=== PATIENT | female | born 1940 | race Caucasian/White ===

== ENCOUNTER 2022-11-15 08:52 | Outpatient (OUT) | payer MEDICARE, SELFPAY ==
--- NOTE | 2022-11-15 09:01 | MM_ITS ---
Patient: SURAJ LEWIS Exam Date: 11/15/2022 : 1940 Gender:F Ordering : MRS. WEI RIVER . Admission #: [id number] Family : Order #: [id number] CLICK HERE TO VIEW EXAM RADIOLOGY REPORT PROCEDURE: MM TOMOSYNTHESIS SCREENING BI COMPARISON: MG MAMM SCREEN FARIBA W CAD, 02/26/2020. MG MAMM SCREEN FARIBA W CAD, 05/29/2017. INDICATIONS: Screening Calculator Name NCI Breast Cancer Risk Assessment Tool 5 Year Breast Cancer Risk 1.10% Lifetime Breast Cancer Risk 1.30% Personal Breast Cancer No Personal Ovarian Cancer No Treatments None Family Cancers None LOCATION: [facility] BREAST COMPOSITION: Heterogeneously dense,which may obscure small masses. FINDINGS: DIAGNOSTIC CATEGORY 2--BENIGN FINDING: RIGHT BREAST: No significant suspicious finding. Scattered benign-appearing calcifications are present. No significant change has occurred. LEFT BREAST: No significant suspicious finding. Scattered benign-appearing calcifications are present. No significant change has occurred. RECOMMENDATIONS: ROUTINE MAMMOGRAM AND CLINICAL EVALUATION IN 12 MONTHS. PLEASE NOTE: A NORMAL MAMMOGRAM DOES NOT EXCLUDE THE POSSIBILITY OF BREAST CANCER. A CLINICALLY SUSPICIOUS PALPABLE LUMP SHOULD BE BIOPSIED. Dictated by: Juan Antonio Montes De Oca M.D. on 11/15/2022 at 14:09 Approved by: Juan Antonio Montes De Oca M.D. on 11/15/2022 at 14:23
--- NOTE | 2022-11-15 09:40 | XR_ITS ---
[address] [address] Patient Name: SURAJ LEWIS MRN: [id number] date: 1940 Sex: F Assigned Patient Location: [facility] Current Patient Location: [facility] Accession/Order Number: [id number] Exam Date: 11/15/2022 09:30 Report Date: 11/15/2022 09:46 At the request of: WEI RIVER Procedure: XR DEXA axial skeleton EXAMINATION: XR DEXA axial skeleton HISTORY: Primary Ovarian Failure Z00.0 COMPARISON: DEXA bone densitometry 02/26/2020 TECHNIQUE: Dual-energy X-ray absorptiometry (DXA) was performed. FINDINGS: SPINE ANALYSIS: Average bone mineral density is 1.440 g/cm2. T-score (standard deviation relative to young adult mean): 2.2 . +6.8% change since prior study. HIP ANALYSIS: Lowest bone mineral density is within the left femoral neck, 0.759 g/cm2. T-score (standard deviation relative to young adult mean): -2.0 . -1.7% change since prior study. XR/XR DEXA axial skeleton IMPRESSION: [employer] Classification: Osteopenia - Moderate Fracture Risk Electronically authenticated by: JANE CHERRY Date: 11/15/2022 09:46
== END 2022-11-15 08:53 | disposition home or self-care (01) ==
LOC: MAMMO 08:52
PROVIDERS: PCP Nurse Practitioner; Visit Provider Nurse Practitioner
DX: E28.39 Other primary ovarian failure (principal); Z12.31 Encounter for screening mammogram for malignant neoplasm of breast; M85.80 Other specified disorders of bone density and structure, unspecified site
CPT/HCPCS: 77063; 77067; 77080

== ENCOUNTER 2024-04-06 11:38 | Outpatient (OUT) | payer MEDICARE, SELFPAY ==
--- OUTSIDE RECORDS SUMMARY | 2024-04-06 12:00 | XMS_ITS | CCD ---
Author Organization [facility] Care Team Providers Care Meter Reading Clerk Name Role Phone Fior Collins Unavailable Jacob Finley Unavailable PENNY, DR INDIA Mccullough Attending Unavailable LINDA, DR INDIA Mccullough Admitting Unavailable LINDA, DR INDIA Mccullough Primary Care Unavailable LINDA, DR INDIA Mccullough Consulting Unavailable LINDA, DR INDIA Mccullough Consulting Unavailable LINDA, DR INDIA Mccullough Primary Care Unavailable LINDA, DR INDIA Mccullough Attending Unavailable LINDA, DR INDIA Mccullough Admitting Unavailable LINDA, DR INDIA Mccullough Attending Unavailable LINDA, DR INDIA Mccullough Primary Care Unavailable LINDA, DR INDIA Mccullough Admitting Unavailable LINDA, DR INDIA Mccullough Consulting Unavailable WEST, DR SADE Aceves Consulting Unavailable LINDA, DR INDIA Mccullough Admitting Unavailable LINDA, DR INDIA Mccullough Primary Care Unavailable LINDA, DR INDIA Mccullough Attending Unavailable LINDA, DR INDIA Mccullough Consulting Unavailable LINDA, DR INDIA Mccullough Attending Unavailable LINDA, DR INDIA Mccullough Primary Care Unavailable LINDA, DR INDIA Mccullough Admitting Unavailable LINDA, DR INDIA Mccullough Consulting Unavailable LINDA, DR INDIA Mccullough Admitting Unavailable LINDA, DR INDIA Mccullough Primary Care Unavailable LINDA, DR INDIA Mccullough Attending Unavailable LINDA, DR INDIA Mccullough Consulting Unavailable PENNY, DR INDIA Mccullough Admitting Unavailable LINDA, DR INDIA Mccullough Primary Care Unavailable LINDA, DR INDIA Mccullough Consulting Unavailable PENNY, DR INDIA Mccullough Attending Unavailable WEST, DR SADE Aceves Consulting Unavailable PENNY, DR INDIA Mccullough Admitting Unavailable LINDA, DR INDIA Mccullough Primary Care Unavailable LINDA, DR INDIA Mccullough Consulting Unavailable LINDA, DR INDIA Mccullough Attending Unavailable DILIP, DR JANE Alcala Consulting Unavailable PENNY, DR INDIA Mccullough Admitting Unavailable LINDA, DR INDIA Mccullough Primary Care Unavailable LINDA, DR INDIA Mccullough Consulting Unavailable PENNY, DR INDIA Mccullough Referring Unavailable LINAD, DR INDIA Mccullough Attending Unavailable LINDA, DR INDIA Mccullough Admitting Unavailable LINDA, DR INDIA Mccullough Primary Care Unavailable PENNY, DR INDIA Mccullough Consulting Unavailable PENNY, DR INDIA Mccullough Attending Unavailable MELCHOR FISH Consulting Unavailable MD India Linda Primary Care Provider DO Jacob Finley Attending Provider [phone] INDIA LINDA Primary Care Physician SHENDGE, VITHAL Referring Unavailable SHENDGE, VITHAL Attending Unavailable SHENDGE, VITHAL Attending Unavailable SHENDGE, VITHAL Attending Unavailable SHENDGE, VITHAL Admitting Unavailable SHENDGE, VITHAL Attending Unavailable SHENDGE, VITHAL Attending Unavailable SHENDGE, VITHAL Referring Unavailable SHENDGE, VITHAL Referring Unavailable SHENDGE, VITHAL Referring Unavailable Alejandro, Winter Da Silva Primary Care Physician [phone] Alejandro, Winter Da Silva Attending Unavailable Alejandro, Winter L Admitting Unavailable Alejandro, Winter L Attending Unavailable Alejandro, Winter L Attending Unavailable Alejandro Winter RUT[place]ORD Unavailable Unallocated , [place] Provider Primary Care Provi hari Alejandro, Winter L Admitting Unavailable Alejandro, Winter L Attending Unavailable Alejandro, Winter L Attending Unavailable Alejandro, Winter L Attending Unavailable Alejandro, Winter L Attending Unavailable Dolce, Marky D Admitting Unavailable Dolce, Marky Kiel Attending Unavailable Dolce, Marky D Referring Unavailable Unallocated MD, Noms Provider Primary Care Provi hari DOLCE, MARKY Kiel Attending Unavailable DOLCE, MARKY Kiel Attending Unavailable DOLCE, MARKY Kiel Attending Unavailable DOLCE, MARKY D Attending Unavailable CONCEPCIÓN, HAYLEY A Attending Unavailable DOLCE, MARKY D Attending Unavailable CONCEPCIÓN, HAYLEY A Attending Unavailable DOLCE, MARKY D Attending Unavailable Allergies Allergy Classification Reported Allergen(s) Allergy Type Date of Onset Reaction(s) Facility (4 sources) Aspirin; Translations: [ASPIRIN] Drug Allergy 0 [facility] Repository (1 source) Cotton Seed extract Drug Allergy 0 [facility] Repository (7 sources) Azithromycin; Translations: [azithromycin] Drug Allergy 3 Unknown (qualifier value) [facility] (2 sources) Aspirin; Translations: [aspirin] Drug Allergy 0 Unknown [facility] (2 sources) Bee/Wasp/Ant venom; Translations: [Bee Stings] Allergy to substance Anaphylaxis (disorder) [facility] Medications Current Medications Medication Drug Class(es) Dates Sig (Normalized) Sig (Original) albuterol 0.83 mg/ml inhalation solution (20 sources) beta2-Adrenergic Agonist Start: 06-11-2023 End: 06-11-2023 take 2.5 mg by inhalation four times daily Albuterol Sulfate Active 2.5 MG INHALATION Four times daily 360 30 June 11, 2023 11:57am J44.9 Start: 06-04-2023 take 1 puff(s) by in halation every four hours as needed Albuterol Sulfate Active 1 PUFF INHALATION Every 4 hours June 04, 2023 12:00am FreeTextSi puff as needed Inhalation every 4 hrs; Note: Source Status: Refill; Refills: 11; Provider: Dennis Ramirez Start: 06-04-2023 End: 06-11-2023 take 1 mg by inhalation four times daily Albuterol Sulfate Discontinued MG INHALATION June 04, 2023 12:00am June 11, 2023 11:51am FreeTextSig: as directed Inhalation Four times daily DX COPD J44.9; Note: Source Status: Continue; Provider: Dennis Childress ( ) Start: 11-27-2022 take 1 puff(s) by in halation every four hours as needed albuterol HFA 90 mcg/act inhaler INHALE 1 PUFF EVERY 4 HOURS NEEDED 11/27/2022 Active Albuterol Sulfat e (2.5 MG/3ML) 0.083% as directed Inhalation Four times daily DX COPD J44.9 Active take 1 puff(s) by in halation every four hours as needed Albuterol Sulfate HFA 108 (90 Base) MCG/ACT 1 puff as needed Inhalation every 4 hrs for 30 days Active take 1 puff(s) by in halation every four hours as needed Albuterol Sulfate HFA 108 (90 Base) MCG/ACT 1 puff as needed Inhalation every 4 hrs Active alendronic acid 35 mg oral tablet (13 sources) Bisphosphonate Start: 12-18-2023 take 35 mg by mouth every week Alendronate Active 35 MG PO every week December 18, 2023 12:00am Start: 11-15-2022 alendronate (F osamax) 35 MG tablet TAKE ONE TABLET BY MOUTH ONCE WEEKLY (EVERY 7 DAYS) 11/15/2022 Active Allergy (2 sources) Start: 07-16-2022 Allergy Refill s(s) 0 Start Date: 07/16/22 Status: Ordered atorvastatin 10 mg oral tablet (6 sources) HMG-CoA Reductase Inhibitor Start: 12-23-2023 take 1 tablet by mouth at bedtime atorvastatin 10 mg Tab 10 mg = 1 tab(s), Oral, Bedtime, # 90 tab(s), Refills(s) 0, [facility], 164.5, cm, 12/23/23 11:31:00 EDT, Height/Length Dosing, 69.8, kg, 12/23/23 11:31:00 EDT, Weight Dosing Start Date: 12/23/23 Status: Ordered Start: 07-02-2022 take 10 mg by mouth every other day Atorvastatin Active 10 MG PO .qod June 11, 2023 12:00am B-Complex with B-12 oral tablet (2 sources) Start: 07-16-2022 B-Complex with B-12 oral tablet 1 tab(s), Oral, Daily, 30 tab(s), Refill(s) 0 Start Date: 07/16/22 Status: Ordered Breo Ellipta 100-25 MCG/INH (1 source) take 1 puff(s) by inhalation once daily Breo Ellipta 100-25 MCG/INH 1 puff Inhalation Once a day for 90 days Active cetirizine hydrochloride 10 mg oral capsule (2 sources) Histamine-1 Receptor Antagonist Start: 06-11-2023 take 1 capsule by mouth once daily Cetirizine (Allergy Relief (Cetirizine)) 10 mg capsule Active 10 MG PO Daily June 11, 2023 12:00am dorzolamide / Timolol (1 source) Carbonic Anhydrase Inhibitor, beta-Adrenergic Bambi Start: 12-18-2023 take 1 drop(s) into the eye(s) once Dorzolamide-Timol ol Active 1 DROPS OPHTHALMIC Once December 18, 2023 12:00am fluticasone / salmeterol (2 sources) Corticosteroid, beta2-Adrenergic Agonist Start: 07-02-2022 Advair Diskus 500 mcg-50 mcg inhalation powder See Instructions, Refill(s) 0, one inhalation daily Start Date: 07/02/22 Status: Ordered 30 actuat fluticasone furoate 0.1 mg/actuat / vilanterol 0.025 mg/actuat dry powder inhaler (19 sources) Corticosteroid, beta2-Adrenergic Agonist Start: 06-12-2023 take 1 puff(s) by mouth once daily Fluticasone Furoate-Vilantero l (Breo Ellipta) 100-25 mcg/dose blister with device Active 0 .ROUTE .COMPLEX 360 June 12, 2023 11:58am inhale 1 puff by mouth and INTO THE LUNGS once daily Start: 06-04-2023 End: 06-12-2023 take 1 puff(s) by inhalation once daily Fluticasone Furoate-Vilanterol (Breo Ellipta) 100-25 mcg/dose blister with device Discontinued 1 PUFF INHALATION Daily June 04, 2023 12:00am June 12, 2023 11:59am FreeTextSi puff Inhalation Once a day; Note: Source Status: Refill; Refills: 11; Provider: Dennis Childress take 1 puff(s) by mo [facility] once daily Breo Ellipta 100-25 MCG/ACT aerosol powder INHALE 1 PUFF BY MOUTH DAILY Active hydroCHLOROthiazide 12.5 mg oral capsule (20 sources) Thiazide Diuretic Start: 07-16-2022 End: 12-18-2023 take 1 capsule by mouth once daily hydrochlorothiazide 12.5 mg Cap 12.5 mg = 1 cap(s), Oral, Daily, Refills(s) 0 Start Date: 07/16/22 Status: Ordered Start: 10-06-2020 take 1 tablet by [facility] every twenty-four hours hydroCHLOROthiazide 12.5 MG 1 tablet in the morning Orally Once a day for 90 days Sep, Active magnesium oxide 250 mg oral tablet (2 sources) Start: 06-11-2023 take 1 tablet by mouth once daily Magnesium Oxide Active 1 TAB PO Daily June 11, 2023 12:00am FreeTextSi tablet with a meal Orally Once a day; Note: Source Status: Not-Taking\PRN; Provider: Dennis Childress ( ) meloxicam 7.5 mg oral tablet (2 sources) Nonsteroidal Anti-inflammatory Drug Meloxicam 7.5 MG Ora l for 30 Days Active Misc Medication (2 sources) Start: 2022 Misc Medication collagen, Daily Start Date: 11/08/22 Status: Ordered Multi For Her - (7 sources) Multi For Her - as directed Orally Active Multivitamin (Daily Multi-Vitamin) tablet (2 sources) Start: 06-04-2023 take 1 tablet by mouth once daily Multivitamin (Daily Multi-Vitamin) tablet Active 1 TAB PO Daily June 04, 2023 12:00am Oxygen (2 sources) Start: 06-04-2023 Oxygen Active 0 .Route June 04, 2023 12:00am 2 liters at night and prn Opendisc Oxygen - for Home (2 sources) Start: 07-16-2022 Oxygen - for Home 2 L/min, Daily, Refill(s) 0, Oxygen - At HS Start Date: 07/16/22 Status: Ordered Oxygen 2 liters (3 sources) Oxygen 2 liters at night AND PRN with long activity Active Oxygen 3 liters (4 sources) Oxygen 3 liters at night Active Potassium gluconate (6 sources) take 1 tablet by mouth once daily Potassium Gluconate 595 (99 K) MG 1 tablet Orally Once a day Active predniSONE (1 source) Start: 10-23-2023 predniSONE 10 mg Tab 0 Refill(s), Refills(s) 0 Start Date: 10/23/23 Status: Ordered Ventolin HFA 90 mcg/inh Aerosol-Adpt (4 sources) Start: 07-02-2022 Ventolin HFA 90 mcg/inh Aerosol-Adpt See Instructions, Refill(s) 0, 1-2 puffs inhaled 4 times a day when needed Start Date: 07/02/22 Status: Ordered Vitamin B-12 ER 1000 MCG (4 sources) take 1 tablet by mouth once daily Vitamin B-12 ER 1000 MCG 1 tablet Orally Once a day Active vitamin b12 1 mg oral tablet (5 sources) Vitamin B12 Start: 06-04-2023 take 1 tablet by mouth once daily Cyanocobalamin (Vitamin B-12) (Vitamin B-12) 1,000 mcg tablet Active 1000 MCG PO Daily June 04, 2023 12:00am take 1 tablet by angy th every twenty-four hours Vitamin B-12 ER 1000 MCG 1 tablet Orally Once a day Active Completed/Discontinued Medications Medication Drug Class(es) Dates Sig (Normalized) Sig (Original) Magnesium (7 sources) take 1 tablet by angy th once daily Magnesium 250 MG 1 tablet with a meal Orally Once a day Not-Taking take 1 tablet by mouth once tavon y Magnesium 250 MG 1 tablet with a meal Orally Once a day Active One A Day Women's Complete (2 sources) Start: 07-16-2022 One A Day Wome n's Complete Refill(s) 0 Start Date: 07/16/22 Status: Ordered Problems Active Problems Problem Classification Problem Date Documented Da te Episodic/Chronic Acquired foot deformities (5 sources) Hallux valgus (acquired), left foot; Translations: [Hallux valgus (acquired)] 01-18-2024 Chronic Asthma (18 sources) Asthma; Translations: [Asthma-chronic obstructive pulmonary disease overlap syndrome] Onset: 01-28-2023 07-02-2022 Chronic Comment on above: extrinisc without st atus asthmaticus Chronic obstructive pulmonary disease and bronchiectasis (20 sources) Chronic obstructive lung disease; Translations: [Chronic obstructive pulmonary disease, unspecified] Onset: 01-12-2021 Resolved: 12-12-2021 Chronic Coagulation and hemorrhagic disorders (2 sources) Coagulation defect, unspecified; Translations: [Coagulation defect, unspecified] Onset: 09-07-2022 Chronic Diabetes mellitus with complications (1 source) Disorder of nervous system due to type 2 diabetes mellitus; Translations: [Type 2 diabetes mellitus with other diabetic neurological complication] 01-18-2024 Chronic Disorders of lipid metabolism (19 sources) Pure hypercholesterolemia , unspecified; Translations: [Hyperlipidemia, unspecified] Onset: 01-16-2021 Chronic Fracture of lower limb (3 sources) Nondisplaced fracture of fifth metatarsal bone, left foot, initial encounter for closed fracture; Translations: [Nondisplaced fracture of fifth metatarsal bone, left foot, subsequent encounter for fracture with routine healing] Onset: 09-20-2021 Resolved: 10-27-2021 Episodic Mycoses (1 source) Onychomycosis; Translations: [Tinea unguium] 01-18-2024 Episodic Osteoarthritis (7 sources) Unilateral primary osteoarthritis, right hip; Translations: [Osteoarthritis of hip] Onset: 11-15-2021 07-02-2022 Chronic Other acquired deformities (2 sources) Unequal limb length (acquired), right femur; Translations: [Unequal limb length (acquired), right femur] Onset: 01-18-2023 Episodic Other and ill-defined heart disease (7 sources) Heart disease; Translations: [Heart disease, unspecified] Chronic Other and ill-defined heart disease (4 sources) Heart disease, unspecified; Translations: [Diastolic dysfunction without heart failure I51.9] Onset: 01-12-2021 Resolved: 12-12-2021 Chronic Other and ill-defined heart disease (2 sources) Diastolic dysfunction; Translations: [Other ill-defined heart diseases] 06-10-2023 Chronic Other and ill-defined heart disease (2 sources) Other ill-defined heart diseases; Translations: [Heart disease, unspecified] 06-11-2023 Chronic Other bone disease and musculoskeletal deformities (2 sources) Osteopenia 10-23-2023 Episodic Other connective tissue disease (2 sources) Presence of right artificial hip joint; Translations: [Presence of right artificial hip joint] Onset: 01-18-2023 Chronic Other connective tissue disease (1 source) Pain in left foot; Translations: [PAIN IN LEFT FOOT] Onset: 09-20-2021 Episodic Other connective tissue disease (1 source) Pain of toe of right foot; Translations: [Pain in right toe(s)] 01-18-2024 Episodic Other connective tissue disease (1 source) Pain of toe of left foot; Translations: [Pain in left toe(s)] 01-18-2024 Episodic Other ear and sense organ disorders (3 sources) Sensorineural hearing loss, bilateral; Translations: [Sensorineural hearing loss, bilateral] 12-19-2023 Chronic Other lower respiratory disease (12 sources) Hypoxia; Translations: [Hypoxemia] 07-02-2022 Episodic Other lower respiratory disease (7 sources) Dyspnea on exertion; Translations: [Dyspnea, unspecified] Episodic Other non-traumatic joint disorders (4 sources) Pain in left ankle and joints of left foot; Translations: [PAIN IN LEFT ANKLE] Onset: 09-15-2021 Episodic Other non-traumatic joint disorders (4 sources) Disorder of shoulder 07-02-2022 Episodic Other non-traumatic joint disorders (4 sources) Hip pain 07-02-2022 Episodic Other nutritional; endocrine; and metabolic disorders (1 source) Overweight in adulthood with body mass index of 25 or more but less than 30 12-23-2023 Episodic Peripheral and visceral atherosclerosis (3 sources) Peripheral vascular disease, unspecified; Translations: [Peripheral vascular disease, unspecified] 01-18-2024 Chronic Residual codes; unclassified (7 sources) Sleep apnea; Translations: [Sleep apnea, unspecified] Chronic Respiratory failure; insufficiency; arrest (adult) (1 source) Chronic hypoxemic respiratory failure 10-24-2023 Chronic Comment on above: added per 10/22/2023 query response. Unclassified (3 sources) COUGH, UNSPECIFIED; Translations: [COUGH, UNSPECIFIED] Onset: 07-20-2021 Unclassified (3 sources) CONTACT W/AND (SUSP) EXPOS COVID-19; Translations: [CONTACT W/AND (SUSP) EXPOS COVID-19] Onset: 12-07-2020 Unclassified (2 sources) Patient encounter status 10-23-2023 Viral infection (4 sources) COVID-19; Translations: [COVID-19] Onset: 12-21-2020 Past or Other Problems Problem Classification Problem Date Documented Da te Episodic/Chronic Deficiency and other anemia (1 source) Anemia, unspecified; Translations: [ANEMIA UNSPECIFIED] Onset: 06-21-2021 Episodic Deficiency and other anemia (4 sources) Iron deficiency anemia, unspecified; Translations: [IRON DEFICIENCY ANEMIA UNSPECIFIED] Onset: 01-10-2021 Episodic Deficiency and other anemia (11 sources) Iron deficiency anemia; Translations: [Iron deficiency anemia, unspecified] Onset: 07-06-2022 Resolved: 01-18-2024 07-02-2022 Episodic Glaucoma (9 sources) Glaucoma; Translations: [Unspecified glaucoma] Onset: 01-18-2024 Resolved: 01-18-2024 10-22-2023 Chronic Comment on above: noted in 08/30/2023 [facility] Consult Note page 1. added per OP CDI. Immunizations and screening for infectious disease (1 source) Encounter for immunization; Translations: [ENCOUNTER FOR IMMUNIZATION] Onset: 12-23-2020 Episodic Malaise and fatigue (1 source) Other fatigue; Translations: [OTHER FATIGUE] Onset: 01-16-2021 Episodic Other lower respiratory disease (1 source) Hypoxemia; Translations: [Hypoxia R09.02] Onset: 01-12-2021 Resolved: 01-12-2021 Episodic Other lower respiratory disease (4 sources) Cough; Translations: [COUGH] Onset: 12-13-2020 Episodic Other non-traumatic joint disorders (6 sources) Pain in right hip; Translations: [PAIN IN RIGHT HIP] Onset: 11-13-2021 Episodic Retinal detachments; defects; vascular occlusion; and retinopathy (13 sources) Exudative age-related macular degeneration; Translations: [Nonexudative age-related macular degeneration] Onset: 01-18-2024 Resolved: 01-18-2024 10-22-2023 Chronic Comment on above: noted in 08/30/2023 [facility] Consult Note page 1. added per OP CDI. Spondylosis; intervertebral disc disorders; other back problems (2 sources) Radiculopathy, lumbosacral region; Translations: [Radiculopathy, lumbosacral region] Onset: 09-07-2022 Episodic Unclassified (6 sources) Post COVID-19 condition, unspecified; Translations: [Post COVID-19 condition, unspecified] Unclassified (1 source) Post COVID-19 condition, unspecified U09.9; Translations: [Post COVID-19 condition, unspecified U09.9] Onset: 01-12-2021 Resolved: 01-12-2021 Unclassified (1 source) COUGH, UNSPECIFIED; Translations: [COUGH, UNSPECIFIED] Onset: 07-18-2021 Unclassified (1 source) CONTACT W/AND (SUSP) EXPOS COVID-19; Translations: [CONTACT W/AND (SUSP) EXPOS COVID-19] Onset: 12-15-2020 Unclassified (1 source) Post-acute COVID-19 (disorder); Translations: [Post COVID-19 condition, unspecified] Unclassified (1 source) PAD (peripheral artery disease) ([facility]) 01-17-2024 Results Test Name Value Interpretation Reference Range Facility US PVR Lower EXT Complete Bi laton 02-27-2024 US PVR Lower EXT Complete Bilat Exam Date/Time: 02/27/2024 12:43 EST Reason for Exam: I73.9 Report IMPRESSION: EVIDENCE OF MILD ARTERIAL STENOTIC DISEASE INVOLVING THE LEFT LOWER EXTREMITY. NO EVIDENCE OF SIGNIFICANT ARTERIAL STENOTIC DISEASE INVOLVING THE RIGHT LOWER EXTREMITY. CLINICAL HISTORY: I73.9. COMPARISON: None available. FINDINGS: On the right, the brachial systolic pressure is 164 the high thigh pressure is 250 , index 1.52 the low thigh pressure is 234 , index 1.43 the calf pressure is 175 , index 1.07 the posterior tibial ankle pressure is 184 , index 1.12 the dorsalis pedis ankle pressure is 184 , index 1.12 and the digit pressure is 100 , index 0.61 (with normal 0.7 or greater). The plethysmography waveforms are mild to moderately abnormal. On the left, the brachial systolic pressure is 156 the high thigh pressure is 184 , index 1.12 the low thigh pressure is 183 , index 1.12 the calf pressure is 150 , index 0.91 the posterior tibial ankle pressure is 144 , index 0.88 the dorsalis pedis ankle pressure is 156 , index 0.95 and the digit pressure is 70, index 0.43 (with normal 0.7 or greater). The plethysmography waveforms are mild to moderately abnormal. Ordering Provider: Marky Bell FINAL REPORT Dictated: 02/27/2024 1:17 pm Timi Oswald MD Signed (Electronic Signature): 02/27/2024 1:17 pm Signed by: Timi Oswald MD Transcribed by: SHANNAN Technologist: ROSE Butts [facility] Ambulatory Visit Summaryon 0 12-23-2023 Ambulatory Visit Summary Ambulatory Visit Summary SURAJ HUYNH :1940 Visit Date:12/23/2023 Ambulatory Visit Instructions Your Diagnosis Encounter for general adult medical examination with abnormal findings Asthma Pulmonary emphysema Hyperlipidemia Osteopenia Immunization refused Overweight Your Care Team Attending Physician - iWnter Noriega Primary Care Physician - Winter Noriega This Is Your Medications List Non-Formulary Medication (Misc Medication) Oxygen (Oxygen - for Home) albuterol (Ventolin HFA 90 mcg/inh Aerosol-Adpt) alendronate (alendronate 35 mg Tab) atorvastatin (atorvastatin 10 mg Tab) diphenhydrAMINE (Allergy) hydrochlorothiazide (hydrochlorothiazide 12.5 mg Cap) multivitamin (B-Complex with B-12 oral tablet) multivitamin with minerals (One A Day Women's Complete) Procedures Performed Biopsy of breast, Colonoscopy, IH - Inguinal hernia, LILLIAN BSO - Total abdominal hysterectomy and bilateral salpingo-oophorectomy, Tonsillectomy and adenoidectomy. Discharge Vitals Heart Rate (Peripheral) 60 Respiratory Rate 14 Blood Pressure 136/58 Height 65 in Height 164.5 cm Weight 153.56 lb Weight 69.8 kg BMI 25.79 What to do next Scheduled Follow-Up Appointments Saturday 10:20 AM EST With: Winter Noriega Where: [address] [id number]- Saturday 11:00 AM EDT With: Where: [address] [id number]- Medications What How Much When Instructions Unchanged albuterol (Ventolin HFA 90 mcg/ inh Aerosol-Adpt) See instructions 1-2 puffs inhaled 4 times a day when needed Unchanged alendronate (alendronate 35 mg Tab) 1 Tablets By Mouth Every 7 days Unchanged atorvastatin (atorvastatin 10 mg Tab) 1 Tablets By Mouth At bedtime Unchanged diphenhydrAMINE (Allergy) Unchanged hydrochlorothiazide (hydrochlorothiazide 12.5 mg Cap) 1 Capsules By Mouth Every day Unchanged multivitamin (B-Complex with B-12 oral tablet) 1 Tablets By Mouth Every day Unchanged multivitamin with minerals (One A Day Women's Complete) Unchanged Non-Formulary Medication (Misc Medication) collagen Every day Unchanged Oxygen (Oxygen - for Home) 2 Liter/minute Every day Oxygen - At Medications and Immunizations Administered Not Given influenza virus vaccine, inactivated, Patient Refuses Allergies Bee Stings (Anaphylactic reaction) aspirin (Unknown) azithromycin (Unknown) Problems Ongoing - Any problem that you are currently receiving treatment for. 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 Macular degeneration, wet Patient Survey You may receive a survey via text or e-mail asking about your office visit. Please share your experience with us by completing your survey. We appreciate your feedback and thank you for choosing us for your care. Education Materials BMI for Adults Body mass index (BMI) is a number found using a person's weight and height. BMI can help tell how much of a person's weight is made up of fat. BMI does not measure body fat directly. It is used instead of tests that directly measure body fat, which can be difficult and expensive. What are BMI measurements used for? BMI is useful to: ? Find out if your weight puts you at higher risk for medical problems. ? Help recommend changes, such as in diet and exercise. This can help you reach a healthy weight. BMI screening can be done again to see if these changes are working. How is BMI calculated? Your height and weight are measured. The BMI is found from those numbers. This can be done with U.S. or metric measurements. Note that charts and online BMI calculators are available to help you find your BMI quickly and easily without doing these calculations. To calculate your BMI in U.S. measurements: 1. Measure your weight in pounds (lb). 2. Multiply the number of pounds by 703. ? So, for an adult who weighs 150 lb, multiply that number by 703: 150 x 703, which equals 105,450. 3. Measure your height in inches. Then multiply that number by itself to get a measurement called inches squared. ? So, for an adult who is 70 inches tall, the inches squared measurement is 70 inches x 70 inches, which equals 4,900 inches squared. 4. Divide the total from step 2 (number (more content not included)... Normal [facility] Family Medicine Office/Clini c Noteon 12-23-2023 Family Medicine Office/Clinic Note Family Medicine Office/Clinic Note Chief Complaint Subsequent Medicare Wellness Review of Systems PHQ Score Initial Depression Screen Score: 0 SCORE Physical Exam Vitals & Measurements HR: 60(Peripheral) RR: 14 BP: 136/58 SpO2: 93% HT: 164.5 cm HT: 65 in WT: 69.8 kg WT: 153.56 lb BMI: 25.79 Assessment/Plan 1. Encounter for general adult medical examination with abnormal findings (Z00.01: Encounter for general adult medical examination with abnormal findings) The patient was given a customized and personalized print out of all the current AHRQ USPSTF?s recommendations for preventative services and all current CDC recommended immunizations, relevant risk recommendations and the following patient brochures were given. Reviewed Medicare Prevention Services checklist. CDC-Falls Prevention and home safety screening reviewed. Patient reports one fall in last 12 months, voices no worry about falling. Patient reports wearing the wrong shoes, tripped and fell in kitchen with coffee mug breaking and cutting left index finger. Patient reports it is in the bend of the finger. Patient reports finger is still bleeding some when bending finger. Recommended new skin with lidocaine or no suture suture (spoke with MAN Max and Dr. Heredia). Exhibits no problems with sitting, standing or ambulation. Patient aware with keeping walk way area free of clutter to prevent tripping and/or falling. [place] Advance Directives reviewed. Documents remain at home, encouraged to bring in for scanning into chart. Patient is not an organ donor. Patient denies any problems with ADL?s and Instrumental ADL?s. Cognitive screening completed with memory and clock face drawing. Patient did not complete clock correctly and did not remember any of the 3 memory words. Completed the MMSE screening, score 30. Immunization record reviewed, discussed Shingrix vaccine with educational handout and availability. 2 COVID vaccines have been administered. Allergies and medications reviewed and up to date. No concerns with taking medication as prescribed. Reviewed OTC medications, medication list up to date. Blood tests were reviewed: Up to date. No concerns with bowel/ bladder. Patient no longer does colonoscopy screenings due to age. Reviewed pain symptoms : back pain in the last month, rates pain as a 3 out of 10. Patient reports pain has subsided, no pain today. Reviewed all outside providers that patient follows. Last visit summary notes available in chart and/or have been requested. Patient declines any signs or symptoms of depression at this time. 8 minutes spent with screening and documentation. PHQ2 screening score 0. Patient drinks alcohol every day 1 drinks in the evening, denies concerns. 8 minutes spent with screening and documentation. Audit score 4. Follow up scheduled with PCP, 04/06/2024 AWV has been scheduled, 12/22/2024 Medicare provides yearly screening for alcohol and depression concerns. This is completed during our Medicare wellness visit for those who do not have a current diagnosis of depression or concerns with alcohol use. I spent a total of 17 minutes on this date of service which included preparing to see the patient, face to face patient care, completing clinical documentation, obtaining and/or reviewing separately obtained history, counseling and educating the patient with handouts. Explanations were provided with reviewing questionnaires. AUDIT risk assessment screening completed, risk score 4 with patient denying concerns with use. Completed PHQ-2 risk assessment for depression with risk score 0, negative findings. Patient has been reminded to notify the provider if there would be a change or concerns with symptoms with fear, unable to sleep, worrying too much or feeling down and/or sad with lost of interest with daily activities. Will continue to monitor with screening yearly during Medicare wellness visits. 2. Asthma (J45.909: Unspecified asthma, uncomplicated) Patient has albuterol rescue inhaler, denies using it on a regular basis. Patient is unsure when she used it last. Patient follows with Dr Irene, Pulmonology. 3. Pulmonary emphysema (J43.9: Emphysema, unspecified) see #2 Patient pulse ox initially today 91% room air, about 10 minutes later it was increased to 93%. Patient denies shortness of breath. Patient does not show labored breathing. Patient reports that she uses 2 liters of oxygen at night while sleeping. 4. Hyperlipidemia (E78.5: Hyperlipidemia, unspecified) Reviewed healthy lifestyle with low fat diet and exercise regimen. When you are overweight our body produces more lipids. Risk also increases with family history of hyperlipidemia and with monitoring alcohol use and avoid smoking. Pt voices understanding with importance of monitoring dietary intake to reduce risk factors associated with CVA. Taking statin medications daily as directed. Will continue to follow up with office visits with updated labs as directed. 5. Osteopenia (M85.80: Other (more content not included)... Normal [facility] Comment on above: Result Comment: Elec tronically Signed By: Winter Noriega\.br\Date and Time Signed: 12/23/23 13:36 EDT\.br\Electronically Co-Signed By: Nina Quiroz\.br\Date and Time Co-Signed: 12/23/23 13:18 EDT Auditory function testson Right Ear: Mild sloping to profound sensorineural hearing loss above 250 Hz Left Ear: Mild sloping to severe sensorineural hearing loss [facility] Pre-Visit Planningon 024 Pre-Visit Planning Pre-Visit Planning From: Agustina Hernandez To: Winter Noriega; Sent: 10/22/2023 11:49:37 EDT Subject: Pre-Visit Planning Due Date/Time: 10/22/2023 11:49:00 EDT Caller Name: SURAJ HUYNH; Caller Number: Kamlesh , Ashely Luis Max. During a pre-visit planning chart review, I noted the following documentation in the medical record: Current Problem List: Asthma, COPD, Hypoxia, and Pulmonary emphysema. Current Medication List: albuterol, albuterol-ipratropium, Breo Ellipta, fluticasone-vilanterol , diphenhydramine, and Oxygen. 2022 Medicare Wellness Visit: COPD (chronic obstructive pulmonary disease) (J44.9: Chronic obstructive pulmonary disease, unspecified) Patient takes albuterol and Advair as prescribed with effectiveness. Patient wears 2 liters of O2 at HS. Patient using inhalers daily as directed with effectiveness. Neck measurement 11.8 inches with today's visit. Encouraged to remain active, reviewed Pulmonary nutritional recommendations handout during visit. Will continue to monitor for changes and/or concerns with office visits. Pulse ox today was 92%. Patient follows with Dr. Irene every 6 months for symptom and medication management. Based on your medical judgment, can you please clarify which, if any, of the following conditions are present? I can update the Chronic Problem List with your response if you would like. -Chronic respiratory failure with hypoxia -Other: In responding to this request, please exercise your independent professional judgment. The fact that a question is asked does not imply that any particular answer is desired or expected. If you have any questions, please feel free to contact me at extension [phone]. Thank you! Agustina Hernandez LPN Clinical Orthopedic Mechanic [place] [address] Extension: [phone] [email or web address] From: Winter Noriega To: Agustina Hernandez; Sent: 10/24/2023 11:14:03 EDT Subject: RE: Pre-Visit Planning Caller Name: SURAJ HUYNH; Caller Number: Kamlesh , Ashley chronic resp failure with hypoxia Normal [facility] Reminderson 10-24-2023 Reminders Reminders From: Winter Noriega To: [facility] - Clinical; Sent: 10/24/2023 08:04:15 EDT Show up: 10/24/2023 08:05:00 EDT Subject: Ambulatory Reminder Due Date/Time: 10/25/2023 08:04:00 EDT labs look good Results: Date Result Name Ind Value Ref Range 10/23/2023 10:17 WBC 6.0 E9/L (4.0 - 11.0) 10/23/2023 10:17 RBC 4.5 E12/L (4.3 - 5.9) 10/23/2023 10:17 HGB 12.3 gm/dL (12.0 - 16.0) 10/23/2023 10:17 Hct 38.2 % (34.0 - 46.0) 10/23/2023 10:17 MCV 85.8 fL (80.0 - 100.0) 10/23/2023 10:17 MCH 27.7 pg (27.0 - 34.0) 10/23/2023 10:17 MCHC 32.3 gm/dL (31.4 - 36.0) 10/23/2023 10:17 RDW 14.2 % (10.9 - 14.2) 10/23/2023 10:17 Platelet 340.0 E9/L (150.0 - 500.0) 10/23/2023 10:17 MPV 8.2 fL (6.4 - 10.8) 10/23/2023 10:17 Neutro Auto 58.4 % (36.0 - 75.0) 10/23/2023 10:17 Lymph Auto 30.7 % (14.0 - 50.0) 10/23/2023 10:17 Humphreys Auto 8.1 % (4.0 - 14.0) 10/23/2023 10:17 Eos Auto 2.2 % (0.0 - 8.0) 10/23/2023 10:17 Basophil Auto 0.6 % (0.0 - 2.0) 10/23/2023 10:17 Neutro Absolute 3.5 E9/L (2.0 - 7.5) 10/23/2023 10:17 Lymph Absolute 1.8 E9/L (1.0 - 4.0) 10/23/2023 10:17 Humphreys Absolute 0.5 E9/L (0.2 - 1.0) 10/23/2023 10:17 Eos Absolute 0.1 E9/L (0.0 - 0.5) 10/23/2023 10:17 Basophil Absolute 0.0 E9/L (0.0 - 0.2) 10/23/2023 10:17 Glucose Lvl 128 mg/dL (55 - 199) 10/23/2023 10:17 BUN 20 mg/dL (5 - 21) 10/23/2023 10:17 Creatinine 0.7 mg/dL (0.5 - 1.3) 10/23/2023 10:17 eGFR 85 mL/min/1.73 m2 (>=59 - ) 10/23/2023 10:17 BUN/Creat Ratio ((H)) 29 (10 - 20) 10/23/2023 10:17 Sodium Lvl 140 mmol/L (135 - 145) 10/23/2023 10:17 Potassium Lvl 3.8 mmol/L (3.5 - 5.3) 10/23/2023 10:17 Chloride 101 mmol/L (101 - 111) 10/23/2023 10:17 CO2 ((H)) 33 mmol/L (21 - 31) 10/23/2023 10:17 AGAP 10 mEq/L (6 - 16) 10/23/2023 10:17 Calcium Lvl 9.6 mg/dL (8.9 - 11.1) 10/23/2023 10:17 Alk Phos 69 Int._Unit/L (21 - 98) 10/23/2023 10:17 ALT 18 Int._Unit/L (6 - 46) 10/23/2023 10:17 AST 23 Int._Unit/L (5 - 43) 10/23/2023 10:17 Total Protein 7.0 gm/dL (6.0 - 7.8) 10/23/2023 10:17 Albumin Lvl 4.3 gm/dL (3.3 - 5.0) 10/23/2023 10:17 Globulin 2.7 gm/dL (1.4 - 4.0) 10/23/2023 10:17 A/G Ratio 1.6 (1.1 - 2.2) 10/23/2023 10:17 Bili Total 0.5 mg/dL (0.0 - 1.1) 10/23/2023 10:17 Iron 67 mcg/dL (35 - 153) 10/23/2023 10:17 Chol 195 mg/dL (120 - 200) 10/23/2023 10:17 Trig 87 mg/dL ( - <=149) 10/23/2023 10:17 HDL 73 mg/dL 10/23/2023 10:17 LDL Direct 105 mg/dL ( - <=129) 10/23/2023 10:17 VLDL 17 mg/dL (7 - 40) 10/23/2023 10:17 TSH 2.53 mcIU/mL (0.34 - 5.60) Normal [facility] Ambulatory Visit Summaryon 0 10-23-2023 Ambulatory Visit Summary Ambulatory Visit Summary SURAJ HUYNH :1940 Visit Date:10/23/2023 Ambulatory Visit Instructions Your Diagnosis Former smoker Wellness examination Hyperlipidemia Iron deficiency anemia Your Care Team Attending Physician - Winter Noriega Primary Care Physician - Winter Noriega This Is Your Medications List Non-Formulary Medication (Misc Medication) Oxygen (Oxygen - for Home) albuterol (Ventolin HFA 90 mcg/inh Aerosol-Adpt) alendronate (alendronate 35 mg Tab) atorvastatin (atorvastatin 10 mg Tab) diphenhydrAMINE (Allergy) hydrochlorothiazide (hydrochlorothiazide 12.5 mg Cap) multivitamin (B-Complex with B-12 oral tablet) multivitamin with minerals (One A Day Women's Complete) predniSONE (predniSONE 10 mg Tab) Procedures Performed Biopsy of breast, Colonoscopy, IH - Inguinal hernia, LILLIAN BSO - Total abdominal hysterectomy and bilateral salpingo-oophorectomy, Tonsillectomy and adenoidectomy. Discharge Vitals Temperature (Temporal Artery) 37.2 ?C Heart Rate (Peripheral) 60 Respiratory Rate 18 Blood Pressure 116/78 Height 164.5 cm Height 65 in Weight 70.2 kg Weight 154.44 lb BMI 25.94 What to do next Scheduled Follow-Up Appointments 2023 11:00 AM EDT Where: [place] [id number]- Medications What How Much When Instructions New predniSONE (predniSONE 10 mg Tab) 0 Refill(s) Unchanged albuterol (Ventolin HFA 90 mcg/ inh Aerosol-Adpt) See instructions 1-2 puffs inhaled 4 times a day when needed Unchanged alendronate (alendronate 35 mg Tab) 1 Tablets By Mouth Every 7 days Unchanged atorvastatin (atorvastatin 10 mg Tab) 1 Tablets By Mouth At bedtime Unchanged diphenhydrAMINE (Allergy) Unchanged hydrochlorothiazide (hydrochlorothiazide 12.5 mg Cap) 1 Capsules By Mouth Every day Unchanged multivitamin (B-Complex with B-12 oral tablet) 1 Tablets By Mouth Every day Unchanged multivitamin with minerals (One A Day Women's Complete) Unchanged Non-Formulary Medication (Misc Medication) collagen Every day Unchanged Oxygen (Oxygen - for Home) 2 Liter/minute Every day Oxygen - At HS Allergies aspirin (Unknown) azithromycin (Unknown) Problems Ongoing - Any problem that you are currently receiving treatment for. 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 Macular degeneration, wet Patient Survey You may receive a survey via text or e-mail asking about your office visit. Please share your experience with us by completing your survey. We appreciate your feedback and thank you for choosing us for your care. Normal [facility] CBC w/ Auto Diffon 4 Basophils/100 WBC (Bld) 0.6 % Normal 0.0-2.0 [facility] Comment on above: Performed By: #### 2 [id number] #### [facility] [address] [place] [address] Basophils/Leukocytes Auto (Bld) [Pure # fraction] 0.0 E9/L Normal 0.0-0.2 [facility] Comment on above: Performed By: #### 2 [id number] #### [facility] [address] [place] [address] Eosinophils (Bld) [#/Vol] 0.1 E9/L Normal 0.0-0.5 [facility] Comment on above: Performed By: #### 2 [id number] #### [facility] [address] [place] [address] Eosinophils/100 WBC (Bld) 2.2 % Normal 0.0-8.0 [facility] Comment on above: Performed By: #### 2 [id number] #### [facility] [address] [place] [address] Erythrocyte distribution width (RBC) [Ratio] 14.2 % Normal 10.9-14.2 [facility] Comment on above: Performed By: #### 2 [id number] #### [facility] [address] [place] [address] Hematocrit (Bld) [Volume fraction] 38.2 % Normal 34.0-46.0 [facility] Comment on above: Performed By: #### 2 [id number] #### [facility] [address] [place] [address] Hemoglobin (Bld) [Mass/Vol] 12.3 g/dL Normal 12.0-16.0 [facility] Comment on above: Performed By: #### 2 [id number] #### [facility] [address] [place] [address] Lymphocytes (Bld) [#/Vol] 1.8 E9/L Normal 1.0-4.0 [facility] Comment on above: Performed By: #### 2 [id number] #### [facility] [address] [place] [address] Lymphocytes/100 WBC (Bld) 30.7 % Normal 14.0-50.0 [facility] Comment on above: Performed By: #### 2 [id number] #### [facility] [address] [place] [address] MCH (RBC) [Entitic mass] 27.7 pg Normal 27.0-34.0 [facility] Comment on above: Performed By: #### 2 [id number] #### [facility] [address] [place] [address] MCHC (RBC) [Mass/Vol] 32.3 g/dL Normal 31.4-36.0 [facility] Comment on above: Performed By: #### 2 [id number] #### [facility] [address] [place] [address] MCV (RBC) [Entitic vol] 85.8 fL Normal 80.0-100.0 [facility] Comment on above: Performed By: #### 2 [id number] #### [facility] [address] [place] [address] Monocytes (Bld) [#/Vol] 0.5 E9/L Normal 0.2-1.0 [facility] Comment on above: Performed By: #### 2 [id number] #### [facility] [address] [place] [address] Neutrophils (Bld) [#/Vol] 3.5 E9/L Normal 2.0-7.5 [facility] Comment on above: Performed By: #### 2 [id number] #### [facility] [address] [place] [address] Neutrophils/100 WBC (Bld) 58.4 % Normal 36.0-75.0 [facility] Comment on above: Performed By: #### 2 [id number] #### [facility] [address] [place] [address] Platelet 340.0 E9/L Normal 150.0-500.0 [facility] Comment on above: Performed By: #### 2 [id number] #### [facility] [address] [place] [address] Platelet mean volume (Bld) [Entitic vol] 8.2 fL Normal 6.4-10.8 [facility] Comment on above: Performed By: #### 2 [id number] #### [facility] [address] [place] [address] RBC (Bld) [#/Vol] 4.5 E12/L Normal 4.3-5.9 [facility] Comment on above: Performed By: #### 2 [id number] #### [facility] [address] [place] [address] WBC corrected for nucl RBC Auto (Bld) [#/Vol] 6.0 E9/L Normal 4.0-11.0 [facility] Comment on above: Performed By: #### 2 [id number] #### [facility] [address] [place] [address] CHEMISTRYOrdered By: SYSTEM SYSTEM on 10-23-2023 Albumin [Mass/Vol] 4.3 g/dL Normal 3.3 - 5.0 gm/dL [facility] Albumin/Globulin [Mass ratio] 1.6 {ratio} Normal 1.1 - 2.2 [facility] ALP [Catalytic activity/Vol] 69 [iU]/d Normal 21 - 98 Int._Unit/L [facility] ALT No additional P-5'-P [Catalytic activity/Vol] 18 [iU]/d Normal 6 - 46 Int._Unit/L [facility] Anion gap [Moles/Vol] 10 mmol/L Normal 6 - 16 mEq/L [facility] AST [Catalytic activity/Vol] 23 [iU]/d Normal 5 - 43 Int._Unit/L [facility] Bilirubin [Mass/Vol] 0.5 mg/dL Normal 0.0 - 1 .1 mg/dL [facility] Calcium [Mass/Vol] 9.6 mg/dL Normal 8.9 - 11. 1 mg/dL [facility] Chloride [Moles/Vol] 101 mmol/L Normal 101 - 1 11 mmol/L [facility] Cholesterol [Mass/Vol] 195 mg/dL Normal 120 - 200 mg/dL [facility] Cholesterol in HDL [Mass/Vol] 73 mg/dL Invalid Interpretation Code [facility] Comment on above: Result Comment: '>= 60 LOW RISK' '<= 40 HIGH RISK' Cholesterol in LDL [Mass/Vol] 105 mg/dL Normal <=129mg/dL [facility] Cholesterol in VLDL [Mass/Vol] 17 mg/dL Normal 7 - 40 mg/dL [facility] CO2 [Moles/Vol] 33 mmol/L High 21 - 31 mmol/L [facility] Creatinine [Mass/Vol] 0.7 mg/dL Normal 0.5 - 1.3 mg/dL [facility] eGFR 85 mL/min/1.73 m2 Normal >=59mL/min /1. 73 m2 [facility] Globulin (S) [Mass/Vol] 2.7 g/dL Normal 1.4 - 4.0 gm/dL [facility] Glucose [Mass/Vol] 128 mg/dL Normal 55 - 199 mg/dL [facility] Iron [Mass/Vol] 67 ug/dL Normal 35 - 153 mcg/dL [facility] Potassium [Moles/Vol] 3.8 mmol/L Normal 3.5 - 5.3 mmol/L [facility] Protein [Mass/Vol] 7.0 g/dL Normal 6.0 - 7.8 gm/dL [facility] Sodium [Moles/Vol] 140 mmol/L Normal 135 - 145 mmol/L [facility] Triglyceride [Mass/Vol] 87 mg/dL Normal <=149mg/dL [facility] TSH Qn 2.53 m[IU]/L Normal 0.34 - 5.60 mcIU/mL [facility] Urea nitrogen [Mass/Vol] 20 mg/dL Normal 5 - 21 mg/dL [facility] Urea nitrogen/Creatinine [Mass ratio] 29 mg/mg High 10 - 20 [facility] CMPon 10-23-2023 Albumin [Mass/Vol] 4.3 g/dL Normal 3.3-5.0 [facility] Comment on above: Performed By: #### 2 [id number] #### [facility] [address] [place] [address] Albumin/Globulin (S) [Mass conc ratio] 1.6 Normal 1.1-2.2 [facility] Comment on above: Performed By: #### 2 [id number] #### [facility] [address] [place] [address] ALP [Catalytic activity/Vol] 69 Int._Unit/L Normal 21-98 [facility] Comment on above: Performed By: #### 2 [id number] #### [facility] [address] [place] [address] ALT No additional P-5'-P [Catalytic activity/Vol] 18 Int._Unit/L Normal 6-46 [facility] Comment on above: Performed By: #### 2 [id number] #### [facility] [address] [place] [address] Anion gap [Moles/Vol] 10 mmol/L Normal 6-16 [facility] Comment on above: Performed By: #### 2 [id number] #### [facility] [address] [place] [address] AST [Catalytic activity/Vol] 23 Int._Unit/L Normal 5-43 [facility] Comment on above: Performed By: #### 2 [id number] #### [facility] [address] [place] [address] Bilirubin [Mass/Vol] 0.5 mg/dL Normal 0.0-1.1 [facility] Comment on above: Performed By: #### 2 [id number] #### [facility] [address] [place] [address] Calcium [Mass/Vol] 9.6 mg/dL Normal 8.9-11.1 [facility] Comment on above: Performed By: #### 2 [id number] #### [facility] [address] [place] [address] Chloride [Moles/Vol] 101 mmol/L Normal 101-111 [facility] Comment on above: Performed By: #### 2 [id number] #### [facility] [address] [place] [address] CO2 [Moles/Vol] 33 mmol/L High 21-31 [facility] Comment on above: Performed By: #### 2 [id number] #### [facility] [address] [place] [address] Creatinine [Mass/Vol] 0.7 mg/dL Normal 0.5-1.3 [facility] Comment on above: Performed By: #### 2 [id number] #### [facility] [address] [place] [address] Globulin (S) [Mass/Vol] 2.7 g/dL Normal 1.4-4.0 [facility] Comment on above: Performed By: #### 2 [id number] #### [facility] [address] [place] [address] Glucose [Mass/Vol] 128 mg/dL Normal 55-199 [facility] Comment on above: Performed By: #### 2 [id number] #### [facility] [address] [place] [address] Potassium [Moles/Vol] 3.8 mmol/L Normal 3.5-5.3 [facility] Comment on above: Performed By: #### 2 [id number] #### [facility] [address] [place] [address] Protein [Mass/Vol] 7.0 g/dL Normal 6.0-7.8 [facility] Comment on above: Performed By: #### 2 [id number] #### [facility] [address] [place] [address] Sodium [Moles/Vol] 140 mmol/L Normal 135-145 [facility] Comment on above: Performed By: #### 2 [id number] #### [facility] [address] [place] [address] Urea nitrogen [Mass/Vol] 20 mg/dL Normal 5-21 [facility] Comment on above: Performed By: #### 2 [id number] #### [facility] [address] [place] [address] Urea nitrogen/Creatinine [Mass ratio] 29 No Units High 10-20 [facility] Comment on above: Performed By: #### 2 [id number] #### [facility] [address] [place] [address] Family Medicine Office/Clini c Noteon 10-23-2023 Family Medicine Office/Clinic Note Family Medicine Office/Clinic Note HPI Staff Suraj is a 82 year old female presenting with Onset: Location: both legs pain Duration: Characteristics:_ Aggravated by: Relieved by: Timing:_ Associated Symptoms:_ wants to know when she had last Pneumonia shot, When she can have a bone scan.. She doesn't remember when the last one was History of Present Illness pt presents today for wellness physical. Review of Systems PHQ Score Initial Depression Screen Score: 0 SCORE Physical Exam Vitals & Measurements T: 37.2 ?C(Temporal Artery) HR: 60(Peripheral) RR: 18 BP: 116/78 SpO2: 96% HT: 65 in HT: 164.5 cm WT: 70.2 kg WT: 154.44 lb BMI: 25.94 General: alert, no acute distress ENMT: oral mucosa moist, no pharyngeal erythema or exudate Cardiovascular: regular rate and rhythm, normal peripheral perfusion Respiratory: Lungs CTA, respirations non labored Extremities: no deformity, no trauma Neurological: oriented x 4, LOC appropriate for age, CN II-XII intact, motor strength equal & normal bilaterally, speech normal Assessment/Plan 1. Wellness examination (Z00.00: Encounter for general adult medical examination without abnormal findings) pt presents for wellness physical. pt is doing well. will check labs today. denies needs for refills at this time. has many questions about her bone density test. all questions answered. RTC as needed Ordered: CBC w/ Auto Diff Comprehensive Metabolic Panel Est Preventative 65+ years 63596 Iron Level Lipid Panel Thyroid Stimulating Hormone 2. Hyperlipidemia (E78.5: Hyperlipidemia, unspecified) lipid panel drawn in office Ordered: CBC w/ Auto Diff Comprehensive Metabolic Panel Est Preventative 65+ years 57723 Iron Level Lipid Panel Thyroid Stimulating Hormone 3. Iron deficiency anemia (D50.9: Iron deficiency anemia, unspecified) iron drawn Ordered: CBC w/ Auto Diff Comprehensive Metabolic Panel Est Preventative 65+ years 35659 Iron Level Lipid Panel Thyroid Stimulating Hormone 4. Osteopenia (M85.80: Other specified disorders of bone density and structure, unspecified site) pt is questioning if she is due for a dexa scan. informed her she is not due for one next summer Ordered: Est Preventative 65+ years 12532 5. Former smoker (Z87.891: Personal history of nicotine dependence) continue not smoking Ordered: Body Mass Index (BMI) documented 3008F CBC w/ Auto Diff Comprehensive Metabolic Panel Current tobacco non-user 1036F Depression Screening Negative 3352F Discharge medications reconciled with current medications in outpatient record 1111F Est Preventative 65+ years 28489 Influenza immunization status assessed 1030F Iron Level Lipid Panel Medication list documented in medical record 1159F Most recent diastolic blood pressure 80-89 mm Hg 3079F Patient screen for fall risk: no falls in last year or 1 fall with no injury in last year 1101F Systolic BP <130 mm Hg (Most Recent) 3074F Thyroid Stimulating Hormone Follow-up No qualifying data available Problem List/Past Medical History Ongoing Asthma COPD (chronic obstructive pulmonary disease) Exudative age-related macular degeneration, right eye, with inactive choroidal neovascularization Glaucoma of both eyes Hyperlipidemia Hypoxia Impingement of shoulder 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 Medications alendronate 35 mg Tab, 35 mg= 1 tab(s), Oral, q7day, 3 refills Allergy atorvastatin 10 mg Tab, 10 mg= 1 tab(s), Oral, Bedtime B-Complex with B-12 oral tablet, 1 tab(s), Oral, Daily hydrochlorothiazide 12.5 mg Cap, 12.5 mg= 1 cap(s), Oral, Daily Misc Medication, collagen, Daily One A Day Women's Complete Oxygen - for Home, 2 L/min, Daily predniSONE 10 mg Tab Ventolin HFA 90 mcg/inh Aerosol-Adpt, See Instructions Allergies aspirin (Unknown) azithromycin (Unknown) Social History Alcohol Wine, 1-2 times per year, Household alcohol concerns: No., 2022 Tobacco - Low Risk, 10/23/2023 Former smoker, quit more than 30 days ago, quit 1991 Tobacco Use:. Never Smokeless Tobacco Use:. Cigarettes, Household tobacco concerns: No., 10/23/2023 Family History Dementia: Mother. Immunizations Vaccine Date Status SARS-CoV-2 (COVID-19) mRNA-1273 vaccine 05/31/2020 Recorded SARS-CoV-2 (COVID-19) mRNA-1273 vaccine 05/02/2020 Recorded pneumococcal 23-valent vaccine 05/16/2015 Recorded Normal [facility] Comment on above: Result Comment: Elec tronically Signed By: Alejandro CONWAY, Winter Da Silva\.br\Date and Time Signed: 10/23/23 09:59 EDT HEMATOLOGYOrdered By: SYSTEM SYSTEM on 10-23-2023 Basophils/100 WBC (Bld) 0.6 % Normal 0.0 - 2.0 % Remisol Heme Basophils/Leukocytes Auto (Bld) [Pure # fraction] 0.0 E9/L Normal 0.0 - 0.2 E9/L Remisol Heme Eosinophils (Bld) [#/Vol] 0.1 E9/L Normal 0.0 - 0.5 E9/L Remisol Heme Eosinophils/100 WBC (Bld) 2.2 % Normal 0.0 - 8.0 % Remisol Heme Erythrocyte distribution width (RBC) [Ratio] 14.2 % Normal 10.9 - 14.2 % Remisol Heme Hematocrit (Bld) [Volume fraction] 38.2 % Normal 34.0 - 46.0 % Remisol Heme Hemoglobin (Bld) [Mass/Vol] 12.3 g/dL Normal 12.0 - 16.0 gm/dL Remisol Heme Lymphocytes (Bld) [#/Vol] 1.8 E9/L Normal 1.0 - 4.0 E9/L Remisol Heme Lymphocytes/100 WBC (Bld) 30.7 % Normal 14.0 - 50.0 % Remisol Heme MCH (RBC) [Entitic mass] 27.7 pg Normal 27.0 - 34.0 pg Remisol Heme MCHC (RBC) [Mass/Vol] 32.3 g/dL Normal 31.4 - 36.0 gm/dL Remisol Heme MCV (RBC) [Entitic vol] 85.8 fL Normal 80.0 - 100.0 fL Remisol Heme Monocytes (Bld) [#/Vol] 0.5 E9/L Normal 0.2 - 1.0 E9/L Remisol Heme Monocytes/100 WBC (Bld) 8.1 % Normal 4.0 - 14.0 % Remisol Heme Neutrophils (Bld) [#/Vol] 3.5 E9/L Normal 2.0 - 7.5 E9/L Remisol Heme Neutrophils/100 WBC (Bld) 58.4 % Normal 36.0 - 75.0 % Remisol Heme Platelet 340.0 E9/L Normal 150.0 - 500.0 E9/L Remisol Heme Platelet mean volume (Bld) [Entitic vol] 8.2 fL Normal 6.4 - 10.8 fL Remisol Heme RBC (Bld) [#/Vol] 4.5 E12/L Normal 4.3 - 5.9 E12/L Remisol Heme WBC corrected for nucl RBC Auto (Bld) [#/Vol] 6.0 E9/L Normal 4.0 - 11.0 E9/L Remisol Heme Ironon 10-23-2023 Iron [Mass/Vol] 67 microgram/dL Normal 35-153 [facility] Comment on above: Performed By: #### 2 [id number] #### [facility] [address] [place] [address] Lipid Panelon 10-23-2023 Cholesterol [Mass/Vol] 195 mg/dL Normal 120-200 [facility] Comment on above: Performed By: #### 2 [id number] #### [facility] [address] [place] [address] Cholesterol in HDL [Mass/Vol] 73 mg/dL Invalid Interpretation Code [facility] Comment on above: Result Comment: '>= 60 LOW RISK' '<= 40 HIGH RISK' Performed By: #### 2 [id number] #### [facility] [address] [place] [address] Cholesterol in LDL [Mass/Vol] 105 mg/dL Normal <=129 [facility] Comment on above: Performed By: #### 2 [id number] #### [facility] [address] [place] [address] Cholesterol in VLDL [Mass/Vol] 17 mg/dL Normal 7-40 [facility] Comment on above: Performed By: #### 2 [id number] #### [facility] [address] [place] [address] Triglyceride [Mass/Vol] 87 mg/dL Normal <=149 [facility] Comment on above: Performed By: #### 2 [id number] #### [facility] [address] [place] [address] TSHon 10-23-2023 TSH Qn 2.53 m[IU]/L Normal 0.34-5.60 [facility] Comment on above: Performed By: #### 2 [id number] #### [facility] [address] [place] [address] eGFRon 10-23-2023 eGFR 85 mL/min/1.73 m2 Normal >=59 [facility] Comment on above: Order Comment: Order added by Discern Expert. Performed By: #### 1 [id number] #### [facility] [address] [place] [address] Consultation Noteon 08-30-19 24 Consultation Note [id number] 0TIFF Normal [facility] Consultation Noteon 06-24-19 24 Consultation Note [id number] 0TIFF Normal [facility] Consultation Noteon 06-21-19 24 Consultation Note [id number] 0TIFF Normal [facility] Office Visiton 01-18-2023 Follow-up visit [id number] Suraj Huynh 1940 F Date Provider Department Center 01/18/2023 RUDY [place] [facility] Family History Family history unknown: Yes Level of Service:35870 DC OFFICE/OUTPATIENT ESTABLISHED LOW MDM 20-29 MIN (GC) Reason for Visit and Comments: Post-op [483] Normal [facility] Outside Mammographyon 2022 Outside Mammography [id number]#1.00 CD:127 Normal [facility] Office Visiton 10-12-2022 Follow-up visit [id number] Suraj Huynh 1940 F Date Provider Department Center 10/12/2022 RUDY MCMULLEN MP ORTHO [facility] Family History Family history unknown: Yes Level of Service:16586 DC POSTOP FOLLOW UP VISIT RELATED TO ORIGINAL PX (GC) Reason for Visit and Comments: Post-op [483] [facility] 10-08-2022 36 Hi there. My name is Edda and I work for [employer] at the [facility]. This patient, Suraj Huynh, was scheduled with us today for a hospital follow up. I wasn't able to find anything cardiac related in her chart. I called her to see if she knew why she was scheduled with us. She told me she thought it was because someone saw something during my surgery . I'm assuming she means something on telemetry while under anesthesia. I couldn't find any notes about this, or telemetry strips. Trying to figure out if this apt made by the discharge staff at [facility] was a mistake?? But Suraj told me she already sees cardiology in [place]. If someone did see something concerning, please have your staff inform that office. Or contact me here at the [facility] at [phone]. Thanks for your help in trying to figure this out for the patient. :) [facility] 10-04-2022 36 Ora scheduled this patient with you on Sunday 10/08 for follow up [facility] . I tried to do some digging and I can't find any cardiac reason why we're seeing her. I also can't find any recent cardiac testing at [facility]. Do you know why we're seeing her? Is this a mistake? I'd ask Ora but she's on vacation. Thanks! [facility] 36on 10-01-2022 36 Refill narcotics postop x 1 additional week, sent to pharmacy [facility] 36 Patients daughter in law Amanda Huynh called following up on patients OT and DMEs that she has not heard anything regarding either of these. She stated she does not know why the hospital discharged her home as she cannot care for herself. I stated that if she feels that she cannot care for Ms Huynh to take her to the nearest ER. She stated that it was too late for that . I stated I would look into the [facility] and DME situation and call her back. I reached out to [employer] in [place] they stated that Medicare will not cover the shower chair or commode and that the shower chair would cost 40-60 dollars and the commode would cost 125 dollars. I updated Amanda on this stating Medicare does not cover these items and updated her on how much it would cost from the DME shop. I looked these items up on [employer] and updated her that they are 30-40 dollars a piece. I spoke to [employer] [facility] company regarding when the start of care would be for OT. They stated they had just received the order and it is not processed over the weekend. I asked if they knew when the start date would be and she could not give me an exact date just sometime this week. I updated Amanda on this as well, gave her their number if she had any questions and instructed her if she did not hear anything by Saturday to give us a call and we would be happy to assist. She had no other questions or concerns. [facility] Telephoneon 10-01-2022 Telephone [id number] Suraj Huynh 1940 F Date Provider Department Center 10/01/2022 Irineo-NATALIIA JAEGER MP [facility] Family History Family history unknown: Yes Reason for Visit and Comments: Med Refill [267882] - Pt called requesting an refill on her oxyCODONE. [facility] 36on 09-28-2022 36 The patient's daught er called me back and explained her concerns about how to complete ADLs with the patient (specifically showering and getting to the toilet). I explained the role of OT to the daughter and she was interested in their help. I called [employer] and left a voicemail with the patient's career services coordinator to have OT eval the patient ROSANA. Patient was seen by PT today. I also offered a bedside commode and the daughter felt that it would be helpful. Shower chair script and bedside commode script were sent to the [facility] in [place]. [facility] 36 I received a voice message forwarded the social work department to me from the patient's daughter regarding her concerns about her mothers discharge to home. I called and left a voicemail with the daughter with my contact information so we could discuss her concerns. [facility] 36 I was unable to complete a follow up call. I left the patient a voicemail with my contact information. [facility] Erroneous Telephone Encounte kb 09-28-2022 Erroneous Telephone Encounter [id number] Suraj Huynh 1940 F Date Provider Department [place] 09/28/2022 874-JOON PALAFOX [facility]THO [facility]THO Family History Family history unknown: Yes Reason for Visit and Comments: Post-op Problem [785512] Error (VOID this visit) [77] [facility] Social Workon 09-28-2022 Social Work [id number] Suraj Huynh 1940 F Date Provider Department [place] 09/28/2022 214COSME JIMENEZ [facility] Medical C Family History Family history unknown: Yes [facility] 30on 09-27-2022 30 Problem: Pain - Adul t Goal: Verbalizes/displays adequate comfort level or baseline comfort level Outcome: Progressing Problem: Safety - Adult Goal: Free from fall injury Outcome: Progressing Problem: Discharge Planning Goal: Discharge to home or other facility with appropriate resources Outcome: Progressing Problem: Chronic Conditions and Co-morbidities Goal: Patient's chronic conditions and co-morbidity symptoms are monitored and maintained or improved Outcome: Progressing Problem: Musculoskeletal - Adult Goal: Return mobility to safest level of function Outcome: Progressing Goal: Maintain proper alignment of affected body part Outcome: Progressing Goal: Return ADL status to a safe level of function Outcome: Progressing The patient is Moderately Stable - Low risk of patient condition declining or worsening The patient's goals for the shift include go home The clinical goals for the shift include VSS Normal [facility] BASIC METABOLIC PANELon 07-0 Anion gap [Moles/Vol] 10 mmol/L Normal 7-20 [facility] Comment on above: Performed By: #### L AB15 ####[facility] [place] [address] Calcium [Mass/Vol] 9.1 mg/dL Normal 8.6-10.3 [facility] Comment on above: Performed By: #### L AB15 ####[facility] ([facility])[address] [place] [address] Chloride [Moles/Vol] 99 mmol/L Normal 98-107 [facility] Comment on above: Performed By: #### L AB15 ####[facility] [place] [address] CO2 [Moles/Vol] 31 mmol/L Normal 21-31 [facility] Comment on above: Performed By: #### L AB15 ####[facility] [place] [address] Creatinine [Mass/Vol] 0.61 mg/dL Normal 0.60-1.20 [facility] Comment on above: Performed By: #### L AB15 ####[facility] ([facility])[address] [place] [address] GLOMERULAR FILTRATION RATE ML/MIN/1.73 SQ M.PREDICTED 88.7 mL/min/1.73m*2 Normal >60.0 [facility] Comment on above: Result Comment: The [facility]???s estimated glomerular filtration rate (eGFR) will no longer include consideration of race in its calculation. The National Kidney Foundation???s eGFR Task Force developed new recommendations for the estimation of the glomerular filtration rate in the [place] They recommend immediate implementation of the new equation refit without the race variable in all laboratories because the calculation does not include race. In addition to not including race in the calculation and reporting, it included diversity in its development, and has acceptable performance characteristics and potential consequences that do not disproportionately affect any one group of individuals. Performed By: #### L AB15 ####[facility] ([facility])[address] [place] [address] Glucose [Mass/Vol] 133 mg/dL High 70-100 [facility] Comment on above: Performed By: #### L AB15 ####[facility] ([facility])[address] [place] [address] Potassium [Moles/Vol] 3.5 mmol/L Normal 3.5-5.1 [facility] Comment on above: Performed By: #### L AB15 ####[facility] ([facility])[address] [place] [address] Sodium [Moles/Vol] 136 mmol/L Normal 136-145 [facility] Comment on above: Performed By: #### L AB15 ####[facility] ([facility])[address] [place] [address] Urea nitrogen [Mass/Vol] 17 mg/dL Normal 7-25 [facility] Comment on above: Performed By: #### L AB15 ####[facility] ([facility])[address] [place] [address] UREA NITROGEN/CREATININE (MASS RATIO) IN SER/PLAS 27.9 Normal [facility] Comment on above: Performed By: #### L AB15 ####[facility] ([facility])[address] [place] [address] CBCon 09-27-2022 Erythrocyte distribution width (RBC) [Ratio] 13.6 % Normal 11.5-15.0 [facility] Comment on above: Performed By: #### L [id number] ####[facility] ([facility])[address] [place] [address] ERYTHROCYTE MEAN CORPUSCULAR HEMOGLOBIN CONCENTRATION (G/DL) BY AUTOMATED 30.7 g/dL Low 32.0-35.0 [facility] Comment on above: Performed By: #### L [id number] ####[facility] ([facility])[address] [place] [address] Hematocrit (Bld) [Volume fraction] 33.5 % Low 36.0-48.0 [facility] Comment on above: Performed By: #### L [id number] ####[facility] ([facility])[address] [place] [address] Hemoglobin (Bld) [Mass/Vol] 10.3 g/dL Low 12.0-15.0 [facility] Comment on above: Performed By: #### L [id number] ####[facility] ([facility])[address] [place] [address] MCH (RBC) [Entitic mass] 27.2 pg Normal 27.0-33.0 [facility] Comment on above: Performed By: #### L [id number] ####[facility] ([facility])[address] [place], [place] [address] MCV (RBC) [Entitic vol] 88.4 fL Normal 82.0-98.0 [facility] Comment on above: Performed By: #### L [id number] ####[facility] ([facility])[address] [place] [address] PLATELETS (10*3/UL) IN BLOOD AUTOMATED COUNT 286 10*3/uL Normal 150-400 [facility] Comment on above: Performed By: #### L [id number] ####[facility] ([facility])[address] [place] [address] RBC (Bld) [#/Vol] 3.79 10*6/uL Low 3.80-5.00 [facility] Comment on above: Performed By: #### L [id number] ####[facility] ([facility])[address] [place] [address] WBC (Bld) [#/Vol] 9.67 10*3/uL Normal 4.00-10.60 [facility] Comment on above: Performed By: #### L [id number] ####[facility] ([facility])[address] [place] [address] DSon 09-27-2022 DS -- Attestation signed by Rudy Richardson MD at 09/27/2022 2:04 PM I did not personally examine the patient. I discussed the case with the resident/fellow Dr Jani Ceja MD. Teaching Physician's Revisions: NONE Admission Admitted 09/26/2022 for Primary osteoarthritis of right hip Discharge Diagnosis Osteoarthritis of hip Discharge Disposition Home-Health Care [facility] Discharge Medications Your medication list START taking these medications Instructions Last Dose Given Next Dose Due cephalexin 500 mg capsule Commonly known as: Keflex Take 1 capsule (500 mg) by mouth in the morning, at noon, in the evening, and at bedtime for 5 days. enoxaparin 40 mg/0.4 mL syringe Commonly known as: Lovenox Inject 0.4 mL (40 mg) under the skin in the morning for 14 days. oxyCODONE-acetaminophe n 5-325 mg tablet Commonly known as: Percocet Take 1 tablet by mouth every 6 (six) hours if needed for severe pain (8-10 pain score) for up to 5 days. CONTINUE taking these medications Instructions Last Dose Given Next Dose Due albuterol 90 mcg/actuation inhaler Allergy Relief (cetirizine) 10 mg tablet Generic drug: cetirizine atorvastatin 10 mg tablet Commonly known as: Lipitor Breo Ellipta 100-25 mcg/dose inhaler Generic drug: fluticasone furoate-vilanteroL dorzolamide-timoloL 22.3-6.8 mg/mL ophthalmic solution Commonly known as: Cosopt hydroCHLOROthiazide 12.5 mg tablet Commonly known as: HYDRODiuril ipratropium-albuteroL 0.5-2.5 mg/3 mL nebulizer solution Commonly known as: Duo-Neb meloxicam 7.5 mg tablet Commonly known as: Mobic Take 1 tablet (7.5 mg) by mouth in the morning. Where to Get Your Medications These medications were sent to [facility] - [place], [place] - [address] [place] [address] [place] [address], [facility] [address] cephalexin 500 mg capsule enoxaparin 40 mg/0.4 mL syringe oxyCODONE-acetaminophe n 5-325 mg tablet Activity Do not drive or drink alcohol while taking narcotic pain medications. No tub baths, swimming, or submerging your incision. Keep clean and dry until your follow-up visit Allergies Aspirin and Azithromycin Hospital Course Patient underwent the above-mentioned procedure, which they tolerated well, and was subsequently admitted to the hospital for routine postoperative monitoring, pain control, IV antibiotics, and evaluation by PT/OT. Hospital courses was otherwise unremarkable and they were discharged in stable condition. Patient will follow-up with Dr. Richardson in the outpatient orthopedic clinic on 10/12. Pertinent Physical Exam At Time of Discharge Please see most recent progress note on day of discharge for physical exam. Lab Results Labs Reviewed BASIC METABOLIC PANEL - Abnormal Result Value Sodium 136 Potassium 3.5 Chloride 99 CO2 31 BUN 17 Creatinine 0.61 Glucose 133 (*) Calcium 9.1 Anion Gap 10 eGFR 88.7 BUN/Creatinine Ratio 27.9 CBC - Abnormal Auto WBC 9.67 RBC 3.79 (*) Hemoglobin 10.3 (*) Hematocrit 33.5 (*) MCV 88.4 MCH 27.2 MCHC 30.7 (*) RDW 13.6 Platelets 286 POCT GLUCOSE METER UNSOLICITED RESULTS - Normal Glucose POC 101 Narrative: Waived Testing in the ED is performed under the ED CLIA certificate #[id number]. Outpatient Follow-Up Future Appointments Date Time Provider Department Center 10/12/2022 1:30 PM Rudy Richardson [place] [facility] [place] Jani Ceja MD Orthopaedic Surgery, PGY-1 Ortho Pager [phone] 09/27/22 10:42 AM I am available via [employer] 6a-6p. May contact the on-call resident with any concerns via the Orthopaedic pager at any time. [facility] NURSNOTEon 09-27-2022 NURSNOTE Patient signed discharge instructions, received medications, paper script for shower chair, and took abductor pillow. Pt and family denies further questions at this time. [facility] 29on 09-26-2022 29 Addendum created 09/26/22 1552 by Alessandra Johnson MD Order list changed, Pharmacy for encounter modified [facility] Anesthesiaon 09-26-2022 Anesthesia [id number] Suraj Huynh 1940 F Date Provider Department Center 09/26/2022 DELVIS COON [facility] OR [place] Medical C Family History Family history unknown: Yes [facility] HPon 09-26-2022 HP H&P reviewed. The patient was examined and there are no changes to the H&P. [facility] NURSNOTEon 09-26-2022 NURSNOTE Report called to Yarely Purvis CUPOLA LINER HELPER [facility] OPNOTEon 09-26-2022 OPNOTE Total Hip Arthroplasty, Posterolateral (R) Operative Note Date: 09/26/2022 Location: [facility] OR Name: Suraj Huynh, : 1940, Diagnosis Pre-op Diagnosis * Primary osteoarthritis of right hip [M16.11] Post-op Diagnosis * Primary osteoarthritis of right hip [M16.11] * Age-related osteoporosis without fracture [M81.8] Procedures Total Hip Arthroplasty, Posterolateral 65430 - DC ARTHRP ACETBLR/PROX FEM PROSTC AGRFT/ALGRFT 01 Right primary posterolateral total hip arthroplasty using Timpson dual mobility implants #2 Superficial and deep complex primary closure for right hip arthrotomy Hardware used: #1 Trident 2 TriTanium cluster hole acetabular shell, size 52 mm, alpha code E #2 MDM liner cementless, Timpson orthopedics, inner diameter 42 mm, alpha code E #3 low-profile exertional screw, 6.5 mm diameter, 30 mm length #4 low-profile hexagonal screw, 6.5 mm diameter, 25 mm length #5 Emigdio oriental orthodox ADM/MDM, X.3 insert for ADM/MDM, 28 mm inner diameter and size 28/48, 42 E #6 Emigdio insignia hip stem standard offset, size 3, neck length 32.5 mm, stem length 101 mm. #7 Biolox delta ceramic V40 femoral head, outer diameter 28 mm, neck length 0 mm. Surgeons * Rudy Richardson - Primary Assistants: #1 Jani Bonner MD resident optic surgery #2 Dashawn medical student year 3 #3 Darci Torres retail administrative assistant. Procedure Summary Anesthesia: General ASA: IV Local infiltrated around the wound in the form of 0.25% Marcaine and 1% lidocaine total of 60 mL. Estimated Blood Loss: 250 mL Total IV Fluids: Please see anesthesia chart mL Drains: * None in log * Implants Type Name Action Serial No. Total Joint TRIDENT 11 TRITANIUM CLUSTERHOLE ACETABULAR SHELL Implanted Total Joint 6.5MM LOW PROFILE HEX SCREW Implanted Total Joint 6.5MM LOW P[ROFILE HEX SCREW Implanted Total Joint MDM LINER-CEMENTLESS Implanted Total Joint INSIGNIA HIP STEM - STANDARD OFFSET Implanted Total Joint X3 INSERT FOR ADM/MDM Implanted Total Joint CERAMIC V40 FEMORAL HEAD Implanted Staff: Pediatric Orthodontist: Margaux Temple Pediatric Orthodontist: Michelle Hernandez RN Scrub Person: Georgia Ruby CST; Deepti Araiza CST Silo Worker: Darci Torres CSA Orientee Scrub: Esther Black Indications: Suraj Huynh is an 81 y.o. female who is having surgery for Primary osteoarthritis of right hip [M16.11]. Patient is a 81-year-old female who is known to have severe degenerative arthritis of the right hip joint along with severe osteoporosis. She is also known to have lumbosacral radiculopathy. Patient has tried nonsurgical treatment in the form of oral pain medications, physical therapy weight loss program and strengthening of the lower extremity which has failed. She has also tried cortisone injection in the hip joint which did not help her long enough. X-rays of the right hip joint show severe degenerative arthritis of the right hip generalized subchondral cyst formation and subchondral sclerosis along with severe osteoporosis. Patient is indicated for right hip arthroplasty. Risk and benefits of all treatment options were discussed at length including surgical nonsurgical. Due to her age as well as her osteoporosis and COPD she has had a normal risk for complications which are but not restricted to bleeding, infection, neurovascular injury, residual pain and stiffness, anesthetic risk, deep vein thrombosis, pulmonary embolism, myocardial infarction, stroke, mortality less than 1%, periprosthetic fractures, iatrogenic fractures, recurrent dislocations, limb length inequality, need for posterior precautions, lifestyle modifications to prevent dislocations, anesthetic risk, were all discussed at length with the patient despite which she wishes to proceed with the surgery. She has signed a consent form site was marked. Details were discussed with the family as well. Patient plans to stay to go to rehab following the procedure since she lives alone. Procedure Details: The patient was seen in the preoperative area. The risks, benefits, complications, treatment options, non-operative alternatives, expected recovery and outcomes were discussed with the patient. The possibilities of reaction to medication, pulmonary aspiration, injury to surrounding structures, bleeding, recurrent infection, the need for additional procedures, failure to diagnose a condition, and creating a complication requiring transfusion or operation were discussed with the patient. The patient concurred with the proposed plan, giving informed consent. The site of surgery was properly noted/marked if necessary per policy. The patient has been actively warmed in preoperative area. Preoperative antibiotics have been ordered and given within 1 hours of incision. Venous thrombosis prophylaxis have been ordered including unilateral sequential compression device and chemical prophylaxis Findings: Severe degenerative a (more content not included)... Normal [facility] POCT GLUCOSE METER UNSOLICIT ED RESULTSon 09-26-2022 Glucose [Mass/Vol] 101 mg/dL Normal 70-105 [facility] Comment on above: Order Comment: Waive d Testing in the ED is performed under the ED CLIA certificate #[id number]. 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 Ms Huynh stated she would like to go to inpatient rehab following her discharge. She would prefer to go to [facility]. I explained the process to her and stated she will be evaluated by physical therapy and they will make their recommendation from there. She stated if the options are between a nursing facility and home she will prefer to go home. Normal [facility] APTTon 09-07-2022 ACTIVATED PARTIAL THROMBOPLASTIN TIME IN PPP BY COAGULATION ASSAY 28.6 Seconds Normal 25.0-35.0 [facility] Comment on above: Result Comment: Clin ical significance of the APTT is questionable in the presence of heparin. Performed By: #### L [id number] ####[facility] ([facility])[address] [place] [address] CBC WITH AUTO DIFFERENTIALon 09-07-2022 Basophils (Bld) [#/Vol] 0.06 10*3/uL Normal 0.00-0.20 [facility] Comment on above: Performed By: #### L [id number] ####[facility] ([facility])[address] [place] [address] Basophils/100 WBC (Bld) 0.7 % Normal 0.0-1.0 [facility] Comment on above: Performed By: #### L [id number] ####[facility] ([facility])[address] [place] [address] Eosinophils (Bld) [#/Vol] 0.84 10*3/uL High 0.00-0.50 [facility] Comment on above: Performed By: #### L [id number] ####[facility] ([facility])[address] [place] [address] Eosinophils/100 WBC (Bld) 10.3 % High 0.0-6.0 [facility] Comment on above: Performed By: #### L [id number] ####[facility] ([facility])[address] [place] [address] Erythrocyte distribution width (RBC) [Ratio] 13.2 % Normal 11.5-15.0 [facility] Comment on above: Performed By: #### L [id number] ####[facility] ([facility])[address] [place] [address] ERYTHROCYTE MEAN CORPUSCULAR HEMOGLOBIN CONCENTRATION (G/DL) BY AUTOMATED 31.1 g/dL Low 32.0-35.0 [facility] Comment on above: Performed By: #### L [id number] ####[facility] ([facility])[address] [place] [address] Hematocrit (Bld) [Volume fraction] 39.2 % Normal 36.0-48.0 [facility] Comment on above: Performed By: #### L [id number] ####[facility] ([facility])[address] [place] [address] Hemoglobin (Bld) [Mass/Vol] 12.2 g/dL Normal 12.0-15.0 [facility] Comment on above: Performed By: #### L [id number] ####[facility] ([facility])[address] [place] [address] Immature granulocytes (Bld) [#/Vol] 0.03 10*3/uL Normal 0.00-0.20 [facility] Comment on above: Performed By: #### L [id number] ####[facility] ([facility])[address] [place] [address] Immature granulocytes/100 WBC (Bld) 0.4 % Normal 0.0-1.0 [facility] Comment on above: Performed By: #### L [id number] ####[facility] ([facility])[address] [place] [address] Lymphocytes (Bld) [#/Vol] 2.51 10*3/uL Normal 1.20-4.00 [facility] Comment on above: Performed By: #### L [id number] ####[facility] ([facility])[address] [place] [address] Lymphocytes/100 WBC (Bld) 30.8 % Normal 20.0-45.0 [facility] Comment on above: Performed By: #### L [id number] ####[facility] ([facility])[address] [place] [address] MCH (RBC) [Entitic mass] 27.1 pg Normal 27.0-33.0 [facility] Comment on above: Performed By: #### L [id number] ####[facility] ([facility])[address] [place] [address] MCV (RBC) [Entitic vol] 87.1 fL Normal 82.0-98.0 [facility] Comment on above: Performed By: #### L [id number] ####[facility] ([facility])[address] [place] [address] Monocytes (Bld) [#/Vol] 0.65 10*3/uL Normal 0.10-1.00 [facility] Comment on above: Performed By: #### L [id number] ####[facility] ([facility])[address] [place] [address] Monocytes/100 WBC (Bld) 8.0 % Normal 5.0-12.0 [facility] Comment on above: Performed By: #### L [id number] ####[facility] ([facility])[address] [place] [address] Neutrophils (Bld) [#/Vol] 4.05 10*3/uL Normal 1.60-7.60 [facility] Comment on above: Performed By: #### L [id number] ####[facility] ([facility])[address] [place] [address] Neutrophils/100 WBC (Bld) 49.8 % Normal 40.0-72.0 [facility] Comment on above: Performed By: #### L [id number] ####[facility] ([facility])[address] [place] [address] NRBC (PER 100 WBCS) BY AUTOMATED COUNT 0.0 % Normal 0 [facility] Comment on above: Performed By: #### L [id number] ####[facility] ([facility])[address] [place] [address] PLATELETS (10*3/UL) IN BLOOD AUTOMATED COUNT 381 10*3/uL Normal 150-400 [facility] Comment on above: Performed By: #### L [id number] ####[facility] ([facility])[address] [place] [address] RBC (Bld) [#/Vol] 4.50 10*6/uL Normal 3.80-5.00 [facility] Comment on above: Performed By: #### L [id number] ####[facility] ([facility])[address] [place] [address] WBC (Bld) [#/Vol] 8.14 10*3/uL Normal 4.00-10.60 [facility] Comment on above: Performed By: #### L [id number] ####[facility] ([facility])[address] [place] [address] COMPREHENSIVE METABOLIC PANE Santos 09-07-2022 Albumin [Mass/Vol] 4.5 g/dL Normal 3.5-5.7 [facility] Comment on above: Performed By: #### L [id number] ####[facility] ([facility])[address] [place] [address] ALP [Catalytic activity/Vol] 86 U/L Normal 34-104 [facility] Comment on above: Performed By: #### L [id number] ####[facility] ([facility])[address] [place] [address] ALT [Catalytic activity/Vol] 23 U/L Normal 7-52 [facility] Comment on above: Performed By: #### L [id number] ####[facility] ([facility])[address] [place] [address] Anion gap [Moles/Vol] 11 mmol/L Normal 7-20 [facility] Comment on above: Performed By: #### L [id number] ####[facility] ([facility])[address] [place] [address] AST [Catalytic activity/Vol] 24 U/L Normal 13-39 [facility] Comment on above: Performed By: #### L [id number] ####[facility] ([facility])[address] [place] [address] Bilirubin [Mass/Vol] 0.4 mg/dL Normal 0.3-1.0 [facility] Comment on above: Performed By: #### L [id number] ####[facility] ([facility])[address] [place] [address] Calcium [Mass/Vol] 9.9 mg/dL Normal 8.6-10.3 [facility] Comment on above: Performed By: #### L [id number] ####[facility] ([facility])[address] [place] [address] Chloride [Moles/Vol] 100 mmol/L Normal 98-107 [facility] Comment on above: Performed By: #### L [id number] ####[facility] ([facility])[address] [place] [address] CO2 [Moles/Vol] 31 mmol/L Normal 21-31 [facility] Comment on above: Performed By: #### L [id number] ####[facility] ([facility])[address] [place] [address] Creatinine [Mass/Vol] 0.70 mg/dL Normal 0.60-1.20 [facility] Comment on above: Performed By: #### L [id number] ####[facility] ([facility])[address] [place] [address] GLOMERULAR FILTRATION RATE ML/MIN/1.73 SQ M.PREDICTED 85.8 mL/min/1.73m*2 Normal >60.0 [facility] Comment on above: Result Comment: The [facility]???s estimated glomerular filtration rate (eGFR) will no longer include consideration of race in its calculation. The National Kidney Foundation???s eGFR Task Force developed new recommendations for the estimation of the glomerular filtration rate in the [place] They recommend immediate implementation of the new equation refit without the race variable in all laboratories because the calculation does not include race. In addition to not including race in the calculation and reporting, it included diversity in its development, and has acceptable performance characteristics and potential consequences that do not disproportionately affect any one group of individuals. Performed By: #### L [id number] ####[facility] ([facility])[address] [place] [address] Glucose [Mass/Vol] 105 mg/dL High 70-100 [facility] Comment on above: Performed By: #### L [id number] ####[facility] ([facility])[address] [place] [address] Potassium [Moles/Vol] 3.7 mmol/L Normal 3.5-5.1 [facility] Comment on above: Performed By: #### L [id number] ####[facility] ([facility])[address] [place] [address] Protein [Mass/Vol] 7.5 g/dL Normal 6.0-8.3 [facility] Comment on above: Performed By: #### L [id number] ####[facility] ([facility])[address] [place] [address] Sodium [Moles/Vol] 138 mmol/L Normal 136-145 [facility] Comment on above: Performed By: #### L [id number] ####[facility] ([facility])[address] [place] [address] Urea nitrogen [Mass/Vol] 19 mg/dL Normal 7-25 [facility] Comment on above: Performed By: #### L [id number] ####[facility] ([facility])[address] [place] [address] UREA NITROGEN/CREATININE (MASS RATIO) IN SER/PLAS 27.1 Normal [facility] Comment on above: Performed By: #### L [id number] ####[facility] ([facility])[address] [place] [address] Follow-Upon 09-07-2022 Follow-Up [id number] Suraj Huynh 1940 F Date Provider Department Center 09/07/2022 AllisonDEVANRUDY SAVAGE MP ORTHO MPORTHO Family History Family history unknown: Yes Level of Service:89847 DC OFFICE/OUTPATIENT ESTABLISHED MOD MDM 30-39 MIN (57) Reason for Visit and Comments: Pain [136] Follow-up [[id number]] Normal [facility] HPon 09-07-2022 Orthopedic Surgery Subjective Pain and Follow-up of the Right Hip 09/07/22 Suraj Huynh is a 81 y.o. female presenting for preoperative visit for right hip replacement surgery. 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 Patient continues to have multiple falls, has pain at night, gets better after she starts moving, if turns leg a certain way it really hurts. She hasn't done therapy recently due to pain and being unable to perform the exercises, but she has done therapy in the past for cardiac reasons. She had an injection to the right greater trochanter which did not help her. Put off surgery due to macular degeneration and was getting injections. She has asthma and copd, she sees a photographer portrait. Wears oxygen at night. Denies heart attacks, strokes, diabetes, kidney issues. Lives at home alone in a small apartment but she is right across the street from her son. She states she does not use a walker or cane at baseline but has a walker for when her hip pain does get super bad. She does state that she broke her foot approximately a year ago. PCP Dr. linda Review of Systems unremarkable aside from what is noted in HPI Review of Systems positive for: Patient History Past Surgical History: Procedure Laterality Date HYSTERECTOMY KNEE SURGERY Bilateral TONSILECTOMY, ADENOIDECTOMY, BILATERAL MYRINGOTOMY AND TUBES Past Medical History: Diagnosis Date Asthma Objective General: Body mass index is 26.43 kg/m???. No acute distress, comfortable Respiratory: Unlabored breathing with normal rate, no cough Cardiovascular: Warm well perfused extremities Psych: Appropriate mood behavior Right Hip: Inspection- no ecchymosis, no edema Tender to palpation over Greater trochanter and deep within the groin Hip ROM: Internal Rotation 0??? External Rotation 25??? Flexion 110??? Positive Trendelenburg lurch noted. Positive antalgia. Positive logroll test, positive Stinchfield sign. Strength: Hip Flexion 5/5 Hip Extension 5/5 Hip Abduction 5/5 Hip Adduction 5/5 Knee Flexion 4/5 Knee Extension 4/5 Sensation: intact over superficial peroneal, deep peroneal and tibial nerve distributions Patient is able to get up out of the chair without any assistance and walk over to the table without significant debility or unsteadiness Walks with antalgia and positive Trendelenburg lurch. Imaging personally reviewed: X-rays obtained today of the right hip multiple views that were taken today were seen by myself and read. Independently which show the patient demonstrate severe joint space narrowing compared to the right side with subchondral sclerosis cystic changes and osteophyte formation, indicative of [id number] arthritis Assessment/Plan 1 right hip severe degenerative arthritis Lumbosacral radiculopathy Suraj Huynh is a 81 y.o. year old female withRight hip osteoarthritis Again x-rays were explained to the patient and treatment options were discussed at length. She has central degenerative arthritis of her right hip joint along with severe osteoporosis. Different options were discussed at length with the patient. Surgical and nonsurgical. She continues to have significant pain interfering with her activities of daily living. She is fairly active for her age and lives alone. She works out on a regular basis at the hospital gym. Overall she is fairly healthy for her age with her primary medical issue being COPD with oxygen use at night. We discussed moving forward with medical clearances from her PCP and photographer portrait.Overall she seems to be a decent candidate for total joint arthroplasty. She would like to move forward with this because she continues to have significant pain. She has tried conservative treatments in the form of therapy and previous injections without improvement in her pain. Risk benefits and alternatives were discussed today in the clinic and informed consent was obtained risks being BLEEDING, INFECTION, NEUROVASCULAR INJURY, TENDON INJURY, IATROGENIC FRACTURES, LOOSENING, RECURRENT DISLOCATIONS, LIMB LENGTH INEQUALITY, NEED FOR MULTIPLE REVISIONS, RECURRENCE OF INFECTIONS, NEED FOR EXCISION ARTHROPLASTY, DEEP VEIN THROMBOSIS, PULMONARY EMBOLISM, MYOCARDIAL INFARCTION, STROKE, ANESTHETIC RISKS, MORTALITY, NEED FOR MULTIPLE REVISIONS AND PENITENTIARY PT AND REHAB. We did discuss that she might need to stay in the hospital overnight given her pulmonary complications.She demonstrated understanding of this and signed for the informed consent form. We will see her back postoperatively. Patient was also explained that she does have lumbosacral arthropathy and this part of the radicular pain may not completely go after the hip arthroplasty. Patient had questions about general anesthesia and I recommend that she direct these questions to her anesthesiolo (more content not included)... Normal [facility] Labon 09-07-2022 Lab [id number] Suraj Huynh 1940 F Date Provider Department [place] 09/07/2022 2244-[facility] MP LAB RESOURCE MP DRAW Medical Pavi Family History Family history unknown: Yes Normal [facility] MRSA/MSSA DNA NASALon 2022 MRSA DNA Negative Normal Negative [facility] Comment on above: Order Comment: Testi ng methodology is an automated qualitative in vitro diagnostic test for the directdetection and differentiation of Staphylococcus aureus (SA) DNA and methicillin-resistant Staphylococcus aureus (MRSA) DNA from nasal swabs in patients at risk for nasal colonization. The test utilizes real-time polymerase chain reaction (PCR) for the amplification of MRSA/SA DNA and fluorogenic target-specific hybridization probes for the detection of the amplified DNA. A negative result does not preclude nasal colonization. Performed By: #### L [id number] ####[facility] ([facility])[address] [place] [address] MSSA DNA Negative Normal Negative [facility] Comment on above: Order Comment: Testi ng methodology is an automated qualitative in vitro diagnostic test for the directdetection and differentiation of Staphylococcus aureus (SA) DNA and methicillin-resistant Staphylococcus aureus (MRSA) DNA from nasal swabs in patients at risk for nasal colonization. The test utilizes real-time polymerase chain reaction (PCR) for the amplification of MRSA/SA DNA and fluorogenic target-specific hybridization probes for the detection of the amplified DNA. A negative result does not preclude nasal colonization. Performed By: #### L [id number] ####[facility] ([facility])[address] [place] [address] PROTIME-INRon 09-07-2022 INR IN PPP BY COAGULATION ASSAY 0.96 Normal 0.90-1.10 [facility] Comment on above: Result Comment: [facility] P RECOMMENDED INR FOR WARFARIN THERAPY CONDITION INR PROPHYLAXIS OF VENOUS THROMBOSIS 2-3 (HIGH-RISK SURGERY) TREATMENT OF VENOUS THROMBOSIS 2-3 TREATMENT OF PULMONARY EMBOLISM 2-3 PREVENTION OF SYSTEMIC EMBOLISM: 2-3 ACUTE MYOCARDIAL INFARCTION TISSUE HEART VALVES VALVULAR HEART DISEASE ATRIAL FIBRILLATION RECURRENT SYSTEMIC EMBOLISM MECHANICAL HEART VALVE 2.5-3.5 FROM: ORAL ANTICOAGULANTS. MECHANISM OF ACTION, CLINICAL EFFECTIVENESS, AND OPTIMAL THERAPEUTIC RANGE. CHEST 1995;108:231S-246S. Performed By: #### L [id number] ####[facility] [employer])[address] [place] [address] PROTHROMBIN TIME (PT) IN PPP BY COAGULATION ASSAY 12.8 Seconds Normal 12.3-14.8 [facility] Comment on above: Performed By: #### L [id number] ####[facility] [employer])[address] [place] [address] TYPE AND SCREENon 09-07-2022 AB SCREEN Negative Normal [facility] Comment on above: Performed By: #### L [id number] ####[facility] BLOOD BANK, ABO group Nom (Bld) B Normal [facility] Comment on above: Performed By: #### L [id number] ####[facility] BLOOD BANK, RH TYPE IN BLOOD Positive Normal [facility] Comment on above: Performed By: #### L [id number] ####[facility] BLOOD B[facility], URINALYSIS MICROSCOPIC WITH REFLEX CULTUREon 09-07-2022 CASTS IN URINE Normal [facility] Comment on above: Performed By: #### L [id number] ####[facility] [employer])[address] [place] [address] CRYSTALS IN URINE Normal [facility] Comment on above: Performed By: #### L [id number] ####[facility] (BEAKER)[address] [place] [address] OTHER MICROSCOPIC ELEMENTS Normal [facility] Comment on above: Performed By: #### L [id number] ####[facility] (BEAKER)[address] [place] [address] RBC (#/HPF) IN URINE SEDIMENT None Seen Normal None Seen [facility] Comment on above: Performed By: #### L [id number] ####[facility] (BEAKER)[address] [place] [address] SQUAMOUS EPITHELIAL CELLS (#/HPF) IN URINE SEDIMENT Moderate Abnormal None Seen, Occasional [facility] Comment on above: Performed By: #### L [id number] ####[facility] (BEAKER)[address] [place] [address] WBC (LEUKOCYTE) (#/HPF) IN URINE SEDIMENT 6-10 Abnormal None Seen [facility] Comment on above: Performed By: #### L [id number] ####[facility] (BEAKER)[address] [place] [address] URINALYSIS WITH REFLEX CULTU REon 09-07-2022 BILIRUBIN, TOTAL PRESENCE IN URINE Negative Normal Negative [facility] Comment on above: Performed By: #### L [id number] ####[facility] (BEAKER)[address] [place] [address] Clarity (U) Slightly Cloudy Abnormal Clear [facility] Comment on above: Performed By: #### L [id number] ####[facility] (BEAKER)[address] [place] [address] Color (U) Yellow Normal Yellow [facility] Comment on above: Performed By: #### L [id number] ####[facility] (BEAKER)[address] [place] [address] Glucose (U) [Mass/Vol] Negative Normal Negative [facility] Comment on above: Performed By: #### L [id number] ####[facility] ([facility])[address] [place] [address] HEMOGLOBIN PRESENCE IN URINE Negative Normal Negative [facility] Comment on above: Performed By: #### L [id number] ####[facility] ([facility])[address] [place] [address] Ketones Ql (U) Negative Normal Negative [facility] Comment on above: Performed By: #### L [id number] ####[facility] ([facility])[address] [place] [address] LEUKOCYTE ESTERASE PRESENCE IN URINE BY TEST STRIP Moderate Abnormal Negative [facility] Comment on above: Performed By: #### L [id number] ####[facility] ([facility])[address] [place] [address] NITRITE PRESENCE IN URINE Negative Normal Negative [facility] Comment on above: Performed By: #### L [id number] ####[facility] ([facility])[address] [place] [address] pH (U) 8.0 [pH] Normal 5.0-8.0 [facility] Comment on above: Performed By: #### L [id number] ####[facility] ([facility])[address] [place] [address] Protein (U) [Mass/Vol] Negative Normal Negative [facility] Comment on above: Performed By: #### L [id number] ####[facility] ([facility])[address] [place] [address] Specific gravity (U) [Rel density] 1.010 Low 1.015-1.020 [facility] Comment on above: Performed By: #### L [id number] ####[facility] ([facility])[address] [place] [address] URINE CULTURE, ROUTINEon Bacteria identified Cx Nom (U) <10,000 CFU/ML No Significant Growth Normal [facility] Comment on above: Performed By: #### L [id number] ####[facility] ([facility])[address] [place] [address] CHEMISTRYOrdered By: SYSTEM SYSTEM on 07-12-2022 Albumin [Mass/Vol] 4.1 g/dL Normal 3.3 - 5.0 gm/dL [facility] Albumin/Globulin [Mass ratio] 1.4 {ratio} Normal 1.1 - 2.2 [facility] ALP [Catalytic activity/Vol] 60 [iU]/d Normal 21 - 98 Int._Unit/L [facility] ALT No additional P-5'-P [Catalytic activity/Vol] 22 [iU]/d Normal 6 - 46 Int._Unit/L [facility] Anion gap [Moles/Vol] 12 mmol/L Normal 6 - 16 mEq/L [facility] AST [Catalytic activity/Vol] 26 [iU]/d Normal 5 - 43 Int._Unit/L [facility] Bilirubin [Mass/Vol] 0.6 mg/dL Normal 0.0 - 1 .1 mg/dL [facility] Calcium [Mass/Vol] 9.1 mg/dL Normal 8.9 - 11. 1 mg/dL [facility] Chloride [Moles/Vol] 99 mmol/L Low 101 - 1 11 mmol/L [facility] Cholesterol [Mass/Vol] 190 mg/dL Normal 120 - 200 mg/dL [facility] Cholesterol in HDL [Mass/Vol] 77 mg/dL Invalid Interpretation Code [facility] Cholesterol in LDL [Mass/Vol] 88 mg/dL Normal <=129mg/dL [facility] Cholesterol in VLDL [Mass/Vol] 10 mg/dL Normal 7 - 40 mg/dL [facility] CO2 [Moles/Vol] 30 mmol/L Normal 21 - 31 mmol/L [facility] Creatinine [Mass/Vol] 0.8 mg/dL Normal 0.5 - 1.3 mg/dL [facility] GFR/1.73 sq M.predicted among blacks MDRD (S/P/Bld) [Vol rate/Area] mL/min/1.73 m2 Normal >=59mL/min/1. 73 m2 [facility] Chem S GFR/1.73 sq M.predicted among non-blacks MDRD (S/P/Bld) [Vol rate/Area] mL/min/1.73 m2 Normal >=59mL/min/1. 73 m2 [facility] Chem S Globulin (S) [Mass/Vol] 2.9 g/dL Normal 1.4 - 4.0 gm/dL [facility] Glucose [Mass/Vol] 97 mg/dL Normal 55 - 199 mg/dL [facility] Potassium [Moles/Vol] 3.7 mmol/L Normal 3.5 - 5.3 mmol/L [facility] Protein [Mass/Vol] 7.0 g/dL Normal 6.0 - 7.8 gm/dL [facility] Sodium [Moles/Vol] 137 mmol/L Normal 135 - 145 mmol/L [facility] Triglyceride [Mass/Vol] 51 mg/dL Normal <=149mg/dL [facility] TSH Qn 3.14 m[IU]/L Normal 0.34 - 5.60 mcIU/mL [facility] Urea nitrogen [Mass/Vol] 20 mg/dL Normal 5 - 21 mg/dL [facility] Urea nitrogen/Creatinine [Mass ratio] 25 mg/mg High 10 - 20 [facility] HEMATOLOGYOrdered By: SYSTEM SYSTEM on 07-12-2022 Basophils/100 WBC (Bld) 0.9 % Normal 0.0 - 2.0 % [facility] Basophils/Leukocytes Auto (Bld) [Pure # fraction] 0.0 E9/L Normal 0.0 - 0.2 E9/L [facility] Eosinophils/100 WBC (Bld) 2.0 % Normal 0.0 - 8.0 % [facility] Eosinophils/Leukocyt es Auto (Bld) [Pure # fraction] 0.1 E9/L Normal 0.0 - 0.5 E9/L [facility] Lymphocytes/100 WBC (Bld) 35.1 % Normal 14.0 - 50.0 % [facility] Lymphocytes/Leukocyt es Auto (Bld) [Pure # fraction] 1.7 E9/L Normal 1.0 - 4.0 E9/L [facility] Monocytes/100 WBC (Bld) 11.2 % Normal 4.0 - 14.0 % [facility] Monocytes/Leukocytes Auto (Bld) [Pure # fraction] 0.5 E9/L Normal 0.2 - 1.0 E9/L [facility] Neutrophils/100 WBC (Bld) 50.8 % Normal 36.0 - 75.0 % [facility] Neutrophils/Leukocyt es Auto (Bld) [Pure # fraction] 2.4 E9/L Normal 2.0 - 7.5 E9/L [facility] HEMATOLOGYOrdered By: Aleksey Maddox on 07-12-2022 Erythrocyte distribution width (RBC) [Ratio] 14.0 % Normal 10.9 - 14.2 % [facility] Hematocrit (Bld) [Volume fraction] 36.4 % Normal 34.0 - 46.0 % [facility] Hemoglobin (Bld) [Mass/Vol] 11.8 g/dL Low 12.0 - 16.0 gm/dL [facility] MCH (RBC) [Entitic mass] 27.3 pg Normal 27.0 - 34.0 pg [facility] MCHC (RBC) [Mass/Vol] 32.4 g/dL Normal 31.4 - 36.0 gm/dL [facility] MCV (RBC) [Entitic vol] 84.3 fL Normal 80.0 - 100.0 fL [facility] Platelet mean volume (Bld) [Entitic vol] 9.1 fL Normal 6.4 - 10.8 fL [facility] Platelets (Bld) [#/Vol] 293.0 E9/L Normal 150.0 - 500.0 E9/L [facility] RBC (Bld) [#/Vol] 4.3 E12/L Normal 4.3 - 5.9 E12/L [facility] WBC corrected for nucl RBC Auto (Bld) [#/Vol] 4.8 E9/L Normal 4.0 - 11.0 E9/L [facility] Office Visiton 07-06-2022 Follow-up visit [id number] Suraj Huynh 1940 F Date Provider Department Center 07/06/2022 RUDY MCMULLEN [facility] MP[facility]THO Family History Family history unknown: Yes Level of Service:36236 DC OFFICE/OUTPATIENT ESTABLISHED HIGH MDM 40-54 MIN (GC,57) Reason for Visit and Comments: Follow-up [569010] Pain [136] Normal [facility] HIP RIGHT 1 OR 2 VWS WITH PE LVISon 11-22-2021 HIP RIGHT 1 OR 2 VWS WITH PELVIS [facility] Department of Radiology [address] [place] [address] ======== Patient Name: SURAJ HUYNH : 1940 Sex: F Age: Race: White Pt. Location: 84 Patient Status: Ordered Date: 11/22/2021 10:15:00 AM Completed Date: 11/22/2021 10:56 AM Requesting Provider: NATALIE BUTLER Attending Provider: Report Copy To: Signs & Symptoms: M25.551 Pain in right hip I10 History: [place] Comments: Evaluate Exam: HIP RIGHT 1 OR 2 VWS WITH PELVIS ======== HIP RIGHT 1 OR 2 VWS WITH PELVIS 11/22/2021 10:56 AM CLINICAL INDICATIONS: M25.551 Pain in right hip I10 TECHNOLOGIST COMMENTS: Patient complains of right hip pain. Recent fall August 2021. QUESTION FOR THE RADIOLOGIST: Evaluate PROTOCOL: AP(PA) and Lateral views were obtained. COMPARISON: None Findings: Degenerative changes of bilateral hip joints, right worse than left. Significant subchondral sclerosis of right femoral head and acetabulum, with severe right femoral acetabular joint space narrowing. No acute pathology. IMPRESSION: Severe degenerative changes of the right hip joint. Approved by:Baldo Blair11/22/2021 1:41 PM. I, Елена Ochoa,have reviewed the image(s) and agree with the findings in this report. Electronically signed: Елена Ochoa. Transcribed by: [email or web address], User Resident: BALDO ALARCON Electronically Signed by: ЕЛЕНА OCHOA @ 11/22/2021 03:44 PM I personally read this/these film(s) with this resident Normal [facility] Comment on above: Order Comment: Evalu ate MRI HIP RT WO CONon 11-15-19 MRI HIP RT WO CON HISTORY: Acute pain in the right hip after a fall. MRI HIP RT WO CON: 11/13/2021 8:59 AM EDT COMPARISON: Radiographs of the right hip 11/06/2021. TECHNIQUE: Multiplanar, multisequence MRI images of the pelvis and right hip were obtained without contrast. FINDINGS: The bone marrow signal intensity is age appropriate. There appear to be mild degenerative changes of the sacroiliac joints. There are severe degenerative changes of the pubic symphysis. The uterus is not visualized. There is mild diverticulosis of the sigmoid colon without evidence of diverticulitis. There appear to be probably at least moderate degenerative changes of the left hip joint on the large [id number] images of the pelvis. There are severe degenerative changes of the right hip joint with severe joint space narrowing superiorly and superomedially. There is also a complex degenerative tear of the anterior and lateral aspect of the labrum of the right hip. There is a large right hip joint effusion with a probable underlying synovitis and/or loose bodies within the joint. There is evidence of mild flattening of the anterosuperior and superior aspect of the right femoral head articular surface as best seen on the coronal STIR sequence. There is a large amount of patchy decreased T1 and increased STIR signal intensity within the underlying subchondral bone in this region. There is also a moderate amount of patchy bone marrow edema extending through the femoral neck into the subtrochanteric region. No trochanteric or iliopsoas bursitis is seen. There appears to be probable chronic moderate tendinopathy and low-grade partial-thickness tears of the deep fibers of the common hamstring tendon complexes at their origins bilaterally. IMPRESSION: 1. Severe, end-stage osteoarthritis of the right hip joint with a large joint effusion and a probable underlying synovitis and/or loose bodies within the joint. There is evidence of mild flattening of the anterosuperior and superior aspect of the right femoral head with underlying bone marrow edema extending from the femoral head through the femoral neck into the subtrochanteric region. This appearance is probably secondary to a subchondral insufficiency fracture of the femoral head or could less likely represent the sequela of avascular necrosis. 2. There appear to be at least moderate degenerative changes of the left hip joint and there are severe degenerative changes of the pubic symphysis. This report was placed in the wet read folder to be faxed and called to the referring clinician's office ([place]) on the morning of 11/14/2021 shortly after the study was presented for interpretation. Electronically authenticated by: MELCHOR FISH Date: 2021-11-14 07:15 Normal [facility] XR foot LT min 3V*on 022 XR foot LT min 3V* [facility] [place] [address] [place] [address] XRay Report Signed Patient: Suraj Huynh MR#: [id number] : 1940 Acct:[id number] Age/Sex: 80 / F ADM Date: 10/27/21 Loc: [facility] Room: Type: [facility] Attending Dr: Jacob Finley DO Copies to: Jacob Finley DO Ordering Provider: Jacob Finley DO Date of Service: 10/27/21 XR/XR foot LT min 3V*: Closed nondisplaced fracture of fifth metatarsal bone of lef LEFT FOOT - 3 views CLINICAL DATA: Follow-up fifth metatarsal fracture COMPARISON: 09/15/2021 AP, lateral and oblique views were obtained. The bony structures are osteopenic. There is redemonstration of a fracture at the base of the fifth metatarsal. There is potential slight deve loping distraction versus resorption at the fracture cleft. There is no prominent callus formation. There is no new fracture or dislocation. There is slight hallux valgus deformity and mild degenerative change at the first metatarsal phalangeal joint. There is spurring at the dorsum of the tarsals. Calcaneal spurs are noted There are no significant soft tissue abnormalities. XR/XR foot LT min 3V* IMPRESSION: FIFTH METATARSAL FRACTURE, DESCRIBED. OSTEOPENIA, DEGENERATIVE CHANGES AND HALLUX VALGUS DEFORMITY. Impression dictated by: Ainsley Herrera M.D.10/27/2021 2:55 PM Dictation Location: [place] [address] Transcribed By: [facility] 10/27/211454 Dictated By: Ainsley Herrera MD 10/27/211452 Signed By: 10/27/211454 Normal [facility] XR CHEST 2 Von 07-18-2021 XR CHEST 2 V EXAMINATION: XR CHES T 2 V HISTORY: Acute exacerbation of chronic obstructive airways disease COMPARISON: 12/13/2020 TECHNIQUE: PA and lateral FINDINGS: LUNGS: No significant pulmonary parenchymal abnormalities. Calcified tracheobronchial tree. Stable hyperinflation. VASCULATURE: No increased pulmonary vasculature. PLEURA: No pneumothorax, effusion, or pleural thickening. CARDIAC: No cardiomegaly or cardiac silhouette abnormality. MEDIASTINUM: No visible mass or adenopathy. Aortic atherosclerosis BONES: No fracture or visible bone lesion. OTHER: Negative. IMPRESSION: No acute disease. Electronically authenticated by: SADE COSBY Date: 2021-07-18 15:31 Normal [facility] CBC AUTO DIFFon 06-19-2021 BASO # 0.0 103/ul Normal 0.0-0.1 [facility] Comment on above: Performed By: #### C BC #### [facility] Laboratory [address] [place] [address] Dr. Devika Morel Basophils/100 WBC (Bld) 0.5 % Normal 0.2-2.0 [facility] Comment on above: Performed By: #### C BC #### [facility] Laboratory [address] [place] [address] Dr. Devika Morel EO # 0.1 103/ul Normal 0.0-0.7 [facility] Comment on above: Performed By: #### C BC #### [facility] Laboratory [address] [place] [address] Dr. Devika Morel Eosinophils/100 WBC (Bld) 1.7 % Normal 0.9-7.0 [facility] Comment on above: Performed By: #### C BC #### [facility] [address] [place] [address] Dr. Devika Morel Erythrocyte distribution width (RBC) [Ratio] 14.0 % Normal 11.0-15.0 [facility] Comment on above: Performed By: #### C BC #### [facility] [address] [place] [address] Dr. Devika Morel Hematocrit (Bld) [Volume fraction] 41.7 % Normal 36.0-48.0 [facility] Comment on above: Performed By: #### C BC #### [facility] [address] [place] [address] Dr. Devika Morel Hemoglobin (Bld) [Mass/Vol] 12.8 g/dL Normal 12.0-16.0 [facility] Comment on above: Performed By: #### C BC #### [facility] [address] [place] [address] Dr. Devika Morel IG # 0.02 10e3/ul Normal 0.00-0.03 [facility] Comment on above: Performed By: #### C BC #### [facility] [address] [place] [address] Dr. Devika Morel IG % 0.3 % Normal 0.0-0.5 [facility] Comment on above: Performed By: #### C BC #### [facility] [address] [place] [address] Dr. Devika Morel LYMPH # 2.7 103/ul Normal 1.2-3.8 [facility] Comment on above: Performed By: #### C BC #### [facility] [address] [place] [address] Dr. Devika Morel Lymphocytes/100 WBC (Bld) 34.7 % Normal 20.5-60.0 [facility] Comment on above: Performed By: #### C BC #### [facility] [address] [place] [address] Dr. Devika Morel MANUAL DIFF REQ NO Normal [facility] Comment on above: Performed By: #### C BC #### [facility] [address] [place] [address] Dr. Devika Morel MCH (RBC) [Entitic mass] 26.9 pg Normal 26.7-34.0 [facility] Comment on above: Performed By: #### C BC #### [facility] [address] [place] [address] [address] Devika Morel MCHC (RBC) [Mass/Vol] 30.7 g/dL Normal 29.9-35.2 [facility] Comment on above: Performed By: #### C BC #### [facility] [address] [place] [address] Dr. Devika Morel MCV (RBC) [Entitic vol] 87.8 fL Normal 81.0-99.0 [facility] Comment on above: Performed By: #### C BC #### [facility] [address] [place] [address] Dr. Devika Morel MONO # 0.7 103/ul Normal 0.3-0.8 [facility] Comment on above: Performed By: #### C BC #### [facility] [address] [place] [address] Dr. Devika Morel Monocytes/100 WBC (Bld) 9.3 % Normal 1.7-12.0 [facility] Comment on above: Performed By: #### C BC #### [facility] [address] [place] [address] Dr. Devika Morel NEUT # 4.1 103/ul Normal 1.4-6.5 [facility] Comment on above: Performed By: #### C BC #### [facility] [address] [place] [address] Dr. Devika Morel Neutrophils/100 WBC (Bld) 53.5 % Normal 43.0-75.0 [facility] Comment on above: Performed By: #### C BC #### [facility] [address] [place] [address] Dr. Devika Morel Platelet mean volume (Bld) [Entitic vol] 9.7 fL Normal 9.5-13.5 [facility] Comment on above: Performed By: #### C BC #### [facility] [address] [place] [address] Dr. Devika Morel PLT 298 103/ul Normal 150-450 [facility] Comment on above: Performed By: #### C BC #### [facility] [address] [place] [address] [address] Devika Morel RBC 4.75 106/ul Normal 4.20-5.40 [facility] Comment on above: Performed By: #### C BC #### [facility] [address] [place] [address] [address] Devika Morel WBC 7.7 103/ul Normal 4.0-11.0 [facility] Comment on above: Performed By: #### C BC #### [facility] [address] [place] [address] [address] Devika Morel LIPID PROFILEon 06-19-2021 CHOL-HDL RATIO NORM SEE BELOW Normal [facility] Comment on above: Result Comment: 3.3 - 4.4 LOW RISK 4.4 - 7.1 AVERAGE RISK 7.1 - 11.0 MODERATE RISK >11.0 HIGH RISK Performed By: #### C BC #### [facility] [address] [place] [address] Dr. Devika Morel Cholesterol [Mass/Vol] 190 mg/dL Normal <=200 [facility] Comment on above: Performed By: #### C BC #### [facility] [address] [place] [address] Dr. Devika Morel Cholesterol in HDL [Mass/Vol] 88 mg/dL Critically high 40-60 [facility] Comment on above: Performed By: #### C BC #### [facility] [address] [place] [address] [address] Devika Morel Cholesterol in LDL [Mass/Vol] 90.0 mg/dL Normal [facility] Comment on above: Performed By: #### C BC #### [facility] [address] [place] [address] [address] Devika Morel Cholesterol.total/Ch olesterol in HDL [Mass ratio] 2.2 {ratio} Normal [facility] Comment on above: Performed By: #### C BC #### [facility] [address] [place] [address] Dr. Devika Morel HDL NORMAL > or = 60 mg/dl - LO W CARDIOVASCULAR RISK <40 mg/dl - HIGH CARDIOVASCULAR RISK Normal [facility] Comment on above: Performed By: #### C BC #### [facility] [address] [place] [address] [address] Devika Morel LDL CALC NORMAL SEE BELOW Normal [facility] Comment on above: Result Comment: <100 mg/dl OPTIMAL 100 - 129 mg/dl NEAR OR ABOVE OPTIMAL 130 - 159 mg/dl BORDERLINE HIGH 160 - 189 mg/dl HIGH >190 mg/dl VERY HIGH Performed By: #### C BC #### [facility] [address] [place] [address] [address] Devika Morel Triglyceride [Mass/Vol] 60 mg/dL Normal <=150 [facility] Comment on above: Performed By: #### C BC #### [facility] [address] [place] [address] Dr. Devika Morel VLDL CALC 12.0 mg/dL Normal [facility] Comment on above: Performed By: #### C BC #### [facility] [address] [place] [address] Dr. Devika Morel PROF 14(COMP METB)on 022 Albumin [Mass/Vol] 3.8 g/dL Normal 3.4-5.0 [facility] Comment on above: Performed By: #### C BC #### [facility] [address] [place] [address] Dr. Devika Morel Albumin/Globulin [Mass ratio] 1.1 {ratio} Normal [facility] Comment on above: Performed By: #### C BC #### [facility] [address] [place] [address] Dr. Devika Morel ALP [Catalytic activity/Vol] 77 U/L Normal 46-116 [facility] Comment on above: Performed By: #### C BC #### [facility] [address] [place] [address] Dr. Devika Morel ALT [Catalytic activity/Vol] 50 U/L Normal 14-59 [facility] [facility] Comment on above: Performed By: #### C BC #### [facility] [address] [place] [address] Dr. Devika Morel Anion gap [Moles/Vol] 11.2 mmol/L Normal [facility] Comment on above: Performed By: #### C BC #### [facility] [address] [address] [address] Devika Morel AST [Catalytic activity/Vol] 28 U/L Normal 15-37 [facility] Comment on above: Performed By: #### C BC #### [facility] [address] [address] [address] Devika Morel Bilirubin [Mass/Vol] 0.7 mg/dL Normal 0.2-1.3 [facility] Comment on above: Performed By: #### C BC #### [facility] [address] [address] [address] Devika Morel Calcium [Mass/Vol] 8.8 mg/dL Normal 8.5-10.1 [facility] Comment on above: Performed By: #### C BC #### [facility] [address] [address] [address] Devika Morel Chloride [Moles/Vol] 103 mmol/L Normal 98-107 [facility] Comment on above: Performed By: #### C BC #### [facility] [address] [address] [address] Devika Morel CO2 [Moles/Vol] 32.1 mmol/L Critically high 22.0-30.0 [facility] Comment on above: Performed By: #### C BC #### [facility] [address] [address] [address] Devika Morel Creatinine [Mass/Vol] 0.79 mg/dL Normal 0.52-1.04 [facility] Comment on above: Performed By: #### C BC #### [facility] [address] [place] [address] Dr. Devika Morel EGFR-AF ECUADOREAN >60 Normal >=60 [facility] Comment on above: Performed By: #### C BC #### [facility] [address] [address] [address] Devika Morel EGFR-NON AF ECUADOREAN >60 Normal >=60 [facility] Comment on above: Performed By: #### C BC #### [facility] [address] [address] [address] Devika Morel Globulin (S) [Mass/Vol] 3.6 g/dL Normal [facility] Comment on above: Performed By: #### C BC #### [facility] [address] [address] [address] Devika Morel Glucose [Mass/Vol] 103 mg/dL Normal 74-106 [facility] Comment on above: Performed By: #### C BC #### [facility] [address] [address] [address] Devika Morel Potassium [Moles/Vol] 4.3 mmol/L Normal 3.4-5.0 [facility] Comment on above: Performed By: #### C BC #### [facility] [address] [place] [address] Dr. Devika Morel Protein [Mass/Vol] 7.4 g/dL Normal 6.1-8.2 [facility] Comment on above: Performed By: #### C BC #### [facility] [address] [address] [address] Devika Morel Sodium [Moles/Vol] 142 mmol/L Normal 137-145 [facility] Comment on above: Performed By: #### C BC #### [facility] [address] [address] [address] Devika Morel Urea nitrogen [Mass/Vol] 19.0 mg/dL Critically high 7.0-18.0 [facility] Comment on above: Performed By: #### C BC #### [facility] [address] [address] [address] Devika Morel Urea nitrogen/Creatinine [Mass ratio] 24.1 mg/mg Normal [facility] Comment on above: Performed By: #### C BC #### [facility] [address] [address] [address] Devika Morel CBC AUTO DIFFon 01-10-2021 BASO # 0.1 103/ul Normal 0.0-0.1 [facility] Comment on above: Performed By: #### C BC #### [facility] [address] [address] [address] Devika Morel Basophils/100 WBC (Bld) 0.8 % Normal 0.2-2.0 [facility] Comment on above: Performed By: #### C BC #### [facility] [address] [address] [address] Devika Morel EO # 0.3 103/ul Normal 0.0-0.7 [facility] Comment on above: Performed By: #### C BC #### [facility] [address] [address] [address] Devika Morel Eosinophils/100 WBC (Bld) 5.0 % Normal 0.9-7.0 [facility] Comment on above: Performed By: #### C BC #### [facility] [address] [place] [address] Dr. Devika Morel Erythrocyte distribution width (RBC) [Ratio] 13.2 % Normal 11.0-15.0 [facility] Comment on above: Performed By: #### C BC #### [facility] [address] [place] [address] Dr. Devika Morel Hematocrit (Bld) [Volume fraction] 37.5 % Normal 36.0-48.0 [facility] Comment on above: Performed By: #### C BC #### [facility] [address] [place] [address] Dr. Devika Morel Hemoglobin (Bld) [Mass/Vol] 11.6 g/dL Critically low 12.0-16.0 [facility] Comment on above: Performed By: #### C BC #### [facility] [address] [address] [address] Devika Morel IG # 0.03 10e3/ul Normal 0.00-0.03 [facility] Comment on above: Performed By: #### C BC #### [facility] [address] [address] [address] Devika Morel IG % 0.5 % Normal 0.0-0.5 [facility] Comment on above: Performed By: #### C BC #### [facility] [address] [place] [address] Dr. Devika Morel LYMPH # 2.1 103/ul Normal 1.2-3.8 [facility] Comment on above: Performed By: #### C BC #### [facility] [address] [place] [address] Dr. Devika Morel Lymphocytes/100 WBC (Bld) 33.4 % Normal 20.5-60.0 [facility] Comment on above: Performed By: #### C BC #### [facility] [address] [place] [address] Dr. Devika Morel MANUAL DIFF REQ NO Normal [facility] Comment on above: Performed By: #### C BC #### [facility] [address] [place] [address] Dr. Devika Morel MCH (RBC) [Entitic mass] 27.1 pg Normal 26.7-34.0 [facility] Comment on above: Performed By: #### C BC #### [facility] [address] [place] [address] Dr. Devika Morel MCHC (RBC) [Mass/Vol] 30.9 g/dL Normal 29.9-35.2 [facility] Comment on above: Performed By: #### C BC #### [facility] [address] [place] [address] Dr. Devika Morel MCV (RBC) [Entitic vol] 87.6 fL Normal 81.0-99.0 [facility] Comment on above: Performed By: #### C BC #### [facility] [address] [place] [address] Dr. Devika Morel MONO # 0.8 103/ul Normal 0.3-0.8 [facility] Comment on above: Performed By: #### C BC #### [facility] [address] [place] [address] Dr. Devika Morel Monocytes/100 WBC (Bld) 12.7 % Critically high 1.7-12.0 [facility] Comment on above: Performed By: #### C BC #### [facility] [address] [place] [address] Dr. Devika Morel NEUT # 3.1 103/ul Normal 1.4-6.5 [facility] Comment on above: Performed By: #### C BC #### [facility] [address] [address] [address] Devika Morel Neutrophils/100 WBC (Bld) 47.6 % Normal 43.0-75.0 [facility] Comment on above: Performed By: #### C BC #### [facility] [address] [place] [address] Dr. Devika Morel Platelet mean volume (Bld) [Entitic vol] 9.1 fL Critically low 9.5-13.5 [facility] Comment on above: Performed By: #### C BC #### [facility] [address] [place] [address] Dr. Devika Morel PLT 399 103/ul Normal 150-450 [facility] Comment on above: Performed By: #### C BC #### [facility] [address] [place] [address] Dr. Devika Morel RBC 4.28 106/ul Normal 4.20-5.40 [facility] Comment on above: Performed By: #### C BC #### [facility] [address] [place] [address] Dr. Devika Morel WBC 6.4 103/ul Normal 4.0-11.0 [facility] Comment on above: Performed By: #### C BC #### [facility] [address] [place] [address] Dr. Devika Morel LIPID PROFILEon 01-10-2021 CHOL-HDL RATIO NORM SEE BELOW Normal [facility] Comment on above: Result Comment: 3.3 - 4.4 LOW RISK 4.4 - 7.1 AVERAGE RISK 7.1 - 11.0 MODERATE RISK >11.0 HIGH RISK Performed By: #### L IPID, TSH, CMP #### [facility] [address] [place] [address] Dr. Devika Morel Cholesterol [Mass/Vol] 247 mg/dL Critically high <=200 [facility] Comment on above: Performed By: #### L IPID, TSH, CMP #### [facility] [address] [address] [address] Devika Morel Cholesterol in HDL [Mass/Vol] 74 mg/dL Normal [facility] Comment on above: Performed By: #### L IPID, TSH, CMP #### [facility] [address] [address] [address] Devika Morel Cholesterol in LDL [Mass/Vol] 161.2 mg/dL Normal [facility] Comment on above: Performed By: #### L IPID, TSH, CMP #### [facility] [address] [address] [address] Devika Morel Cholesterol.total/Ch olesterol in HDL [Mass ratio] 3.3 {ratio} Normal [facility] Comment on above: Performed By: #### L IPID, TSH, CMP #### [facility] [address] [address] [address] Devika Morel HDL NORMAL > or = 60 mg/dl - LO W CARDIOVASCULAR RISK <40 mg/dl - HIGH CARDIOVASCULAR RISK Normal [facility] Comment on above: Performed By: #### L IPID, TSH, CMP #### [facility] [address] [place] [address] Dr. Devika Morel LDL CALC NORMAL SEE BELOW Normal [facility] Comment on above: Result Comment: <100 mg/dl OPTIMAL 100 - 129 mg/dl NEAR OR ABOVE OPTIMAL 130 - 159 mg/dl BORDERLINE HIGH 160 - 189 mg/dl HIGH >190 mg/dl VERY HIGH Performed By: #### L IPID, TSH, CMP #### [facility] [address] [address] [address] Devika Morel Triglyceride [Mass/Vol] 59 mg/dL Normal <=150 [facility] Comment on above: Performed By: #### L IPID, TSH, CMP #### [facility] [address] [address] [address] Devika Morel VLDL CALC 11.8 mg/dL Normal [facility] Comment on above: Performed By: #### L IPID, TSH, CMP #### [facility] [address] [place] [address] Dr. Devika Morel PROF 14(COMP METB)on 021 Albumin [Mass/Vol] 3.2 g/dL Critically low 3.5-5.0 Th e [facility] Comment on above: Performed By: #### L IPID, TSH, CMP #### [facility] [address] [place] [address] Dr. Devika Morel Albumin/Globulin [Mass ratio] 0.8 {ratio} Normal [facility] Comment on above: Performed By: #### L IPID, TSH, CMP #### [facility] [address] [place] [address] Dr. Devika Morel ALP [Catalytic activity/Vol] 81 U/L Normal 38-126 [facility] Comment on above: Performed By: #### L IPID, TSH, CMP #### [facility] [address] [place] [address] Dr. Devika Morel ALT [Catalytic activity/Vol] 28 U/L Normal 9-52 [facility] Comment on above: Performed By: #### L IPID, TSH, CMP #### [facility] [address] [place] [address] Dr. Devika Morel Anion gap [Moles/Vol] 7.8 mmol/L Normal [facility] Comment on above: Performed By: #### L IPID, TSH, CMP #### [facility] [address] [place] [address] Dr. Devika Morel AST [Catalytic activity/Vol] 22 U/L Normal 14-36 [facility] Comment on above: Performed By: #### L IPID, TSH, CMP #### [facility] [address] [place] [address] Dr. Devika Morel Bilirubin [Mass/Vol] 0.4 mg/dL Normal 0.2-1.3 [facility] Comment on above: Performed By: #### L IPID, TSH, CMP #### [facility] [address] [place] [address] Dr. Devika Morel Calcium [Mass/Vol] 9.4 mg/dL Normal 8.4-10.2 [facility] Comment on above: Performed By: #### L IPID, TSH, CMP #### [facility] [address] [address] [address] Devika Morel Chloride [Moles/Vol] 103 mmol/L Normal 98-107 [facility] Comment on above: Performed By: #### L IPID, TSH, CMP #### [facility] [address] [address] [address] Devika Morel CO2 [Moles/Vol] 34.4 mmol/L Critically high 22.0-30.0 [facility] Comment on above: Performed By: #### L IPID, TSH, CMP #### [facility] [address] [place] [address] Dr. Devika Morel Creatinine [Mass/Vol] 0.79 mg/dL Normal 0.52-1.04 [facility] Comment on above: Performed By: #### L IPID, TSH, CMP #### [facility] [address] [place] [address] Dr. Devika Morel EGFR-AF ECUADOREAN >60 Normal >=60 [facility] Comment on above: Performed By: #### L IPID, TSH, CMP #### [facility] [address] [place] [address] Dr. Devika Morel EGFR-NON AF ECUADOREAN >60 Normal >=60 [facility] Comment on above: Performed By: #### L IPID, TSH, CMP #### [facility] [address] [address] [address] Devika Morel Globulin (S) [Mass/Vol] 4.2 g/dL Normal [facility] Comment on above: Performed By: #### L IPID, TSH, CMP #### [facility] [address] [address] [address] Devika Morel Glucose [Mass/Vol] 99 mg/dL Normal 74-106 [facility] Comment on above: Performed By: #### L IPID, TSH, CMP #### [facility] [address] [address] [address] Devika Morel Potassium [Moles/Vol] 4.2 mmol/L Normal 3.4-5.0 [facility] Comment on above: Performed By: #### L IPID, TSH, CMP #### [facility] [address] [place] [address] Dr. Devika Morel Protein [Mass/Vol] 7.4 g/dL Normal 6.1-8.2 [facility] Comment on above: Performed By: #### L IPID, TSH, CMP #### [facility] [address] [address] [address] Devika Morel Sodium [Moles/Vol] 141 mmol/L Normal 137-145 [facility] Comment on above: Performed By: #### L IPID, TSH, CMP #### [facility] [address] [place] [address] Dr. Devika Morel Urea nitrogen [Mass/Vol] 18.0 mg/dL Critically high 7.0-17.0 [facility] Comment on above: Performed By: #### L IPID, TSH, CMP #### [facility] [address] [place] [address] Dr. Devika Morel Urea nitrogen/Creatinine [Mass ratio] 22.8 mg/mg Normal [facility] Comment on above: Performed By: #### L IPID, TSH, CMP #### [facility] [address] [place] [address] Dr. Devika Morel TSHon 01-10-2021 TSH 3.048 uIU/mL Normal 0.470-4.[address] [facility] Comment on above: Performed By: #### L IPID, TSH, CMP #### [facility] [address] [place] [address] Dr. Devika Morel TSH RANGE SEE BELOW Normal [facility] Comment on above: Result Comment: <0.3 4 UIU/ml HYPERTHYROID 0.34-5.60 UIU/ml EUTHYROID >5.60 UIU/ml HYPOTHYROID Performed By: #### L IPID, TSH, CMP #### [facility] [address] [address] [address] Devika Morel Covid-19 PCR (CVDTB)on 11-24 SARS-CoV-2 (COVID-19) RNA MEJIA+probe Ql (Unsp spec) Detected Critically abnormal NOT DETECTED [facility] Comment on above: Result Comment: This test is not yet approved or cleared by the [place] FDA. When there are no FDA-approved or cleared tests available, and other criteria are met, FDA can make tests available under an emergency access mechanism called an Emergency Use Authorization (EUA). The EUA for this test is supported by the [employer] Tester of Health and Human Service's (HHS's) declaration that circumstances exist to justify the emergency use of in vitro diagnostics for the detection and/or diagnosis of the virus that causes COVID-19. This EUA will remain in effect (meaning this test can be used) for the duration of the COVID-19 declaration justifying emergency of IVDs, unless it is terminated or revoked by FDA (after which the test may no longer be used). Performed By: #### C BC #### [facility] [id number] Devika Morel XR CHEST 2 Von 12-13-2020 XR CHEST 2 V EXAMINATION: XR CHES T 2 V HISTORY: Cough COMPARISON: 10/08/2019 TECHNIQUE: PA and lateral FINDINGS: LUNGS: Minimal bibasilar patchy opacities. Calcified tracheal bronchial tree VASCULATURE: No increased pulmonary vasculature. PLEURA: No pneumothorax, effusion, or pleural thickening. CARDIAC: No cardiomegaly or cardiac silhouette abnormality. MEDIASTINUM: No visible mass or adenopathy. Calcified aorta BONES: No fracture or visible bone lesion. OTHER: Negative. IMPRESSION: Minimal bibasilar atelectasis Electronically authenticated by: SADE COSBY Date: 2020-12-13 11:08 Normal [facility] Covid-19 PCR (CVDTB)on SARS-CoV-2 (COVID-19) RNA MEJIA+probe Ql (Unsp spec) Not detected Normal NOT DETECTED [facility] Comment on above: Result Comment: This test is not yet approved or cleared by the [place] FDA. When there are no FDA-approved or cleared tests available, and other criteria are met, FDA can make tests available under an emergency access mechanism called an Emergency Use Authorization (EUA). The EUA for this test is supported by the [place] Tester of Health and Human Service's (HHS's) declaration that circumstances exist to justify the emergency use of in vitro diagnostics for the detection and/or diagnosis of the virus that causes COVID-19. This EUA will remain in effect (meaning this test can be used) for the duration of the COVID-19 declaration justifying emergency of IVDs, unless it is terminated or revoked by FDA (after which the test may no longer be used). When diagnostic testing is negative, the possibility of a false negative should be considered in the context of a patient's recent exposures and the presence of clinical signs and symptoms consistent with SARS-CoV-2. Performed By: #### C BC #### [facility] [address] [place] [address] Dr. Devika Morel SYMPTOMATIC COVID-19 ANTIGEN on 11-29-2020 EUA Statement SEE BELOW Normal [facility] Comment on above: Result Comment: This test has not been FDA cleared or approved, but has been authorized by the FDA under an Emergency Use Authorization (EUA) for use by authorized laboratories certified under CLIA that meet the requirements to perform moderate or high complexity testing. This test has been authorized only for the detection of proteins from SARS-CoV-2, not for any other viruses or pathogens. The emergency use of this test is authorized for the duration of the declaration that circumstances exist justifying the authorization of emergency use of in vitro diagnostic tests for detection and/or diagnosis of Covid-19 under section 564(b)(1) of the Act, 21 U.S.C. 360bbb-3(b)(1), unless the declaration is terminated or authorization is revoked sooner. Performed By: #### C BC #### [facility] [address] [place] [address] Dr. Devika Morel SARS-CoV-2 (COVID-19) RNA MEJIA+probe Ql (Unsp spec) Negative Normal NEGATIVE [facility] Comment on above: Result Comment: CONF IRMATION BY PCR PENDING PER CDC GUIDELINES/ SYMPTOMATIC PATIENT. Performed By: #### C BC #### [facility] [address] [address] [address] Devika Morel Vital Signs Date Time Vital Sign Value Performing Clinician Facility 03-03-2024 11:32-0500 Body height 162.6 cm Marky Dolce DPM FACFAS Work Phone: [facility] 03-03-2024 11:32-0500 Body mass index (BMI) [Ratio] 28.32 kg/m2 Marky Dolce DPM FAC[facility]AS Work Phone: [facility] 03-03-2024 11:32-0500 Body weight 74.84 kg Marky Dolce DPM [facility]AC[facility]AS Work Phone: [facility] 03-03-2024 11:32-0500 Diastolic blood pressure 77 mm[Hg] Marky Dolce DPM FACFAS Work Phone: [facility] 03-03-2024 11:32-0500 Heart rate 77 /min Marky Dolce DPM FAC[facility]AS Work Phone: [facility] 03-03-2024 11:32-0500 Systolic blood pressure 129 mm[Hg] Marky Dolce DPM FACFAS Work Phone: [facility] 01-17-2024 11:29-0400 Body height 162.6 cm Marky Dolce DPM [facility]AC[facility]AS Work Phone: [facility] 01-17-2024 11:29-0400 Body mass index (BMI) [Ratio] 28.32 kg/m2 Marky Dolce DPM [facility]AC[facility] Work Phone: [facility] 01-17-2024 11:29-0400 Body weight 74.84 kg Marky Dolce DPM [facility]AC[facility] Work Phone: [facility] 01-17-2024 11:29-0400 Diastolic blood pressure 78 mm[Hg] Makry Dolce DPM [facility]AC[facility]AS Work Phone: [facility] 01-17-2024 11:29-0400 Heart rate 78 /min Marky Dolce DPM [facility]AC[facility] Work Phone: [facility] 01-17-2024 11:29-0400 Systolic blood pressure 128 mm[Hg] Marky Dolce DPM FAC[facility]AS Work Phone: [facility] 12-18-2023 09:31-0400 Body height 165.1 cm [facility] 12-18-2023 09:31-0400 Body mass index (BMI) [Ratio] 25.6 kg/m2 [facility] 12-18-2023 09:31-0400 Body temperature 97.9 [degF] [facility] 12-18-2023 09:31-0400 Body weight 69.85 kg [facility] 12-18-2023 09:31-0400 Diastolic blood pressure 68 mm[Hg] [facility] 12-18-2023 09:31-0400 Heart rate 64 /min [facility] 12-18-2023 09:31-0400 Respiratory rate 20 /min [facility] 12-18-2023 09:31-0400 SaO2% (BldA) [Mass fraction] 91 % [facility] 12-18-2023 09:31-0400 Systolic blood pressure 160 mm[Hg] [facility] 06-11-2023 11:24-0400 Body height 165.1 cm [facility] 06-11-2023 11:24-0400 Body mass index (BMI) [Ratio] 25 kg/m2 [facility] 06-11-2023 11:24-0400 Body temperature 97.8 [degF] [facility] 06-11-2023 11:24-0400 Body weight 68.03 kg [facility] 06-11-2023 11:24-0400 Diastolic blood pressure 62 mm[Hg] [facility] 06-11-2023 11:24-0400 Heart rate 72 /min [facility] 06-11-2023 11:24-0400 Respiratory rate 20 /min [facility] 06-11-2023 11:24-0400 SaO2% (BldA) [Mass fraction] 95 % [facility] 06-11-2023 11:24-0400 Systolic blood pressure 159 mm[Hg] [facility] 11-27-2022 11:30-0400 Body height 165.1 cm Fior Dennis Other [facility] Other 11-27-2022 11:30-0400 Body mass index (BMI) [Ratio] 24.79 kg/m2 Fior Dennis Other [facility] Other 11-27-2022 11:30-0400 Body temperature 96.8 [degF] Fior Dennis Other [facility] Other 11-27-2022 11:30-0400 Body weight 67.59 kg Fior Dennis Other [facility] Other 11-27-2022 11:30-0400 Diastolic blood pressure 56 mm[Hg] Fior Dennis Other [facility] Other 11-27-2022 11:30-0400 Respiratory rate 20 /min Fior Dennis Other [facility] Other 11-27-2022 11:30-0400 SaO2% (BldA) [Mass fraction] 94 % Fior Dennis Other [facility] Other 11-27-2022 11:30-0400 Systolic blood pressure 139 mm[Hg] Fior Dennis Other [facility] Other 12-12-2021 12:30-0400 Body height 165.1 cm Fior Dennis Other [facility] Other 12-12-2021 12:30-0400 Body mass index (BMI) [Ratio] 26.29 kg/m2 Fior Dennis Other [facility] Other 12-12-2021 12:30-0400 Body temperature 98.5 [degF] Fior Dennis Other [facility] Other 12-12-2021 12:30-0400 Body weight 71.67 kg Fior Dennis Other [facility] Other 12-12-2021 12:30-0400 Diastolic blood pressure 71 mm[Hg] Fior Dennis Other [facility] Other 12-12-2021 12:30-0400 Respiratory rate 20 /min Fior Dennis Other [facility] Other 12-12-2021 12:30-0400 SaO2% (BldA) [Mass fraction] 92 % Fior Dennis Other [facility] Other 12-12-2021 12:30-0400 Systolic blood pressure 170 mm[Hg] Fior Dennis Other [facility] Other 09-22-2021 11:45-0400 Body height 165.1 cm Jacob Malia Other [facility] Other 09-22-2021 11:45-0400 Body mass index (BMI) [Ratio] 28.12 kg/m2 Jacob Finley Other [facility] Other 09-22-2021 11:45-0400 Body weight 76.66 kg Jacob Finley Other [facility] Other 01-12-2021 10:30-0400 Body height 165.1 cm Fior Dennis Other [facility] Other 01-12-2021 10:30-0400 Body mass index (BMI) [Ratio] 27.29 kg/m2 Fior Dennis Other [facility] Other 01-12-2021 10:30-0400 Body temperature 97.7 [degF] Fior Dennis Other [facility] Other 01-12-2021 10:30-0400 Body weight 74.39 kg Fior Dennis Other [facility] Other 01-12-2021 10:30-0400 Diastolic blood pressure 66 mm[Hg] Fior Dennis Other [facility] Other 01-12-2021 10:30-0400 Respiratory rate 20 /min Fior Dennis Other [facility] Other 01-12-2021 10:30-0400 SaO2% (BldA) [Mass fraction] Fior Dennis Other [facility] Other 01-12-2021 10:30-0400 Systolic blood pressure 137 mm[Hg] Fior Dennis Other [facility] Other Encounters Encounter Date Encounter Type Care Provider Facility Start: 03-26-2024 End: 03-26-2024 Patient encounter procedure [facility] Vanessa RAINEY [facility] Comment on above: Sensorineural hearin g loss (SNHL) of both ears (Primary Dx) Start: 03-26-2024 End: 03-26-2024 ambulatory MARKY BELL Not Available Start: 03-03-2024 End: 03-03-2024 Bamboo flowsheet Marky Bell DPM FACFAS Work Phone: [facility] Start: 03-03-2024 End: 03-03-2024 Bamboo flowsheet Marky Bell DPM FACFAS Work Phone: [facility] Start: 03-03-2024 End: 03-03-2024 Office outpatient visit 15 minutes Marky Bell DPM FACFAS Work Phone: [facility] Comment on above: Hallux valgus of lef t foot (Primary Dx); PAD (peripheral artery disease) (CMS/HCC); 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 Start: 03-03-2024 End: 03-03-2024 ambulatory MARKY BELL Not Available Start: 02-27-2024 End: 02-27-2024 ambulatory Marky Bell Facility:[facility] Start: 02-27-2024 End: 02-27-2024 Patient encounter procedure Marky Bell [facility] Start: 02-25-2024 End: 02-25-2024 Bamboo flowsheet Hayley Beebe CCC-A Work Phone: [facility] Start: 02-25-2024 End: 02-25-2024 Bamboo flowsheet Hayley Joelle Beebe CCC-A Work Phone: [facility] Start: 02-25-2024 End: 02-25-2024 ambulatory HAYLEY BEEBE Not Available Start: 01-17-2024 End: 01-17-2024 Bamboo flowsheet Marky Snyderce DPM FACFAS Work Phone: [facility] Start: 01-17-2024 End: 01-17-2024 Bamboo flowsheet Marky Snyderce DPM FACFAS Work Phone: [facility] Start: 01-17-2024 End: 01-17-2024 Office outpatient visit 25 minutes Marky Bell DPM FACFAS Work Phone: [facility] Comment on above: 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); PAD (peripheral artery disease) (CMS/HCC); Hallux valgus of left foot; Onychomycosis; Pain in right toe(s); Pain in left toe(s) Start: 01-17-2024 End: 01-17-2024 ambulatory MARKY D DOLCE Not Available Start: 12-23-2023 End: 12-23-2023 ambulatory Winter L Alejandro Facility:[facility] Start: 12-19-2023 End: 12-19-2023 Bamboo flowsheet Hayley Beebe CCC-A Work Phone: [facility] Start: 12-19-2023 End: 12-19-2023 Bamboo flowsheet Hayley Joelle Concepción CCC-A Work Phone: [facility] Start: 12-19-2023 End: 12-19-2023 Clinical Support Hayley Beebe CCC-A Work Phone: [facility] Comment on above: Sensorineural hearin g loss (SNHL) of both ears (Primary Dx) Start: 12-19-2023 End: 12-19-2023 ambulatory HAYLEY BEEBE Not Available Start: 12-18-2023 End: 12-18-2023 ambulatory [facility] Work Phone: Start: 12-18-2023 End: 12-18-2023 Patient encounter procedure [facility] Work Phone: Start: 11-14-2023 ambulatory Winter L Alejandro Facility: [facility] Start: 11-11-2023 End: 11-11-2023 ambulatory MARKY D DOLCE Not Available Start: 10-23-2023 End: 10-23-2023 Lab Drop off Winter L Alejandro [facility] Start: 10-23-2023 End: 10-23-2023 ambulatory Winter L Alejandro Facility:[facility] Start: 08-26-2023 End: 08-26-2023 ambulatory MARKY D DOLCE Not Available Start: 06-17-2023 End: 06-17-2023 ambulatory MARKY D DOLCE Not Available Start: 06-11-2023 End: 06-11-2023 ambulatory [facility] Work Phone: Start: 06-11-2023 End: 06-11-2023 Patient encounter procedure [facility] Work Phone: Start: 04-08-2023 End: 04-08-2023 ambulatory MARKY BELL Not Available Start: 01-18-2023 End: 01-19-2023 ambulatory [facility] Start: 11-27-2022 End: 11-27-2022 ambulatory Fior Dennis Other [facility] Other Start: 11-27-2022 Office outpatient vi sit 25 minutes Fior Dennis [facility] Start: 10-12-2022 End: 10-13-2022 ambulatory [facility] Start: 09-26-2022 ambulatory [facility] Start: 09-26-2022 End: 09-27-2022 Evaluation and management of inpatient [facility] Start: 09-07-2022 ambulatory [facility] Start: 09-07-2022 Encounter for other preprocedural examination [facility] Start: 09-07-2022 End: 09-07-2022 ambulatory [facility] Start: 07-12-2022 ambulatory Facility:1 [id number] Start: 07-12-2022 End: 07-12-2022 Patient encounter procedure Winter Allen [facility] Start: 07-12-2022 End: 07-12-2022 Lab Drop off Jason Heredia [facility] Start: 07-06-2022 End: 07-07-2022 ambulatory [facility] Start: 05-28-2022 End: 05-28-2022 ambulatory Fior Dennis Other [facility] Other Start: 05-28-2022 Telephone encounter Fior Dennis [facility] Start: 12-12-2021 End: 12-12-2021 ambulatory Fior Dennis Other [facility] Other Start: 12-12-2021 Office outpatient vi sit 25 minutes Fior Dennis [facility] Start: 11-15-2021 End: 11-15-2021 ambulatory Fior Dennis Other [facility] Other Start: 11-15-2021 Telephone encounter Fior Dennis [facility] Start: 11-13-2021 End: 11-14-[address] INDIA LINDA Facility:[facility] Start: 11-06-2021 End: 11-07-[address] INDIA LINDA Facility:[facility] Start: 10-27-2021 End: 10-27-2021 ambulatory Jaocb Finley Other [facility] Other Start: 10-27-2021 Postop follow up vis it related to original px Jacob Finley [facility] Start: 10-27-2021 End: 10-27-2021 Patient encounter procedure MD India Linda Work Phone: [facility] Start: 09-22-2021 End: 09-22-2021 ambulatory Jacob Finley Other [facility] Other Start: 09-22-2021 FQHC visit new patient Jacob Finley [facility] Start: 09-15-2021 End: 09-16-[address] INDIA LINDA Facility:[facility] Start: 07-18-2021 End: 07-19-[address] INDIA LINDA Facility:[facility] Start: 06-19-2021 End: 06-20-[address] INDIA LINDA Facility:[facility] Start: 01-12-2021 Office outpatient vi sit 25 minutes Fior Dennis [facility] Start: 01-10-2021 End: 01-11-[address] INDIA LINDA Facility:[facility] Start: 12-21-2020 End: 12-21-[address] INDIA LINDA Facility:[facility] Start: 12-15-2020 End: 12-15-[address] INDIA LINDA Facility:[facility] Start: 12-13-2020 End: 12-14-[address] INDIA LINDA Facility:[facility] Start: 11-29-2020 End: 11-29-[address] INDIA LINDA Facility:[facility] Procedures Date Procedure Procedure Detail Performing Clinician Start: 12-19-2023 AUDITORY FUNCTION TESTS Hayley Beebe [facility] Work Phone: Start: 10-27-2021 X-ray of left foot MD Hyun Linda Work Phone: Biopsy of breast Winter Alejandro Colonoscopy Winter Alejandro Comment on above: 08/2015 Inguinal hernia (disorder) J reed Alejandro Tonsillectomy and adenoidectomy Winter Alejandro Total abdominal hysterectomy with bilateral salpingo-oophorectomy Winter Alejandro Comment on above: 07/1997 Plan of Treatment Date Care Activity Detail Author Start: 12-22-2024 ambulatory Ambulatory Facility:[facility] Start: 10-22-2024 Urine screening for protein Diabetes: Urine Protein Screening [facility] Start: 04-10-2024 End: 04-10-2024 Patient encounter procedure [facility] Start: 04-06-2024 ambulatory Ambulatory Facility:[facility] Start: 03-09-2024 End: 03-09-2024 Patient encounter procedure 03/09/2024 3:30 PM EST Office Visit [facility] [address] [facility] [place] [address] [facility] Start: 03-03-2024 End: 03-03-2024 Patient encounter procedure [facility] Comment on above: Arrived Start: 02-25-2024 End: 02-25-2024 Clinical Support [facility] Comment on above: Arrived Start: 01-17-2024 End: 03-18-2024 US.doppler Extremity arteries - bilateral for physiologic artery study at rest and with exercise VASC US PVR/SEGMENTAL PRESSURES LOWER Imaging Routine PAD (peripheral artery disease) (CMS/HCC) Expected: 01/17/2024 (Approximate), Expires: 03/18/2024 [facility] Work Phone: Comment on above: Expected: 01/17/2024 (Approximate), Expires: 03/18/2024 Start: 01-17-2024 End: 01-17-2024 Patient encounter procedure [facility] Comment on above: Arrived Start: 12-19-2023 End: 12-19-2023 Clinical Support 12/19/2023 1:00 PM EDT Clinical Support [facility] [address] [place] [id number] Hayley Beebe, [facility] [address] [place] [address] Arrived [facility] Comment on above: Arrived Start: 11-24-2023 Influenza vaccination Influenza Vacc ine (#1) [facility] Start: 05-16-2016 Pneumococcal Vaccine : 65+ Years (2 of 2 - PCV) Pneumococcal Vaccine: 65+ Years (2 of 2 - PCV) [facility] Start: 1957 Urine screening for protein Diabetes: Urine Protein Screening [facility] Start: 1948 Glaucoma screening Diabetes: R etinopathy Screening [facility] Start: 1938 Hemoglobin A1c measurement Diabetes: Hemoglobin A1C [facility] Start: 1938 Medicare Annual Wellness (AWV) Medicare Annual Wellness (AWV) [facility] Immunizations Immunization Date Immunization Notes Care Provider Fa gucci 05-31-2020 COVID-19 Vaccine Moderna - Documentation Purposes Only Fior Collins Other [facility] 05-02-2020 COVID-19 Vaccine Moderna - Documentation Purposes Only Fior Collins Other [facility] 05-16-2015 pneumococcal polysaccharide vaccine, 23 valent Winter Allen [facility] NEGATED: Highlighted row has not occurred!12-23-2023 influenza virus vaccine, unspecified formulation Marky Bell [facility] Payers Date Payer Category Payer Medicare ANTH MEDICARE ADVANTAGE [facility] MEDICARE ADVANTAGE [id number] 2021-Present [address] [place] [address] [id number] 2021 Medicare (Managed Care) [facility] [id number] 1959 Medicare [id number] [id number] 1959 Medicare [id number] 2.16.840.1.839436.19 1959 Medicare [id number] 1938 Unknown [id number] 2.16840.1.212569.3.579. 2.593 1938 Unknown [id number] 2.16.840.1.733196.3.579. 2.593 1938 Unknown [id number] 2.16.840.1.028798.3.579. 2.593 1938 Unknown [id number] 2.16.840.1.406823.3.579. 2.593 1938 Unknown [id number] 2.16.840.1.417824.3.579. 2.593 1938 Unknown [id number] 2.16.840.1.804227.3.579. 2.593 1938 Unknown [id number] 2.16.840.1.728987.3.579. 2.593 1938 Unknown [id number] 2.16.840.1.458811.3.579. 2.593 1938 Unknown [id number] 2.16.840.1.704336.3.579. 2.593 1938 Unknown [id number] 2.16.840.1.808007.3.579. 2.593 1938 Unknown [id number] 2.16.840.1.482201.3.579. 2.356 1938 Unknown [id number] 2.16.840.1.842744.3.579. 2.727 1938 Unknown [id number] 2.16.840.1.570152.3.579. 2.727 1938 Unknown [id number] 2.16.840.1.432949.3.579. 2.727 1938 Unknown [id number] 2.16.840.1.446395.3.579. 2.727 1938 Unknown [id number] 2.16.840.1.807317.3.579. 2.727 1938 Unknown [id number] 2.16.840.1.047000.3.579. 2.727 1938 Unknown [id number] 2.16.840.1.581470.3.579. 2.727 1938 Unknown [id number] 2.16.840.1.590415.3.579. 2.1259 1938 Unknown [id number] 2.16.840.1.907476.3.579. 2.1259 1938 Unknown [id number] 2.16.840.1.166539.3.579. 2.1259 1938 Unknown [id number] 2.16.840.1.867663.3.579. 2.1259 1938 Unknown [id number] 2.16.840.1.116337.3.579. 2.125 1938 Unknown [id number] 2.16.840.1.933262.3.579. 2.1259 1938 Unknown [id number] 2.16.840.1.461616.3.579. 2.125 1938 Unknown [id number] 2.16.840.1.816714.3.579. 2.1259 1938 Unknown [id number] 2.16.840.1.152425.3.579. 2.1259 Medicare Medicare [id number] Private Health Insurance [facility] [id number] Self-pay Self Pay [id number] Social History Date Type Detail Facility Start: 11-11-2023 End: 03-03-2024 Sex Assigned At [facility] Start: 1940 Sex Assigned At Female [facility] Start: 07-11-2022 End: 12-23-2023 Tobacco smoking status Ex-smoker (finding) [facility] Comment on above: stopped smoking 1991 . Tobacco smoking status Never [facility] Comment on above: stopped smoking 1991 . Start: 11-19-2022 Tobacco smoking status NHIS Never smoked tobacco [facility] Start: 11-19-2022 Tobacco use and exposure Smokeless tobacco non-user [facility] Start: 11-11-2023 End: 03-03-2024 History of Social function [facility] Start: 1940 Sex assigned at Not on file [facility] NEGATED: Highlighted rowStart: MEHREENF History of tobacco use Passive smoker [facility] Clinical Notes 12-23-2020 to 03-26-2024 Vanessa Roa MA - 03/26/2024 1:30 PM ESTMarc Kiel Bell DPM [facility] - 03/03/2024 11:10 AM ESTMarc Kiel Bell DPM [facility] - 01/17/2024 11:00 AM EDTALEX Ma - 12/19/2023 1:00 PM EDT Note Date & Type Note Facility 03-26-2024 History of Present illness Narrative Patient came in today for a follow up on new hearing aids. She arrived at the appointment not wearing the hearing aids. Patient states the aids do not work. I did a listening check and the left aid was not working. The right aid was functioning fine. I changed the left cooler operator wire and the aid was still not working. I believe that the hearing aid might be just so low in charge that it is not working. Will charge and check operation tomorrow. Patient to be notified on status. A follow up was scheduled to pair aids to patient's phone. Cosigned by ALEX Ma at 03/27/2024 12:30 PM EST documented in this encounter [facility] 03-03-2024 History of Present illness Narrative patient: Suraj Huynh : 1940 [facility] SUBJECTIVE This is a 83 y.o. female that presents complaining of a painful hallux valgus deformity noted on the left. She also has a severely contracted hammertoe on the left 2nd digit Has worn wider shoe and anti-inflammatory medications she wishes to have surgical correction of the bunion deformity. He is having difficulty wearing shoes and performing activities of daily living. She recently underwent PVR evaluation which revealed mild arterial occlusive disease on the left not significant. 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 NO EVIDENCE OF SIGNIFICANT ARTERIAL STENOTIC DISEASE INVOLVING THE RIGHT LOWER EXTREMITY. CLINICAL HISTORY: I73.9. COMPARISON: None available. FINDINGS: On the right, the brachial systolic pressure is 164 the high thigh pressure is 250 , index 1.52 the low thigh pressure is 234 , index 1.43 the calf pressure is 175 , index 1.07 the posterior tibial ankle pressure is 184 , index 1.12 the dorsalis pedis ankle pressure is 184 , index 1.12 and the digit pressure is 100 , index 0.61 (with normal 0.7 or greater). The plethysmography waveforms are mild to moderately abnormal. On the left, the brachial systolic pressure is 156 the high thigh pressure is 184 , index 1.12 the low thigh pressure is 183 , index 1.12 the calf pressure is 150 , index 0.91 the posterior tibial ankle pressure is 144 , index 0.88 the dorsalis pedis ankle pressure is 156 , index 0.95 and the digit pressure is 70, index 0.43 (with normal 0.7 or greater). The plethysmography waveforms are mild to moderately abnormal. Allergies: No Known Allergies Past Medical History: Past Medical History: Diagnosis Date Glaucoma ([facility]) 01/18/2024 noted in 08/30/2023 [facility] Consult Note page 1. added per OP CDI. Iron deficiency anemia 07/06/2022 Macular degeneration, wet ([facility]) 01/18/2024 Medications: Current Outpatient Medications: albuterol HFA 90 mcg/act inhaler, INHALE 1 PUFF EVERY 4 HOURS NEEDED, Disp: , Rfl: alendronate (Fosamax) 35 MG tablet, TAKE ONE TABLET BY MOUTH ONCE WEEKLY (EVERY 7 DAYS), Disp: , Rfl: Breo Ellipta 100-25 MCG/ACT aerosol powder , INHALE 1 PUFF BY MOUTH DAILY, Disp: , Rfl: hydroCHLOROthiazide (HYDRODiuril) 12.5 MG tablet, Take 12.5 mg by mouth in the morning., Disp: , Rfl: Review of systems: Constitutional: Denies fever, chills, nausea, vomiting GI: Denies abdominal pain, cramping, loose stool, gastric ulcers Musculoskeletal: Denies low back pain, knee pain, systemic arthritis Neurologic: Denies burning, tingling, transient paralysis OBJECTIVE Physical Examination: DERM: Positive hair growth to b/l feet with good skin turgor noted. Negative openings in skin. No macerations noted interdigitally. Web spaces were clean and dry. No ulcerations were noted. VASC: DP /PT were nonpalpable bilateral. Capillary refill time < 3 seconds Digits 1-5 bilateral NEURO: Bagley Nicola 5.07 monofilament was intact B/L. Vibratory sensation was intact B/L Musculoskeletal: Muscle strength was +5 over 5 all intrinsic and extrinsic muscles tested. Grade 3 hallux abductovalgus with an overriding 2nd digit significant pain with direct palpation of the great toe joint and pain with range of motion of the 1st MPJ. Large bursa formation noted medial Radiographs: AP/MO/LAT: next visit ASSESSMENT 1. Type II diabetes mellitus with neurological manifestations ([facility]) 2. PAD (peripheral artery disease) ([facility]) 3. Hallux valgus of left foot 4. 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 Planned procedures a Morgan bunionectomy sequential reduction hammertoe correction left. I briefly discussed hallux valgus deformities as well as surgical correction of her bunion deformity recommending x-rays in 2 weeks for further discuss her bunion deformity. Recommended PVR evaluation prior to bunion surgery. This will be performed when she returns from vacation. I discussed the procedure in great detail possible fusion versus Morgan bunionectomy she is 83 years old fusion may not be the best option for her we will evaluate once her radiographs are performed. documented in this encounter [facility] 01-17-2024 History of Present illness Narrative patient: Suraj Huynh : 1940 [facility] SUBJECTIVE This is a 83 y.o. female that presents today with a chief complaint of painful elongated nails digits 1 through 10. They cause marked limitation in ambulation due to pain and pressure from shoe gear. Patient is also complaining of a painful hallux valgus deformity noted on the left. Has worn wider shoe and anti-inflammatory medications she wishes to have surgical correction of the bunion deformity. He is having difficulty wearing shoes and performing activities of daily living Allergies: No Known Allergies Past Medical History: Past Medical History: Diagnosis Date Glaucoma ([facility]) 01/18/2024 noted in 08/30/2023 [facility] Note page 1. added per OP CDI. Iron deficiency anemia 07/06/2022 Macular degeneration, wet ([facility]) 01/18/2024 Medications: Current Outpatient Medications: albuterol HFA 90 mcg/act inhaler, INHALE 1 PUFF EVERY 4 HOURS NEEDED, Disp: , Rfl: alendronate (Fosamax) 35 MG tablet, TAKE ONE TABLET BY MOUTH ONCE WEEKLY (EVERY 7 DAYS), Disp: , Rfl: Breo Ellipta 100-25 MCG/ACT aerosol powder , INHALE 1 PUFF BY MOUTH DAILY, Disp: , Rfl: hydroCHLOROthiazide (HYDRODiuril) 12.5 MG tablet, Take 12.5 mg by mouth in the morning., Disp: , Rfl: Review of systems: Constitutional: Denies fever, chills, nausea, vomiting GI: Denies abdominal pain, cramping, loose stool, gastric ulcers Musculoskeletal: Denies low back pain, knee pain, systemic arthritis Neurologic: Denies burning, tingling, transient paralysis OBJECTIVE Physical Examination: DERM: Positive hair growth to b/l feet with good skin turgor noted. Negative openings in skin. No macerations noted interdigitally. Web spaces were clean and dry. No ulcerations were noted. Nails 1 through 10 were thickened elongated yellow and crumbly with subungual debris. They were painful to palpation [id number] on the right [id number] on the left. VASC: DP /PT were nonpalpable bilateral. Capillary refill time < 3 seconds Digits 1-5 bilateral NEURO: Bagley Nicola 5.07 monofilament was intact B/L. Vibratory sensation was intact B/L Musculoskeletal: Muscle strength was +5 over 5 all intrinsic and extrinsic muscles tested. Grade 3 hallux abductovalgus with an overriding 2nd digit significant pain with direct palpation of the great toe joint and pain with range of motion of the 1st MPJ. Large bursa formation noted medial Radiographs: AP/MO/LAT: next visit Diagnostic ultrasound: ASSESSMENT 1. PAD (peripheral artery disease) ([facility]) 2. Type II diabetes mellitus with neurological manifestations ([facility]) 3. Hallux valgus of left foot 4. Onychomycosis 5. Pain in right toe(s) 6. Pain in left toe(s) PLAN The patient was educated on proper foot care as well as the etiology of onychomycosis. I educated the patient on proper shoe gear as well. Today the nails were debrided both in length and thickness 1 through 10. I briefly discussed hallux valgus deformities as well as surgical correction of her bunion deformity recommending x-rays in 2 weeks for further discuss her bunion deformity. Recommended PVR evaluation prior to bunion surgery. This will be performed when she returns from vacation. I discussed the procedure in great detail possible fusion versus Morgan bunionectomy she is 83 years old fusion may not be the best option for her we will evaluate once her radiographs are performed documented in this encounter [facility] 12-23-2023 Note Patient Education Emergency Medicine Heart Attack A heart attack occurs when blood and oxygen supply to the heart is cut off. A heart attack can cause damage to the heart that cannot be fixed. A heart attack is also called a myocardial infarction, or HI. If you think you are having a heart attack, do not wait to see if the symptoms will go away. Get medical help right away. What are the causes? This condition may be caused by: ? A fatty substance (plaque) in the blood vessels (arteries). This can block the flow of blood to the heart. ? A blood clot in the blood vessels that go to the heart. The blood clot blocks blood flow. ? An abnormal heartbeat. ? Some diseases, such as problems in red blood cells (anemia)orproblems in breathing (respiratory failure). ? Tightening (spasm) of a blood vessel that cuts off blood to the heart. ? A tear in a blood vessel of the heart. Other causes may include: ? Using drugs such as cocaine or methamphetamine. ? Low blood pressure. What increases the risk? ? Aging. The risk gets higher as you get older. ? Having a personal or family history of chest pain, heart attack, stroke, or narrowing of the arteries in the legs, arms, head, or stomach (peripheral vascular disease). ? Having taken chemotherapy or immune-suppressing medicines. ? Being male. ? Being overweight or obese. ? Having any of these conditions: ? High blood pressure. ? High cholesterol. ? Diabetes. ? Making lifestyle choices such as: ? Drinking too much alcohol. ? Not getting regular exercise. ? Smoking. What are the signs or symptoms? ? Chest pain. It may feel like: ? Crushing or squeezing. ? Tightness, pressure, fullness, or heaviness. ? Pain in the arm, neck, jaw, back, or upper body. ? Heartburn. ? Upset stomach (indigestion). ? Shortness of breath. ? Feeling like you may vomit (nauseous). ? Cold sweats. ? Sudden light-headedness, dizziness, or passing out. ? Feeling tired. How is this treated? A heart attack must be treated as soon as possible. Treatment may include: ? Medicines to: ? Break up or dissolve blood clots. ? Thin your blood and help prevent blood clots. ? Treat blood pressure. ? Improve blood flow to the heart. ? Reduce pain. ? Reduce cholesterol. ? Procedures to widen a blocked artery and keep it open. ? Open heart surgery. ? Making your heart strong again (cardiac rehabilitation) through exercise, education, and counseling. Follow these instructions at home: Medicines ? Take iste-unk-hwnayye and prescription medicines only as told by your doctor. ? Do not take these medicines unless your doctor says it is okay: ? NSAIDs, such as ibuprofen, naproxen, or celecoxib. ? Any vitamins or supplements. ? Hormone replacement therapy that has estrogen with or without progestin. ? If you are taking blood thinners: ? Talk with your doctor before taking any medicines that have aspirin or NSAIDs, such as ibuprofen. ? Take medicines exactly as told. Take them at the same time each day. ? Avoid doing things that could hurt or bruise you. Take action to prevent falls. ? Wear an alert bracelet or carry a card that shows you are taking blood thinners. Lifestyle ? Do not smoke or use any products that contain nicotine or tobacco. If you need help quitting, ask your doctor. ? Avoid secondhand smoke. ? Exercise regularly. Ask your doctor about a cardiac rehab program. ? Eat heart-healthy foods. Your doctor will tell you what foods to eat. ? Stay at a healthy weight. ? Learn ways to lower your stress level. ? Do not use illegal drugs. Alcohol use ? Do not drink alcohol if: ? Your doctor tells you not to drink. ? You are , may be , or are planning to become . ? If you drink alcohol: ? Limit how much you have to: ? 0?1 drink a day for women. ? 0?2 drinks a day for men. ? Know how much alcohol is in your drink. In the [place] one drink equals one 12 oz bottle of beer (355 mL), one 5 oz glass of wine (148 mL), or one 1? oz glass of hard liquor (44 mL). General instructions ? Work with your doctor to treat other problems you may have, such as diabetes or high blood pressure. ? Get screened for depression. Get treatment if needed. ? Keep your vaccines up to date. Get the flu shot (influenza vaccine) every year. ? Keep all follow-up visits. Contact a doctor if: ? You feel very sad. ? You have trouble doing your daily activities. ? You get light-headed or dizzy. Get help right away if: ? You have sudden, unexplained discomfort in your chest, arms, back, neck, jaw, or upper body. ? You have shortness of breath. ? You have sudden sweating or clammy skin. ? You feel like you may vomit or you vomit. ? You feel tired or weak. ? You feel your heart beating fast. ? You feel your heart skipping beats. ? You (more content not included)... [facility] 12-19-2023 History of Present illness Narrative History: Pt reports gradual decrease in her hearing, both ears. Her family also has notice she has difficulty hearing. Pt denies tinnitus, excessive noise exposure, otalgia, and chronic middle ear problems. Otoscopic Exam: Ear canal clear and TM intact AU Pure Tone Audiometry Pt claustrophobic, cornell door open during test Right Ear: Mild sloping to profound sensorineural hearing loss above 250 Hz Left Ear: Mild sloping to severe sensorineural hearing loss Speech Audiometry Right SRT = 40 dB and word discrimination score at 65 dBHL (masked) = 76% Left SRT = 45 dB and word discrimination score at 65 dBHL (masked) = 96% Impressions: Pt is good candidate for hearing aids and is eligible for hearing aids through her [facility] Benefit. Hearing Aid Discussion: Pt is eligible for 2 advanced rechargeable SAMY aids for $250. She likes black color and needs 1M receivers. Explained [facility] process and told pt to expect call from [facility] within 30 days. [facility] will collect payment of $250 over the phone. Pt asked about payment plan. I told her to ask [facility] when they call her. Pt will not owe [facility] anything for her hearing aid. Pt is visiting her family in [place] from the end of December to the end of January. Scheduled fitting 02-25-24. documented in this encounter [facility] 01-18-2023 Note Subjective 09/26/2022 - Total Hip Arthroplasty, Posterolateral - Right 01/18/23 Suraj Huynh is a 82 y.o. female s/p 09/26/2022 . Patient is a 82-year-old female with s/p right primary total hip arthroplasty done on 26 September 2022 and is now almost 3-1/2 months following her surgery. She patient has been ambulating full weightbearing without any major support. She denies any major groin pain. She does not have any thigh pain. Overall states she is doing well. She denies any pain at today's visit. Patient denies any fevers or chills. No redness or drainage around the dressing. No calf pain or tenderness. She is happy with her outcome at this point in time. She has been using a shoe raise for her left side as she does state her right leg feels longer than the left at times. 01/18/23 This is an 82 y/o female s/p NANCY on 09/26/2022. She is doing extremely well at this time with no pain. She has stopped taking her Mobic and only takes a tylenol PRN. She denies any other problems and has been walking. She sometimes gets pain in her back when she lays down, but not in her hip. She never did go to physical therapy, but did hip exercises at home. ROS: otherwise negative unless specified in subjective Patient History Past Surgical History: Procedure Laterality Date BREAST BIOPSY COLONOSCOPY HYSTERECTOMY INGUINAL HERNIA REPAIR KNEE SURGERY Bilateral TONSILECTOMY, ADENOIDECTOMY, BILATERAL MYRINGOTOMY AND TUBES Past Medical History: Diagnosis Date Allergic rhinitis Anemia IRON DEFICIENCY Aortic stenosis, moderate Asthma COPD (chronic obstructive pulmonary disease) (CMS/HCC) Diastolic dysfunction without heart failure Hyperlipidemia Hypoxia Impingement of shoulder Macular degeneration OA (osteoarthritis) Pulmonary emphysema (CMS/HCC) Pulmonary hypertension (CMS/HCC) Objective General: NAD CVS: extremities well perfused Pulm: breathing comfortably on room air Psych: appropriate mood and affect Exam R hip: Surgical incision is healed well, no signs of any infection or inflammation seen. No hematoma seen. Flexion possible to about 90 degrees abduction 35 degrees. Adduction 15 degrees internal rotation 10 to 15 degrees external rotation 35 degrees. - Reasonable post-surgical ROM - No LE swelling - Sensation grossly intact distally Imaging: R hip x-ray performed today 01/18/2023 in clinic today reviewed by myself and interpreted independently and shows R hip s/p NANCY with intact hardware. No evidence of any new fracture or dislocation seen. Imaging reviewed with patient. Assessment/Plan Suraj Huynh is a 82 y.o. female s/p Total Hip Arthroplasty, Posterolateral - Right (09/26/2022). Overall patient is progressing well postoperatively. Patient is happy with her progress. We will see her back in 1 year or earlier if required. She was reminded to take oral antibiotics prior to dental work or colonoscopy in future. Zaida Castillo, MS4 By using the attestations below, the signing clinician agrees that I have read and verify that the documentation has been personally reviewed by me and ensure that the documentation accurately reflects the encounter. GC: I personally saw this patient on the day of the encounter, performed the sánchez portion(s) of the service and participated in the management and confirm the medical student's documentation. Please note there may be an additional personal documentation from me. Dr. Rudy Richardson MD [facility] [employer] [facility] orthopedic surgery-[facility]. [facility] 11-27-2022 Evaluation note Encounter Date Diagnosis Assessment Notes Nov, Asthma with COPD (ICD-10 - J44.9) Nov, Diastolic dysfunction without heart failure (ICD-10 - I51.9) Nov, Other Increase activity as you are post hip replacement [employer] Other 07-21-2023 NoteSubjective 09/26/2022 - Total Hip Arthroplasty, Posterolateral - Right 10/12/22 Suraj Huynh is a 81 y.o. female s/p 09/26/2022 Total Hip Arthroplasty, Posterolateral - Right. Patient overall states she is doing well. She denies any pain at today's visit. States she will get pain over her incision site that is worse at night. She takes tylenol for this with some relief. Patient denies any fevers or chills. No redness or drainage around the dressing. No calf pain or tenderness. She has been walking with a walker without issue and working with home therapies. She does state her right leg feels longer than the left at times. ROS: otherwise negative unless specified in subjective Patient History Past Surgical History: Procedure Laterality Date BREAST BIOPSY COLONOSCOPY HYSTERECTOMY INGUINAL HERNIA REPAIR KNEE SURGERY Bilateral TONSILECTOMY, ADENOIDECTOMY, BILATERAL MYRINGOTOMY AND TUBES Past Medical History: Diagnosis Date Allergic rhinitis Anemia IRON DEFICIENCY Aortic stenosis, moderate Asthma COPD (chronic obstructive pulmonary disease) (CMS/HCC) Diastolic dysfunction without heart failure Hyperlipidemia Hypoxia Impingement of shoulder Macular degeneration OA (osteoarthritis) Pulmonary emphysema (CMS/HCC) Pulmonary hypertension (CMS/HCC) Objective General: NAD CVS: extremities well perfused Pulm: breathing comfortably on room air Psych: appropriate mood and affect Exam R hip: -Surgical incision is clean, dry and intact. No drainage or erythema - Reasonable post-surgical ROM - No LE swelling - Sensation grossly intact distally - Brisk capillary refill No major hematoma seen, patient walks without an return to the. Feels mild limb length inequality right side longer as compared left side. No groin pain noted. Patient has no pain in the trochanteric region. Ankle and toe range of motion well-maintained, no signs of deep vein thrombosis seen. Imaging: R hip x-ray performed today in clinic today reviewed by myself and interpreted independently and shows R hip s/p NANCY with intact hardware. No evidence of any new fracture or dislocation seen. These were explained to the patient. 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 Part of the limb length inequality may be contributed to the pelvic obliquity. Assessment/Plan Suraj Huynh is a 81 y.o. female s/p Total Hip Arthroplasty, Posterolateral - Right (09/26/2022). Overall patient is progressing well postoperatively. Patient was reassured that the overall progress is adequate. She may use a shoe raise on the left side of about half inch to see if this equalizes her. If this helps her she may continue the same. We will be on falls precautions we will continue with posterior precautions. Patient was advised to wean off the use of walker to use of cane in the opposite hand. If she is able to walk without the walker since she is off the narcotic medication she may start to drive. -Continue posterior hip precautions -Referral for outpatient PT -Patient counseled to continue progressing from ambulating with walker to cane and eventually without AD, prescription for cane given today -Patient advised to wear shoe lift on left side if it continues to feel like her right leg is longer, prescription for this was given at today's visit as well -Follow up in 3 months Patient is happy with her progress. We will see her back in 3 months time or earlier if required. She was reminded to take oral antibiotics prior to dental work or colonoscopy in future. Zaida May, PGY-3 PM&R By using the attestations below, the signing clinician agrees that I have read and verify that the documentation has been personally reviewed by me and ensure that the documentation accurately reflects the encounter. GC: I personally saw this patient on the day of the encounter, performed the sánchez portion(s) of the service and participated in the management and confirm the resident's documentation. Please note there may be an additional personal documentation from me. Dr. Rudy Richardson MD [facility] [employer] [facility] orthopedic surgery-[facility]. [facility]07-07-2023 NoteOrtho body piercer, Edda, was able to get in touch with the family. Edda sent in further DME scripts and called pt's [facility] company to have OT eval pt. No further needs from SW. Available as needed.[facility] 09-28-2022 NoteSW attempted to call pt's family member, as she had left a message on OTM VM. SW unable to reach and left message. SW also notified ortho case investigator RN who also attempted to call family.[facility]07-06-2023 Note Sent the shower chair script to [facility]07-06-2023 NoteMet with the patient earlier today regarding her discharge plan. She is agreeable to home healthcare. [facility] has accepted. Sent the AVS.[facility]07-06-2023 NotePhysical Therapy Physical Therapy Evaluation & Treatment Patient Name: Suraj Huynh : 1940 Today's Date: 09/27/2022 Patient is an 81 y./o. female admitted to [facility] on 09/26/2022 for an elective right posterolateral approach total hip arthroplasty. PMH significant for R hip OA and asthma. General Subjective: Patient in supine upon arrival and agreeable to PT eval. Upon conclusion of PT eval, patient asymptomatic and saturating at 82%, RN notified. Patient Active Problem List Diagnosis Osteoarthritis of hip Hyperlipidemia Hypoxia Impingement of shoulder Iron deficiency anemia COPD (chronic obstructive pulmonary disease) (CMS/HCC) Right hip pain Primary osteoarthritis of right hip Past Medical History: Diagnosis Date Allergic rhinitis Anemia IRON DEFICIENCY Aortic stenosis, moderate Asthma COPD (chronic obstructive pulmonary disease) (CMS/HCC) Diastolic dysfunction without heart failure Hyperlipidemia Hypoxia Impingement of shoulder Macular degeneration OA (osteoarthritis) Pulmonary emphysema (CMS/HCC) Pulmonary hypertension (CMS/HCC) Past Surgical History: Procedure Laterality Date BREAST BIOPSY COLONOSCOPY HYSTERECTOMY INGUINAL HERNIA REPAIR KNEE SURGERY Bilateral TONSILECTOMY, ADENOIDECTOMY, BILATERAL MYRINGOTOMY AND TUBES Pain Pain Assessment Pain Assessment: 0-10 Pain Score: 5 - Moderate pain Pain Type: Surgical pain Pain Location: Hip Pain Orientation: Right Home Living Home Living Type of Home: Apartment Lives With: Alone (apartment located across from son's backyard. sister in law plans to stay 24/7 following d/c) Home Adaptive Equipment: Oxygen, Walker rolling (2L O2 NC) Home Layout: One level Home Access: Stairs to enter without rails Entrance Stairs-Number of Steps: 1 Bathroom Shower/Tub: Tub/shower unit Bathroom Toilet: Handicapped height Bathroom Equipment: Grab bars in shower (expressed interest in SC, hand held shower, and grab bars near toilet) Prior Level of Function Prior Function Level of Humphreys: Independent with ADLs and functional transfers, Independent with homemaking with ambulation Prior Functional Mobility: Independent without device Objective General Visit Information: PT Last Visit PT Received On: 09/27/22 General Subjective: Patient in supine upon arrival and agreeable to PT eval. Upon conclusion of PT eval, patient asymptomatic and saturating at 82%, RN notified. Precautions Precautions Medical Precautions: abduction pillow, telemetry, IV Post-Surgical Precautions: Posterolateral NANCY Vision - Basic Cognition Cognition Overall Cognitive Status: Within Functional Limits Orientation Level: Oriented X4 Following Commands: Follows all commands and directions without difficulty Safety Judgment: Good awareness of safety precautions General Assessment General Assessments Activity Tolerance Endurance: Stage IV Coordination Movements are Fluid and Coordinated: Yes Dynamic Sitting Balance Dynamic Sitting Balance-Level of Assistance: Independent Static Standing Balance Static Standing-Level of Assistance: Distant supervision (RW) Dynamic Standing Balance Dynamic Standing Balance-Level of Assistance: Close supervision (RW) Functional Assessments Bed Mobility Bed Mobility: Yes Bed Mobility 1 Bed Mobility From 1: Supine Bed Mobility Type 1: To and from Bed Mobility to 1: Short sit Level of Assistance 1: Minimum assistance (Min A for LE management) Transfers Transfer: Yes Transfer 1 Transfer From 1: Sit Transfer Type 1: To and from Transfer to 1: Stand Technique 1: Sit to stand, Stand to sit Transfer Device 1: rolling walker Transfer Level of Assistance 1: Distant supervision Stairs Stairs: Yes Stairs Rails 1: None (Comment) (step) Device 1: Rolling walker Assistance 1: Close supervision Comment/Number of Steps 1: 1 step up and down. Cues for leading with the nonsugical LE up and leading with the surgical LE down Extremity Assessments RUE Assessment RUE Assessment: Within Functional Limits LUE Assessment LUE Assessment: Within Functional Limits RLE Assessment RLE Assessment: Within Functional Limits LLE Assessment LLE Assessment: Within Functional Limits Outcome Assessments 6 Clicks (Mobility) Help from another person turning from your back to your side while in a flat bed without using bedrails: A little Help from another person moving from lying on your back to sitting on the side of a flat bed without using bedrails: A little Help from another person moving to and from a bed to a chair (including a wheelchair): A little Help from another person standing up from a chair using your arms (e.g. wheelchair or bedside chair): None Help from another person to walk in hospital room: A little Help from another person climbing 3-5 steps with a railing: A little Mobility 6 Clicks T-Score: 19 (more content not included)...[facility]07-06-2023 Note09/27/22 1026 Admission Assessment Questions Verify insurance with patient Yes Do you understand medical disease or what brought you into the hospital? Yes Who is your current PCP? Anzar Do you understand why you are taking your current medications? Yes Are you taking your medications as prescribed? Yes Does the patient have a case investigator assigned to them through their insurance? No Living Arrangement (Current/Prior to Hospitalization) Private residence Does the patient have history of HHC or SNF? No Was patient reminded that goal for discharge is 11am? Yes Does the patient have transportation at discharge? Yes (sister) Type of Residence/Post Acute Needs Private residence Is PT/OT appropriate? Yes Is PT/OT ordered? Yes Is SW consult appropriate? Yes Is [facility] consult [facility]ational Therapy Occupational Therapy Evaluation Patient Name: Suraj Huynh : 1940 Today's Date: 09/27/2022 Time In: 751 Time Out: 833 Total Hip Arthroplasty, Posterolateral (R) 09/26/22 General Subjective: friendly and cooperative, reports her sister plans to stay with her 15/10 upon d/c Patient Active Problem List Diagnosis Osteoarthritis of hip Hyperlipidemia Hypoxia Impingement of shoulder Iron deficiency anemia COPD (chronic obstructive pulmonary disease) (CMS/HCC) Right hip pain Primary osteoarthritis of right hip Past Medical History: Diagnosis Date Allergic rhinitis Anemia IRON DEFICIENCY Aortic stenosis, moderate Asthma COPD (chronic obstructive pulmonary disease) (CMS/HCC) Diastolic dysfunction without heart failure Hyperlipidemia Hypoxia Impingement of shoulder Macular degeneration OA (osteoarthritis) Pulmonary emphysema (CMS/HCC) Pulmonary hypertension (CMS/HCC) Past Surgical History: Procedure Laterality Date BREAST BIOPSY COLONOSCOPY HYSTERECTOMY INGUINAL HERNIA REPAIR KNEE SURGERY Bilateral TONSILECTOMY, ADENOIDECTOMY, BILATERAL MYRINGOTOMY AND TUBES Precautions Precautions LE Weight Bearing Status: WBAT, Right (posterior hip precautions) Medical Precautions: (NANCY posterior) Pain Pain Assessment Pain Score: 3 (right hip) Cognition Cognition Overall Cognitive Status: Within Functional Limits General Assessment General Assessment Hearing: (mild [place]) Home Living Home Living Type of Home: Apartment Lives With: Alone (sonlives near and sister plans to stay 24/7 upon d/c) Home Adaptive Equipment: Oxygen, Walker rolling (2LO2 @ HS, rts, gb in shower) Home Layout: One level Home Access: Stairs to enter without rails (1) Bathroom Shower/Tub: Tub/shower unit Prior Level of Function Prior Function Level of Humphreys: Independent with ADLs and functional transfers, Independent with homemaking with ambulation (drives) Prior Functional Mobility: Independent without device Prior IADLs IADL History Homemaking Responsibilities: Yes Dynamic Sitting Balance Dynamic Sitting Balance Dynamic Sitting Balance-Level of Assistance: Independent Static Standing Balance Static Standing Balance Static Standing-Level of Assistance: Distant supervision (rw) Dynamic Standing Balance Dynamic Standing Balance Dynamic Standing Balance-Level of Assistance: Close supervision (rw) ADL ADL UE Dressing Assistance: Independent LE Dressing Assistance: Minimal (due to hip precautions) Transfers Transfers Transfer: (in chiar upon arrival, sba sit to stand with RW: 40 feet X3 and return to chair) Objective General Assessments Activity Tolerance Endurance: Stage II Vision - Basic Assessment Current Vision: No visual deficits Sensation Light Touch: No apparent deficits Coordination Movements are Fluid and Coordinated: Yes Extremity Assessments RUE Assessment RUE Assessment: Within Functional Limits LUE Assessment LUE Assessment: Within Functional Limits Outcome Assessments AM-PAC 6 Clicks Putting on and taking off regular lower body clothing?: A Little (Min Assist/Contact Guard/Supervision) Bathing(Including washing,rinsing,drying)?: A Little (Min Assist/Contact Guard/Supervision) Toileting, which includes using the toilet,bedpan,or urinal?: A Little (Min Assist/Contact Guard/Supervision) Putting on and taking off regular upper body clothing?: None (Independent) Taking care of personal grooming such as brushing teeth?: None (Independent) Eating meals?: None (Independent) Total Score OT AMPAC: 21 Assessment/Plan OT Assessment OT Impairments: Decreased ADL status, Decreased endurance, Decreased functional mobility OT Assessment/CAMELIA Summary: (needs skilled OT due to weakness from R NANCY) Prognosis: Good Evaluation/Treatment Tolerance: Patient limited by fatigue Medical Staff Made Aware: Yes OT Education/Comments: (NANCY posterior precautions, general home safety and ae/dme needs with good demo and vebal teach back) Plan Level of assist: 1 assist Treatment Interventions: ADL retraining, Functional transfer training, Endurance training, Patient/family training, Neuromuscular reeducation, Compensatory technique education OT Plan: Skilled OT OT Frequency: 1 time per day until discharge & PRN OT Discharge Recommendations: Home OT, With 24hr supervision Equipment Recommended: (sockaid, sc, [facility], emergency alert) OT - OK to Discharge: Yes OT Goals Multi-Disciplinary Problems (from Occupational Therapy) Active Problems Problem: Balance Start Date: 09/27/22 Goal Start Date Expected End Date End Date LTG - Patient will maintain standing balance to allow for safe mobility 09/27/22 10/11/22 -- Problem: Bathing Start Date: 09/27/22 Goal Start Date Expected End Date End Date LTG - Patient will utilize adaptive techniques to bathe b (more content not included)...[facility]07-06-2023 Note Attestation signed by Rudy Richardson MD at 09/27/2022 2:01 PM I did not personally examine the patient. I discussed the case with the resident/fellow DR Jani Ceja MD. Teaching Physician's Revisions: NONE Orthopaedic Surgery Orthopaedic Surgery Progress Note Date: 09/27/2022 Surgery: 09/26/2022 - Total Hip Arthroplasty, Posterolateral (R) SUBJECTIVE: NAEON. Patient is feeling well, she has been getting out of bed without issue. She feels mild incisional discomfort. Denies fevers, chills, N/V, shortness of breath. Denies numbness or tingling. OBJECTIVE BP 118/59 (BP Location: Right arm, Patient Position: Lying) Pulse 72 Temp 36.2 ???C (97.2 ???F) (Temporal) Resp 20 Ht 1.626 m (5' 4.02 ) Wt 70.1 kg (154 lb 8.7 oz) LMP (LMP Unknown) SpO2 97% BMI 26.51 kg/m??? General: A/O x3, resting comfortably in bed, cooperative MSK: RLE - Mildly tender to palpation along posterolateral hip along incision, has dressing in place - Compartments soft / compressible - SILT in superficial peroneal, deep peroneal, sural, saph nerve dist - Motor function intact in tibial, deep peroneal, superficial peroneal dist - Brisk capillary refill Labs: Lab Results Component Value Date WBC 9.67 09/27/2022 HGB 10.3 (L) 09/27/2022 HCT 33.5 (L) 09/27/2022 MCV 88.4 09/27/2022 PLT 286 09/27/2022 Lab Results Component Value Date CALCIUM 9.1 09/27/2022 NA 136 09/27/2022 K 3.5 09/27/2022 CO2 31 09/27/2022 CL 99 09/27/2022 BUN 17 09/27/2022 CREATININE 0.61 09/27/2022 Lab Results Component Value Date INR 0.96 09/07/2022 Imaging: Imaging for last 3 days: XR hip right 2 or 3 views Result Date: 09/26/2022 Postoperative changes with right hip arthroplasty device in place. Electronically signed: Feroz Hamilton. No CT results found for the past 3 days No MRI results found for the past 3 days ASSESSMENT: Suraj Huynh is a 81 y.o. female with HLD, COPD, KENNY. 1 Day Post-Op Total Hip Arthroplasty, Posterolateral (R) PLAN Weightbearing as tolerated RLE Abx: Keflex 500 mg four times daily for 7 days DVT ppx: Lovenox 40 mg subcutaneous daily for 2 weeks PT/OT Pain control: Oxycodone prn, acetaminophen prn Dressing: Do not remove before follow-up visit in 2 weeks No further surgical interventions, clear for discharge from orthopedic standpoint. Please call with further concerns Jani Ceja MD Orthopaedic Surgery, PGY-1 Ortho Pager [phone] 09/27/22 7:57 AM I am available via Interhyp 6a-6p. May contact the on-call resident with any concerns via the Orthopaedic pager at any time.[facility]07-05-2023 NotePatient: Suraj Huynh Procedure Summary Date: 09/26/22 Room / Location: [facility] OPERATING ROOM 02 / [facility] Operating Room Anesthesia Start: 1211 Anesthesia Stop: 1447 Procedure: Total Hip Arthroplasty, Posterolateral (Right: Hip) Diagnosis: Primary osteoarthritis of right hip Age-related osteoporosis without fracture Lumbosacral radiculopathy (Primary osteoarthritis of right hip [M16.11]) Surgeons: Rudy Richardson MD Responsible Provider: Mc Gan MD Anesthesia Type: general ASA Status: 4 Anesthesia Type: general Vitals Value Taken Time BP 166/70 09/26/22 1540 Temp 36.5 ???C (97.7 ???F) 09/26/22 1441 Pulse 66 09/26/22 1544 Resp 10 09/26/22 1544 SpO2 94 % 09/26/22 1544 Vitals shown include unvalidated device data. Anesthesia Post Evaluation Patient location during evaluation: PACU Level of consciousness: awake Pain management: adequate Airway patency: patent Cardiovascular status: acceptable Respiratory status: acceptable Hydration status: acceptable Patient is hemodynamically stable and is able to be discharged from PACU per anesthesia protocol. No notable events documented.[facility]07-05-2023 Note Patient: Suraj Huynh Procedure Summary Date: 09/26/22 Room / Location: [facility] OPERATING ROOM 02 / [facility] Operating Room Anesthesia Start: 1210 Anesthesia Stop: Procedure: Total Hip Arthroplasty, Posterolateral (Right: Hip) Diagnosis: Primary osteoarthritis of right hip (Primary osteoarthritis of right hip [M16.11]) Surgeons: Rudy Richardson MD Responsible Provider: Mc Gan MD Anesthesia Type: general ASA Status: 4 Anesthesia Post Transport Note Transport to: PACU O2 Route: room air Patient Monitor: direct observation Transport: uneventful Patient condition is: [facility] Note Airway Date/Time: 09/26/2022 12:29 PM Urgency: elective Airway not difficult General Information and Staff Patient location during procedure: OR Anesthesiologist: Geovanny Menjivar MD Resident/MAINTENANCE HELPER/PAT: Khoa Sánchez MD Performed: other anesthesia staff, anesthesiologist and resident/MAINTENANCE HELPER/CAA Learner assisted: Genoveva Chaves MS4 Indications and Patient Condition Indications for airway management: anesthesia and airway protection Spontaneous Ventilation: absent Sedation level: deep Preoxygenated: yes Patient position: sniffing Mask difficulty assessment: 1 - vent by mask Final Airway Details Final airway type: endotracheal airway Successful airway: ETT Cuffed: yes Successful intubation technique: direct laryngoscopy Facilitating devices/methods: intubating stylet Endotracheal tube insertion site: oral Blade: Luiza Blade size: #3 ETT size (mm): 7.0 Cormack-Lehane Classification: grade I - full view of glottis Placement verified by: chest auscultation and capnometry Measured from: lips ETT to lips (cm): 21 Number of attempts at approach: 1 Number of other approaches attempted: 0 Additional Comments Intubated by Jone Chaves M4 under the direct supervision of Dr. Whyte of [facility]07-05-2023 NoteArterial Line: Date/Time: 09/26/2022 12:25 PM An arterial line was placed Procedure performed using surface landmarks.in the OR for the following indication(s): continuous blood pressure monitoring. A 20 G (size), 1 and 3/4 inch (length), Angiocath (type) catheter was placed, Seldinger technique used , into the Left radial artery, secured by Tegaderm and tape. Events: patient tolerated procedure well with no complications. Additional notes: Post induction. Patient under GA. Staffing Performed: resident/ORLIN/PAT Anesthesiologist: Geovanny Menjivar MD Resident/MAINTENANCE HELPER: Khoa Sánchez MD Performed by: Khoa Sánchez MD Authorized by: Geovanny Menjivar MDR[facility]2023 NotePatient: Suraj Huynh Procedure Information Date/Time: 09/26/22 1130 Procedure: Total Hip Arthroplasty, Posterolateral (Right: Hip) - Emigdio NOTIFIED 09/17 CLAY Location: [facility] OPERATING ROOM 02 / [facility] Operating Room Surgeons: Rudy Richardson MD Relevant Problems Pulmonary (+) COPD (chronic obstructive pulmonary disease) ([facility]) Clinical information reviewed: Tobacco Allergies Meds Med Hx Surg Hx OB Status Fam Hx Soc Hx Physical Exam Airway Mallampati: II TM distance: >3 FB Neck ROM: full Cardiovascular Rhythm: regular Rate: normal Dental Pulmonary Breath sounds clear to auscultation Abdominal - normal exam Anesthesia Plan ASA 4 general Patient was not previously instructed to abstain from smoking on day of procedure. Patient did not smoke on day of procedure. intravenous induction Postoperative administration of opioids is intended. Anesthetic plan and risks discussed with patient. Use of blood products discussed with who consented to blood products. Plan discussed with CAA. Additional Equipment RequestsReg[facility]06-[facility] Note Orthopedic Surgery Subjective Pain and Follow-up of the Right Hip 09/07/22 Suraj Huynh is a 81 y.o. female presenting for preoperative visit for right hip replacement surgery. 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 Patient continues to have multiple falls, has pain at night, gets better after she starts moving, if turns leg a certain way it really hurts. She hasn't done therapy recently due to pain and being unable to perform the exercises, but she has done therapy in the past for cardiac reasons. She had an injection to the right greater trochanter which did not help her. Put off surgery due to macular degeneration and was getting injections. She has asthma and copd, she sees a photographer portrait. Wears oxygen at night. Denies heart attacks, strokes, diabetes, kidney issues. Lives at home alone in a small apartment but she is right across the street from her son. She states she does not use a walker or cane at baseline but has a walker for when her hip pain does get super bad. She does state that she broke her foot approximately a year ago. PCP Dr. linda Review of Systems unremarkable aside from what is noted in HPI Review of Systems positive for: Patient History Past Surgical History: Procedure Laterality Date HYSTERECTOMY KNEE SURGERY Bilateral TONSILECTOMY, ADENOIDECTOMY, BILATERAL MYRINGOTOMY AND TUBES Past Medical History: Diagnosis Date Asthma Objective General: Body mass index is 26.43 kg/m???. No acute distress, comfortable Respiratory: Unlabored breathing with normal rate, no cough Cardiovascular: Warm well perfused extremities Psych: Appropriate mood behavior Right Hip: Inspection- no ecchymosis, no edema Tender to palpation over Greater trochanter and deep within the groin Hip ROM: Internal Rotation 0??? External Rotation 25??? Flexion 110??? Positive Trendelenburg lurch noted. Positive antalgia. Positive logroll test, positive Stinchfield sign. Strength: Hip Flexion 5/5 Hip Extension 5/5 Hip Abduction 5/5 Hip Adduction 5/5 Knee Flexion 4/5 Knee Extension 4/5 Sensation: intact over superficial peroneal, deep peroneal and tibial nerve distributions Patient is able to get up out of the chair without any assistance and walk over to the table without significant debility or unsteadiness Walks with antalgia and positive Trendelenburg lurch. Imaging personally reviewed: X-rays obtained today of the right hip multiple views that were taken today were seen by myself and read. Independently which show the patient demonstrate severe joint space narrowing compared to the right side with subchondral sclerosis cystic changes and osteophyte formation, indicative of [id number]-bfdy arthritis Assessment/Plan 1 right hip severe degenerative arthritis Lumbosacral radiculopathy Suraj Huynh is a 81 y.o. year old female withRight hip osteoarthritis Again x-rays were explained to the patient and treatment options were discussed at length. She has central degenerative arthritis of her right hip joint along with severe osteoporosis. Different options were discussed at length with the patient. Surgical and nonsurgical. She continues to have significant pain interfering with her activities of daily living. She is fairly active for her age and lives alone. She works out on a regular basis at the hospital gym. Overall she is fairly healthy for her age with her primary medical issue being COPD with oxygen use at night. We discussed moving forward with medical clearances from her PCP and photographer portrait.Overall she seems to be a decent candidate for total joint arthroplasty. She would like to move forward with this because she continues to have significant pain. She has tried conservative treatments in the form of therapy and previous injections without improvement in her pain. Risk benefits and alternatives were discussed today in the clinic and informed consent was obtained risks being BLEEDING, INFECTION, NEUROVASCULAR INJURY, TENDON INJURY, IATROGENIC FRACTURES, LOOSENING, RECURRENT DISLOCATIONS, LIMB LENGTH INEQUALITY, NEED FOR MULTIPLE REVISIONS, RECURRENCE OF INFECTIONS, NEED FOR EXCISION ARTHROPLASTY, DEEP VEIN THROMBOSIS, PULMONARY EMBOLISM, MYOCARDIAL INFARCTION, STROKE, ANESTHETIC RISKS, MORTALITY, NEED FOR MULTIPLE REVISIONS AND PENITENTIARY PT AND REHAB. We did discuss that she might need to stay in the hospital overnight given her pulmonary complications.She demonstrated understanding of this and signed for the informed consent form. We will see her back postoperatively. Patient was also explained that she does have lumbosacral arthropathy and this part of the radicular pain may not completely go after the hip arthroplasty. Patient had questions about general anesthesia and I recommend that she direct these questions to her anesthesiolo (more content not included)...[facility]04-14-2023 NoteOrthopedic Surgery Subjective Follow-up and Pain of the Right Hip 07/06/22 Suraj Huynh is a 81 y.o. female presenting for evaluation of right hip pain for approximately one year now. Almost falls, has pain at night, gets better after she starts moving, if turns leg a certain way it really hurts. She hasn't done therapy recently due to pain and being unable to perform the exercises, but she has done therapy in the past for cardiac reasons. She had an injection to the right greater trochanter which did not help her. Put off surgery due to macular degeneration and was getting injections. She has asthma and copd, she sees a photographer portrait. Wears oxygen at night. Denies heart attacks, strokes, diabetes, kidney issues. Lives at home alone in a small apartment but she is right across the street from her son. She states she does not use a walker or cane at baseline but has a walker for when her hip pain does get super bad. She does state that she broke her foot approximately a year ago. PCP Dr. linda Review of Systems unremarkable aside from what is noted in HPI Review of Systems positive for: Patient History Past Surgical History: Procedure Laterality Date HYSTERECTOMY KNEE SURGERY Bilateral TONSILECTOMY, ADENOIDECTOMY, BILATERAL MYRINGOTOMY AND TUBES Past Medical History: Diagnosis Date Asthma Objective General: Body mass index is 26.95 kg/m???. No acute distress, comfortable Respiratory: Unlabored breathing with normal rate, no cough Cardiovascular: Warm well perfused extremities Psych: Appropriate mood behavior Right Hip: Inspection- no ecchymosis, no edema Tender to palpation over Greater trochanter and deep within the groin Hip ROM: Internal Rotation 0??? External Rotation 25??? Flexion 110??? Positive Trendelenburg lurch noted. Positive antalgia. Positive logroll test, positive Stinchfield sign. Strength: Hip Flexion 5/5 Hip Extension 5/5 Hip Abduction 5/5 Hip Adduction 5/5 Knee Flexion 4/5 Knee Extension 4/5 Sensation: intact over superficial peroneal, deep peroneal and tibial nerve distributions Patient is able to get up out of the chair without any assistance and walk over to the table without significant debility or unsteadiness Walks with antalgia and positive Trendelenburg lurch. Imaging personally reviewed: X-rays obtained today of the right hip multiple views that were taken today were seen by myself and read. Independently which show the patient demonstrate severe joint space narrowing compared to the right side with subchondral sclerosis cystic changes and osteophyte formation, indicative of [id number] arthritis Assessment/Plan 1 right hip severe degenerative arthritis Lumbosacral radiculopathy Suraj Huynh is a 81 y.o. year old female withRight hip osteoarthritis Discussed clinical and radiographic findings with the patient today. She continues to have significant pain interfering with her activities of daily living. She is fairly active for her age and lives alone. She works out on a regular basis at the hospital gym. Overall she is fairly healthy for her age with her primary medical issue being COPD with oxygen use at night. We discussed moving forward with medical clearances from her PCP and photographer portrait.Overall she seems to be a decent candidate for total joint arthroplasty. She would like to move forward with this because she continues to have significant pain. She has tried conservative treatments in the form of therapy and previous injections without improvement in her pain. Risk benefits and alternatives were discussed today in the clinic and informed consent was obtained risks being BLEEDING, INFECTION, NEUROVASCULAR INJURY, TENDON INJURY, IATROGENIC FRACTURES, LOOSENING, RECURRENT DISLOCATIONS, LIMB LENGTH INEQUALITY, NEED FOR MULTIPLE REVISIONS, RECURRENCE OF INFECTIONS, NEED FOR EXCISION ARTHROPLASTY, DEEP VEIN THROMBOSIS, PULMONARY EMBOLISM, MYOCARDIAL INFARCTION, STROKE, ANESTHETIC RISKS, MORTALITY, NEED FOR MULTIPLE REVISIONS AND BOX CAR CHECKER PT AND REHAB. We did discuss that she might need to stay in the hospital overnight given her pulmonary complications.She demonstrated understanding of this and signed for the informed consent form. We will see her back postoperatively. Patient was also explained that she does have lumbosacral arthropathy and this part of the radicular pain may not completely go after the hip arthroplasty. She will need medical and medical clearance if required due to her COPD. Tori Lee MD By using the attestations below, the signing clinician agrees that I have read and verify that the documentation has been personally reviewed by me and ensure that the documentation accurately reflects the encounter. GC: I personally saw this patient on the day of the encounter, performed the sánchez portion(s) of the service and participated in the management and confirm the residen (more content not included)...[facility] 05-28-2022 Evaluation note* Encounter Date Diagnosis Assessment Notes Treatment Notes Treatment Clinical Notes May, Asthma with COPD (ICD-10 - J44.9) [facility] Other 09-20-2022 Evaluation note* Encounter Date Diagnosis Assessment Notes Treatment Notes Treatment Clinical Notes Nov, Asthma with COPD (ICD-10 - J44.9) Nov, Diastolic dysfunction without heart failure (ICD-10 - I51.9) [facility] Other 08-24-2022 Evaluation note* Encounter Date Diagnosis Assessment Notes Treatment Notes Treatment Clinical Notes Oct, Diastolic dysfunction without heart failure (ICD-10 - I51.9) [facility] Other 08-16-2022 NotePROCEDURE: XR HIP RT 2 3V WO PELVIS HISTORY: Pain in right hip joint ; acute anterior right hip/groin pain since fall 2 months ago, right leg pain COMPARISON: XR hip right 10/06/2018 FINDINGS: BONES:Small, angulated ossification adjacent the anterior femoral neck on the frog-leg view without appreciable donor site or visible fracture line. Marked narrowing of the medial aspect of the hip joint space. SOFT TISSUES:No visible soft tissue swelling. EFFUSION:None visible. OTHER: Negative. IMPRESSION: 1. Nonspecific ossification anterior to the femoral neck but suggestive of a cortical fragment. No visible donor site/fracture. Consider follow-up MRI of right hip for further evaluation. 2. Moderate-marked joint space narrowing consistent with degenerative joint disease. Electronically authenticated by: JANE CHERRY Date: 2021-11-07 08:47[facility]08-05-2022 Evaluation note* Encounter Date Diagnosis Assessment Notes Treatment Notes Treatment Clinical Notes Oct, Closed nondisplaced fracture of fifth metatarsal bone of left foot with routine healing, subsequent encounter (ICD-10 - S92.355D) Suraj returns with left base of fifth metatarsal fracture. At this juncture we have discussed the findings and diagnosis as well as personally reviewed appropriate imaging and performed interpretation of related testing and examination with the patient in office today. She has returned to normal shoewear and function without issues at this time. She denies any pain at this time. We discussed that this could be going on to a fibrous nonunion but as long as she is having normal activities without issues then I would not change her treatment plan. She can continue activities as tolerated without restrictions. She may follow-up as needed from now The patient has been involved in our cooperative treatment plan and agrees to move forward with treatment at this time. X-rays reviewed with patient and family member today. Patient instructed on continuing with gentle motion and strength exercise. Patient instructed on ice and elevation for swelling and pain relief. Activity as tolerated. Call with any questions or concerns. [facility] Other 07-01-2022 Evaluation note* Encounter Date Diagnosis Assessment Notes Treatment Notes Treatment Clinical Notes Sep, Closed nondisplaced fracture of fifth metatarsal bone of left foot, initial encounter (ICD-10 - S92.355A) Suraj presents with left base of fifth metatarsal fracture. At this juncture we have discussed the findings and diagnosis as well as personally reviewed appropriate imaging and performed interpretation of related testing and examination with the patient in office today. Prior medical notes from outside ED and history have been reviewed. At this time I would recommend cam boot with weightbearing as tolerated inside of boot. She can remove boot for hygiene purposes and sleep. We will plan for follow-up 6 weeks with repeat x-rays. The patient has been involved in our cooperative treatment plan and agrees to move forward with treatment at this time. Patient has sustained a 5th metatarsal fracture. We discussed that this can take at least 6 weeks to heal. We will allow gentle ankle and foot motion and gentle progressive weight bearing as tolerated as pain allows. Patient placed in tall CAM boot. Sep, Other See orders for this visit as documented in the electronic medical record. [facility] Other 06-24-2022 NotePROCEDURE: XR FOOT LT MIN 3 VIEWS, XR ANKLE LT MIN 3 V HISTORY: Pain in left foot COMPARISON: None. FINDINGS: BONES:Nonspecific fracture at base of fifth metatarsal. Cortical avulsion fracture adjacent tip of lateral malleolus. Bunion formation and mild lateral deviation of the first toe. SOFT TISSUES:Calcifications dorsal to the anterior talus favoring heterotopic bone formation from remote injuries. EFFUSION:None visible. OTHER: Negative. IMPRESSION: 1. Acute to early subacute nondisplaced fracture at base of fifth metatarsal. 2. Suspect acute to early subacute nondisplaced cortical avulsion fracture from tip of lateral malleolus. Electronically authenticated by: JANE CHERRY Date: 2021-09-15 13:23[facility]06-24-2022 NotePROCEDURE: XR FOOT LT MIN 3 VIEWS, XR ANKLE LT MIN 3 V HISTORY: Pain in left foot COMPARISON: None. FINDINGS: BONES:Nonspecific fracture at base of fifth metatarsal. Cortical avulsion fracture adjacent tip of lateral malleolus. Bunion formation and mild lateral deviation of the first toe. SOFT TISSUES:Calcifications dorsal to the anterior talus favoring heterotopic bone formation from remote injuries. EFFUSION:None visible. OTHER: Negative. IMPRESSION: 1. Acute to early subacute nondisplaced fracture at base of fifth metatarsal. 2. Suspect acute to early subacute nondisplaced cortical avulsion fracture from tip of lateral malleolus. 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 Turn up oxygen to 4L with walking or other activity. Monitor pulse ox frequently. If unable to maintain oxygen level 90% or above, go to ER to be evaluated. [facility] Other 10-01-2021 History general Narrative - Reported* Type Description Date Medical History asthma as a child Medical History COPD/emphysema Medical History diastolic dysfunction w/o heart failure Medical History Covid 12/2020 Medical History Glaucoma left eye Surgical History tonsillectomy and adenoidectomy 194 Surgical History hysterectomy Surgical History hernia repair Hospitalization History as above Hospitalization History pneumonia 2016 Hospitalization History copd x2 09/2019 [facility] Other 10-01-2021 History general Narrative - Reported* Type Description Date Medical History asthma as a child Medical History COPD/emphysema Medical History diastolic dysfunction w/o heart failure Medical History Covid 12/2020 Medical History Glaucoma left eye Medical History Macular degeneration right eye Surgical History tonsillectomy and adenoidectomy 1942 Surgical History hysterectomy Surgical History hernia repair Surgical History Eye injections rt. eye macular degeneration Hospitalization History as above Hospitalization History pneumonia 2016 Hospitalization History copd x2 09/2019 [facility] Other 10-01-2021 History general Narrative - Reported* Type Description Date Medical History asthma as a child Medical History COPD/emphysema Medical History diastolic dysfunction w/o heart failure Medical History Covid 12/2020 Medical History Glaucoma left eye Medical History Macular degeneration right eye Surgical History tonsillectomy and adenoidectomy 194 Surgical History hysterectomy Surgical History hernia repair Surgical History Eye injections rt. eye macular degeneration Surgical History rt. total hip replacement 3 Hospitalization History as above Hospitalization History pneumonia 2015 Hospitalization History copd x2 09/2019 Hospitalization History Surgery [facility] 09/2022 [facility] Other Evaluation + Plan note Future Appointments Appointment Date:10/02/2022 01:00:00 PM Scheduled Provider: Location:[facility] Lorri App[facility]ment Type[facility] Wellness [facility]ments Appointment Date:11/14/2023 11:00:00 AM Scheduled [facility] Type:FM Medicare Wellness Subsequent [facility] evaluation + Plan note Future Appointments Appointment Date:04/06/2024 10:20:00 AM Scheduled Provider:Winter Noriega [facility] App[facility] Type:FM Open Appointment Date:12/22/2024 11:00:00 AM Scheduled Provider: [facility] App[facility] Type: Medicare Wellness Subsequent [facility] evaluation noteNo assessment information available [facility] Work Phone: evaluation note* Diagnosis Onset Date Resolution Status Asthma with COPD acute Diastolic dysfunction without heart failure acute [facility] Work Phone: evaluation note* Diagnosis Type II diabetes mellitus with neurological manifestations ([facility])- Primary Type II or unspecified type diabetes mellitus with neurological manifestations, not stated as uncontrolled PAD (peripheral artery disease) ([facility]) Unspecified peripheral vascular disease Hallux valgus of left foot Onychomycosis Dermatophytosis of nail Pain in right toe(s) Pain in left toe(s) documented in this encounter [facility] HealthcareEvaluation note* Diagnosis Hallux valgus of left foot- Primary PAD (peripheral artery disease) ([facility]) Unspecified peripheral vascular disease 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 documented in this encounter [facility] HealthcareEvaluation note* Diagnosis Sensorineural hearing loss (SNHL) of both ears- Primary documented in this encounter [facility] HealthcareEvaluation note* Diagnosis Sensorineural hearing loss (SNHL) of both ears- Primary documented in this encounter [facility] HealthcareHospital course Narrative No data available for this section [facility] No data available for this section [facility] No data available for this section [facility] Summary Purpose Family History No Family History Records Found Relationship Condition Age at Onset Recorded Date/T henrry brother Malignant neoplasm Unknown father Diabetes mellitus Unknown Not Specified Hypertension Unknown Relationship Condition Age at Onset Recorded Date/T henrry brother Malignant neoplasm Unknown father Diabetes mellitus Unknown mother Hypertension Unknown Advance Directives No Advanced Directives Records Found Advance Directive Response Recorded Date/ Time Advance Directives No October 26 2:04pm Advance Directive Response Recorded Date/ Time Advance Directives Yes June 10 11:02am Chief Complaint and Reason for Visit Chief Complaint S92.355D Chief Complaint 6 Month f/u- Asthma w/COPD Diastolic Dysfunction Reason for Visit Asthma with COPD Diastolic dysfunction without heart failure Chief Complaint H mo f/u Asthma w COPD Reason for Visit Asthma with COPD Diastolic dysfunction without heart failure Additional Source Comments REASON FOR VISIT (unrecogniz ed section and content) Reason Comments Toenail Care Non dm nail care Reason Comments Follow-up F/U PVR results INFORMATION SOURCE (unrecogn ized section and content) DATE CREATED AUTHOR 10/30/2021 [facility] DATE CREATED AUTHOR AUTHOR'S ORGANIZ ATION 11/16/2021 [facility] DATE CREATED AUTHOR AUTHOR'S ORGANIZ ATION 11/30/2021 [facility] DATE CREATED AUTHOR AUTHOR'S ORGANIZ ATION 11/01/2022 [facility] DATE CREATED AUTHOR AUTHOR'S ORGANIZ ATION 01/20/2023 [facility] DATE CREATED AUTHOR AUTHOR'S ORGANIZ ATION 10/26/2023 [facility] DATE CREATED AUTHOR AUTHOR'S ORGANIZ ATION 11/15/2023 [facility] DATE CREATED AUTHOR AUTHOR'S ORGANIZ ATION 03/06/2024 [facility] DATE CREATED AUTHOR AUTHOR'S ORGANIZ ATION 04/02/2024 [facility] [employer] Care Teams (unrecognized sec tion and content) Team Status: Inactive Member Role Status Dates India Linda MD Primary Care Provider Active Jacob Finley DO Attending Provider Active Team Status: Active Member Role Status Dates India Linda MD Primary Care Provider Active Team Status: Inactive Member Role Status Dates India Linda MD Primary Care Provider Active S tart: June 11, 2023 End: June 11, 2023 Fior Collins APRN ACNP-BC Attending Provider Active Start: June 11, 2023 End: June 11, 2023 DME Active Start: June 102023 End: June 11, 2023 Team Status: Inactive Member Role Status Dates India Linda MD Primary Care Provider Active S tart: December 18, 2023 End: December 18, 2023 Fior Collins APRN [facility] Attending Provider Active Start: December 18, 2023 End: December 18, 2023 Meter Reading Clerk Relationship Specialty Start Date End Date Unallocated, Rodolfo Rothman MD [address] [place] [id number] PCP - General Family Medicine 11/11/23 Winter Allen MD [address] [place] [address] [phone] Referring Physician Family Medicine 06/17/23 Meter Reading Clerk Relationship Specialty Start Date End Date Unallocated, MD Ruben Chinchilla [place] [address] PCP - General Family Medicine 11/11/23 Winter Allen MD [address] [place] [phone] Referring Physician Family Medicine 06/17/23 Meter Reading Clerk Relationship Specialty Start Date End Date Unallocated, Rodolfo Rothman MD [facility] [place] [address] PCP - General Family Medicine 11/11/23 Winter Allen MD [address] [place] [phone] Referring Physician Family Medicine 06/17/23 Meter Reading Clerk Relationship Specialty Start Date End Date Unallocated, Rodolfo Rothman MD [facility] [place] [address] PCP - General Family Medicine 11/11/23 Winter Allen MD [address] [place] [phone] Referring Physician Family Medicine 06/17/23 Meter Reading Clerk Relationship Specialty Start Date End Date Unallocated, Rodolfo Rothman MD [address] [place] [address] PCP - General Family Medicine 11/11/23 Winter Allen MD [address] [place] [address] [phone] Referring Physician Family Medicine 06/17/23 Meter Reading Clerk Relationship Specialty Start Date End Date Unallocated, Rodolfo Rothman MD [address] [place] [address] PCP - General Family Medicine 11/11/23 Winter Allen MD [address] [place] [phone] Referring Physician Family Medicine 06/17/23 Meter Reading Clerk Relationship Specialty Start Date End Date Unallocated, Rodolfo Rothman MD [address] [place] [address] PCP - General Family Medicine 11/11/23 Winter Allen MD [address] [place] [phone] Referring Physician Family Medicine 06/17/23 Goals (unrecognized section and content) Goals may be documented in a n alternate section FOR RECORDS PERTAINING TO PATIENTS WHO ARE OR HAVE BEEN ENROLLED IN A CHEMICAL DEPENDENCY/SUBSTANCEABUSE PROGRAM, SOME INFORMATION MAY BE OMITTED. This clinical summary was aggregated from multiple sources. Caution should be exercised in using it in the provision of clinical care. This summary normalizes information from multiple sources, and as a consequence, information in this document may materially change the coding, format and clinical context of patient data. In addition, data may be omitted in some cases. CLINICAL DECISIONS SHOULD BE BASED ON THE PRIMARY CLINICAL RECORDS. [facility]. provides no warranty or guarantee of the accuracy or completeness of information in this document.
--- NOTE | 2024-04-06 13:56 | ECG_ITS ---
[facility] Test Date: 2024-04-06 Pat Name: SURAJ LEWIS Department: Room: - Gender: Female Spine Specialist: : [id number] Requested By: [id number] Order Number: [id number] Reading MD: VALDEMAR HERNADEZ Measurements Intervals [place] Rate: 52 P: 81 [place]: 156 QRS: 65 QRSD: 97 T: 67 QT: 415 QTc: 389 Interpretive Statements SINUS BRADYCARDIA INCOMPLETE RIGHT BUNDLE BRANCH BLOCK Electronically Signed On 04-06-2024 20:40:46 EST by VALEDMAR HERNADEZ
== END 2024-04-06 11:39 | disposition home or self-care (01) ==
LOC: CARD 11:39
PROVIDERS: PCP Nurse Practitioner; Visit Provider Podiatrist Foot & Ankle Surgery
DX: Z01.818 Encounter for other preprocedural examination (principal); R00.1 Bradycardia, unspecified
CPT/HCPCS: 93005

== ENCOUNTER 2024-08-19 15:35 | Outpatient (RCR) | payer MEDICARE, SELFPAY | END 2024-09-24 06:54 | disposition home or self-care (01) | LOC: PT 15:35 | PROVIDERS: PCP Nurse Practitioner; Visit Provider Nurse Practitioner | DX: M99.79 Connective tissue and disc stenosis of intervertebral foramina of abdomen and other regions (principal); M70.61 Trochanteric bursitis, right hip; Z68.25 Body mass index [BMI] 25.0-25.9, adult; Z78.9 Other specified health status | CPT/HCPCS: 97110; 97112; 97140; 97163 ==